=== PATIENT | female | born 1960 | race Caucasian/White ===

== ENCOUNTER 2017-12-10 13:40 | Emergency (ER) | payer BC, MEDICAID ==
[~2017-12-10] VITALS: Ht 165.1 cm; Wt 93.2 kg
[~2017-12-10 13:40] MED LIST: ALBU8.5H8 INH; ASPI-611 PO; ATOR40TA PO; CALC300T4 PO; CYAN25004 PO; FENO134C PO; FERR325T28 PO; FISH1CAP15 PO; FLUT1AER INH; GABA-532 PO; GLUC1KIT IM; HYDR-565 PO; LACT1CAP26 PO; LANTUS SQ; LEVO50TA PO; MAGN500C16 PO; MELA3TAB PO; MULT-1085 PO; NITR0.4T51 SL; NOR5T PO; PANT40TA4 PO; SENN-93 PO; SERT50TA PO; SEVE800T8 PO
[2017-12-10] MEDS ORDERED: furosemide 10 MG/1 ML 10ml inj IV ONE (14:10)
[2017-12-10 14:36] LABS: INR 0.9 INR; PROTHROMBIN TIME 9.7 SECONDS (9.0-12.0)
[2017-12-10 14:38] LABS: BASOPHILS % (AUTO) 0.5 % (0-1); EOSINOPHILS # (AUTO) 0.2 X10'3 (0-0.9); EOSINOPHILS % (AUTO) 4.5 % (0-6); HEMATOCRIT 27.4 % (35.0-45.0); HEMOGLOBIN 9.3 g/dl (12.0-16.0); LYMPHOCYTES # (AUTO) 0.8 X10'3 (1.1-4.8); LYMPHOCYTES % (AUTO) 15.3 % (21-51); MEAN CORPUSCULAR HEMOGLOBIN 31.6 PG (27.0-31.0); MEAN CORPUSCULAR HGB CONC 34.1 % (33.0-36.5); MEAN CORPUSCULAR VOLUME 92.5 FL (78-98); MEAN PLATELET VOLUME 8.5 FL (7.4-10.4); MONOCYTES # (AUTO) 0.3 X10'3 (0-0.9); MONOCYTES % (AUTO) 5.3 % (2-12); NEUTROPHILS # (AUTO) 4.1 X10'3 (1.8-7.7); NEUTROPHILS % (AUTO) 74.4 % (42-75); PLATELET COUNT 168 X10'3 (140-440); RED BLOOD COUNT 2.96 X10'6 (4.20-5.60); RED CELL DISTRIBUTION WIDTH 17.6 % (11.5-14.5); WHITE BLOOD COUNT 5.5 X10'3 (4.5-11.0)
[2017-12-10 14:42] LABS: ALANINE AMINOTRANSFERASE 41 U/L (12-78); ALBUMIN 2.4 G/DL (3.4-5.0); ALBUMIN/GLOBULIN RATIO 0.5 (1.1-1.5); ALKALINE PHOSPHATASE 135 IU/L (46-116); ANION GAP 12 (8-16); ASPARTATE AMINO TRANSFERASE 24 U/L (10-37); BILIRUBIN,TOTAL 0.4 MG/DL (0.1-1.0); BLOOD UREA NITROGEN 47 MG/DL (7-18); CALCIUM 8.4 MG/DL (8.5-10.1); CHLORIDE 105 MMOL/L (99-107); CREATININE 2.47 MG/DL (0.40-0.90); GLUCOSE 210 MG/DL (70-104); POTASSIUM 4.6 MMOL/L (3.5-5.1); SODIUM 142 MMOL/L (135-145); TOTAL CARBON DIOXIDE 25.5 MMOL/L (24-32); TOTAL PROTEIN 7.1 G/DL (6.4-8.2); eGFR 20 ML/MIN
[2017-12-10] MEDS ORDERED: FURO-149 PO (15:03)
[2017-12-10 15:28] VITALS: BP 173/78
== END 2017-12-10 15:30 | disposition home or self-care (01) ==
LOC: ER 13:41
DX: I13.0 Hypertensive heart and chronic kidney disease with heart failure and stage 1 through stage 4 chronic kidney disease, or unspecified chronic kidney disease (principal); E11.22 Type 2 diabetes mellitus with diabetic chronic kidney disease; N18.9 Chronic kidney disease, unspecified; I50.9 Heart failure, unspecified; R60.9 Edema, unspecified; I25.10 Atherosclerotic heart disease of native coronary artery without angina pectoris; J45.909 Unspecified asthma, uncomplicated; G89.29 Other chronic pain; Z90.49 Acquired absence of other specified parts of digestive tract; Z98.61 Coronary angioplasty status; Z88.1 Allergy status to other antibiotic agents; Z79.82 Long term (current) use of aspirin; Z79.4 Long term (current) use of insulin; Z79.899 Other long term (current) drug therapy; Z60.2 Problems related to living alone
CPT/HCPCS: 36415; 71045; 80053; 83880; 84484; 85025; 85610; 93005; 96374; 99285; J1940

== ENCOUNTER 2017-12-13 09:22 | Day surgery (SDC) | payer BC, MEDICAID ==
[~2017-12-13 09:22] MED LIST changes: +FURO-149 PO
[2017-12-13] MEDS ORDERED: LIDOcaine/PRILOcaine 5gm cream TP ONE (10:00)
== END 2017-12-13 10:38 | disposition home or self-care (01) ==
LOC: WOUND CARE 09:22
PROVIDERS: ATTEND Surgery
DX: E11.622 Type 2 diabetes mellitus with other skin ulcer (principal); L98.492 Non-pressure chronic ulcer of skin of other sites with fat layer exposed; K61.0 Anal abscess; E11.22 Type 2 diabetes mellitus with diabetic chronic kidney disease; I13.0 Hypertensive heart and chronic kidney disease with heart failure and stage 1 through stage 4 chronic kidney disease, or unspecified chronic kidney disease; I50.30 Unspecified diastolic (congestive) heart failure; I25.10 Atherosclerotic heart disease of native coronary artery without angina pectoris; J45.909 Unspecified asthma, uncomplicated; N18.4 Chronic kidney disease, stage 4 (severe); J44.0 Chronic obstructive pulmonary disease with (acute) lower respiratory infection; G89.29 Other chronic pain; E78.5 Hyperlipidemia, unspecified; E87.1 Hypo-osmolality and hyponatremia; E66.01 Morbid (severe) obesity due to excess calories; E89.0 Postprocedural hypothyroidism; E11.42 Type 2 diabetes mellitus with diabetic polyneuropathy; E11.649 Type 2 diabetes mellitus with hypoglycemia without coma; E43 Unspecified severe protein-calorie malnutrition; F32.9 Major depressive disorder, single episode, unspecified; F17.200 Nicotine dependence, unspecified, uncomplicated; Z98.51 Tubal ligation status; Z90.49 Acquired absence of other specified parts of digestive tract; Z79.82 Long term (current) use of aspirin; Z79.4 Long term (current) use of insulin; Z79.899 Other long term (current) drug therapy; Z68.33 Body mass index [BMI] 33.0-33.9, adult; Z79.890 Hormone replacement therapy; Z79.84 Long term (current) use of oral hypoglycemic drugs; Z92.3 Personal history of irradiation; Z85.850 Personal history of malignant neoplasm of thyroid; Z95.5 Presence of coronary angioplasty implant and graft; Z71.6 Tobacco abuse counseling
CPT/HCPCS: 17250; 36416; 82948; A6266; 97597

== ENCOUNTER 2017-12-20 10:25 | Outpatient (CLI) | payer BC, MEDICAID ==
[~2017-12-20 10:25] MED LIST changes: +HYDR-4353 PO; -HYDR-565 PO
[2017-12-20] MEDS ORDERED: LIDOcaine/PRILOcaine 5gm cream TP ONE (11:27)
== END 2017-12-20 12:40 | disposition home or self-care (01) ==
LOC: WOUND CARE 10:25 → EDSTATUS 10:30 → WOUND CARE 12:40
PROVIDERS: ATTEND Surgery
DX: E11.622 Type 2 diabetes mellitus with other skin ulcer (principal); L98.492 Non-pressure chronic ulcer of skin of other sites with fat layer exposed; K61.0 Anal abscess; E11.22 Type 2 diabetes mellitus with diabetic chronic kidney disease; I13.0 Hypertensive heart and chronic kidney disease with heart failure and stage 1 through stage 4 chronic kidney disease, or unspecified chronic kidney disease; I50.30 Unspecified diastolic (congestive) heart failure; I25.10 Atherosclerotic heart disease of native coronary artery without angina pectoris; J45.909 Unspecified asthma, uncomplicated; N18.4 Chronic kidney disease, stage 4 (severe); J44.0 Chronic obstructive pulmonary disease with (acute) lower respiratory infection; G89.29 Other chronic pain; E78.5 Hyperlipidemia, unspecified; E87.1 Hypo-osmolality and hyponatremia; E66.01 Morbid (severe) obesity due to excess calories; E89.0 Postprocedural hypothyroidism; E11.42 Type 2 diabetes mellitus with diabetic polyneuropathy; E11.649 Type 2 diabetes mellitus with hypoglycemia without coma; E43 Unspecified severe protein-calorie malnutrition; F32.9 Major depressive disorder, single episode, unspecified; F17.200 Nicotine dependence, unspecified, uncomplicated; Z98.51 Tubal ligation status; Z90.49 Acquired absence of other specified parts of digestive tract; Z79.82 Long term (current) use of aspirin; Z79.4 Long term (current) use of insulin; Z79.899 Other long term (current) drug therapy; Z68.33 Body mass index [BMI] 33.0-33.9, adult; Z79.890 Hormone replacement therapy; Z79.84 Long term (current) use of oral hypoglycemic drugs; Z92.3 Personal history of irradiation; Z85.850 Personal history of malignant neoplasm of thyroid; Z95.5 Presence of coronary angioplasty implant and graft; Z71.6 Tobacco abuse counseling
CPT/HCPCS: 36416; 82948; 99215; A6266

== ENCOUNTER 2018-01-10 10:30 | Day surgery (SDC) | payer BC, MEDICAID ==
[~2018-01-10 10:30] MED LIST changes: +LEVO250T58 PO; -MAGN500C16 PO; +PRED5TAB PO
== END 2018-01-10 12:57 | disposition home or self-care (01) ==
LOC: WOUND CARE 10:30
PROVIDERS: ATTEND Surgery
DX: E11.622 Type 2 diabetes mellitus with other skin ulcer (principal); L98.492 Non-pressure chronic ulcer of skin of other sites with fat layer exposed; K61.0 Anal abscess; E11.22 Type 2 diabetes mellitus with diabetic chronic kidney disease; I13.0 Hypertensive heart and chronic kidney disease with heart failure and stage 1 through stage 4 chronic kidney disease, or unspecified chronic kidney disease; I50.30 Unspecified diastolic (congestive) heart failure; I25.10 Atherosclerotic heart disease of native coronary artery without angina pectoris; J45.909 Unspecified asthma, uncomplicated; N18.4 Chronic kidney disease, stage 4 (severe); J44.0 Chronic obstructive pulmonary disease with (acute) lower respiratory infection; G89.29 Other chronic pain; E78.5 Hyperlipidemia, unspecified; E87.1 Hypo-osmolality and hyponatremia; E66.01 Morbid (severe) obesity due to excess calories; E89.0 Postprocedural hypothyroidism; E11.42 Type 2 diabetes mellitus with diabetic polyneuropathy; E11.649 Type 2 diabetes mellitus with hypoglycemia without coma; E43 Unspecified severe protein-calorie malnutrition; F32.9 Major depressive disorder, single episode, unspecified; F17.200 Nicotine dependence, unspecified, uncomplicated; Z98.51 Tubal ligation status; Z90.49 Acquired absence of other specified parts of digestive tract; Z79.82 Long term (current) use of aspirin; Z79.4 Long term (current) use of insulin; Z79.899 Other long term (current) drug therapy; Z68.33 Body mass index [BMI] 33.0-33.9, adult; Z79.890 Hormone replacement therapy; Z79.84 Long term (current) use of oral hypoglycemic drugs; Z92.3 Personal history of irradiation; Z85.850 Personal history of malignant neoplasm of thyroid; Z95.5 Presence of coronary angioplasty implant and graft; Z71.6 Tobacco abuse counseling
CPT/HCPCS: 97597; A6266

== ENCOUNTER 2018-01-24 11:06 | Outpatient (CLI) | payer BC, MEDICAID ==
[~2018-01-24 11:06] MED LIST changes: -LEVO250T58 PO
== END 2018-01-24 12:26 | disposition home or self-care (01) ==
LOC: WOUND CARE 11:06
PROVIDERS: ATTEND Surgery
DX: E11.622 Type 2 diabetes mellitus with other skin ulcer (principal); L98.492 Non-pressure chronic ulcer of skin of other sites with fat layer exposed; K61.0 Anal abscess; E11.22 Type 2 diabetes mellitus with diabetic chronic kidney disease; I13.0 Hypertensive heart and chronic kidney disease with heart failure and stage 1 through stage 4 chronic kidney disease, or unspecified chronic kidney disease; I50.30 Unspecified diastolic (congestive) heart failure; I25.10 Atherosclerotic heart disease of native coronary artery without angina pectoris; J45.909 Unspecified asthma, uncomplicated; N18.4 Chronic kidney disease, stage 4 (severe); J44.0 Chronic obstructive pulmonary disease with (acute) lower respiratory infection; G89.29 Other chronic pain; E78.5 Hyperlipidemia, unspecified; E87.1 Hypo-osmolality and hyponatremia; E66.01 Morbid (severe) obesity due to excess calories; E89.0 Postprocedural hypothyroidism; E11.42 Type 2 diabetes mellitus with diabetic polyneuropathy; E11.649 Type 2 diabetes mellitus with hypoglycemia without coma; E43 Unspecified severe protein-calorie malnutrition; F32.9 Major depressive disorder, single episode, unspecified; F17.200 Nicotine dependence, unspecified, uncomplicated; Z98.51 Tubal ligation status; Z90.49 Acquired absence of other specified parts of digestive tract; Z79.82 Long term (current) use of aspirin; Z79.4 Long term (current) use of insulin; Z79.899 Other long term (current) drug therapy; Z68.33 Body mass index [BMI] 33.0-33.9, adult; Z79.890 Hormone replacement therapy; Z79.84 Long term (current) use of oral hypoglycemic drugs; Z92.3 Personal history of irradiation; Z85.850 Personal history of malignant neoplasm of thyroid; Z95.5 Presence of coronary angioplasty implant and graft; Z71.6 Tobacco abuse counseling
CPT/HCPCS: 99215; A6021

== ENCOUNTER 2018-01-31 08:52 | Day surgery (SDC) | payer BC, MEDICAID | END 2018-01-31 10:12 | disposition home or self-care (01) | LOC: WOUND CARE 08:52 | PROVIDERS: ATTEND Surgery | DX: E11.622 Type 2 diabetes mellitus with other skin ulcer (principal); L98.492 Non-pressure chronic ulcer of skin of other sites with fat layer exposed; K61.0 Anal abscess; E11.22 Type 2 diabetes mellitus with diabetic chronic kidney disease; I13.0 Hypertensive heart and chronic kidney disease with heart failure and stage 1 through stage 4 chronic kidney disease, or unspecified chronic kidney disease; I50.30 Unspecified diastolic (congestive) heart failure; I25.10 Atherosclerotic heart disease of native coronary artery without angina pectoris; J45.909 Unspecified asthma, uncomplicated; N18.4 Chronic kidney disease, stage 4 (severe); J44.0 Chronic obstructive pulmonary disease with (acute) lower respiratory infection; G89.29 Other chronic pain; E78.5 Hyperlipidemia, unspecified; E87.1 Hypo-osmolality and hyponatremia; E66.01 Morbid (severe) obesity due to excess calories; E89.0 Postprocedural hypothyroidism; E11.42 Type 2 diabetes mellitus with diabetic polyneuropathy; E11.649 Type 2 diabetes mellitus with hypoglycemia without coma; E43 Unspecified severe protein-calorie malnutrition; F32.9 Major depressive disorder, single episode, unspecified; F17.200 Nicotine dependence, unspecified, uncomplicated; Z98.51 Tubal ligation status; Z90.49 Acquired absence of other specified parts of digestive tract; Z79.82 Long term (current) use of aspirin; Z79.4 Long term (current) use of insulin; Z79.899 Other long term (current) drug therapy; Z68.33 Body mass index [BMI] 33.0-33.9, adult; Z79.890 Hormone replacement therapy; Z79.84 Long term (current) use of oral hypoglycemic drugs; Z92.3 Personal history of irradiation; Z85.850 Personal history of malignant neoplasm of thyroid; Z95.5 Presence of coronary angioplasty implant and graft; Z71.6 Tobacco abuse counseling | CPT/HCPCS: 97597; A6021 ==

== ENCOUNTER 2018-02-21 10:01 | Outpatient (CLI) | payer BC, MEDICAID ==
[2018-02-21] MEDS ORDERED: BUDE10.2 INH (14:48)
== END 2018-02-21 11:09 | disposition home or self-care (01) ==
LOC: WOUND CARE 10:01
PROVIDERS: ATTEND Surgery
DX: E11.622 Type 2 diabetes mellitus with other skin ulcer (principal); L98.492 Non-pressure chronic ulcer of skin of other sites with fat layer exposed; K61.0 Anal abscess; E11.22 Type 2 diabetes mellitus with diabetic chronic kidney disease; I13.0 Hypertensive heart and chronic kidney disease with heart failure and stage 1 through stage 4 chronic kidney disease, or unspecified chronic kidney disease; I50.30 Unspecified diastolic (congestive) heart failure; I25.10 Atherosclerotic heart disease of native coronary artery without angina pectoris; J45.909 Unspecified asthma, uncomplicated; N18.4 Chronic kidney disease, stage 4 (severe); J44.0 Chronic obstructive pulmonary disease with (acute) lower respiratory infection; G89.29 Other chronic pain; E78.5 Hyperlipidemia, unspecified; E87.1 Hypo-osmolality and hyponatremia; E66.01 Morbid (severe) obesity due to excess calories; E89.0 Postprocedural hypothyroidism; E11.42 Type 2 diabetes mellitus with diabetic polyneuropathy; E11.649 Type 2 diabetes mellitus with hypoglycemia without coma; E43 Unspecified severe protein-calorie malnutrition; F32.9 Major depressive disorder, single episode, unspecified; F17.200 Nicotine dependence, unspecified, uncomplicated; Z98.51 Tubal ligation status; Z90.49 Acquired absence of other specified parts of digestive tract; Z79.82 Long term (current) use of aspirin; Z79.4 Long term (current) use of insulin; Z79.899 Other long term (current) drug therapy; Z68.33 Body mass index [BMI] 33.0-33.9, adult; Z79.890 Hormone replacement therapy; Z79.84 Long term (current) use of oral hypoglycemic drugs; Z92.3 Personal history of irradiation; Z85.850 Personal history of malignant neoplasm of thyroid; Z95.5 Presence of coronary angioplasty implant and graft; Z71.6 Tobacco abuse counseling
CPT/HCPCS: 36416; 82948; 99215

== ENCOUNTER 2018-03-10 16:38 | Emergency (ER) | payer BC, MEDICAID ==
[~2018-03-10] VITALS: Ht 165.1 cm; Wt 90.0 kg
[~2018-03-10 16:38] MED LIST changes: +BUDE10.2 INH; -NOR5T PO
[2018-03-10 17:32] LABS: BASOPHILS % (AUTO) 0 % (0-1); EOSINOPHILS % (AUTO) 0 % (0-6); HEMOGLOBIN 11.9 g/dl (12.0-16.0); LYMPHOCYTES # (AUTO) 0.6 X10'3 (1.1-4.8); LYMPHOCYTES % (AUTO) 4.3 % (21-51); MEAN CORPUSCULAR HGB CONC 32.1 % (33.0-36.5); MEAN CORPUSCULAR VOLUME 96.3 FL (78-98); MEAN PLATELET VOLUME 7.8 FL (7.4-10.4); MONOCYTES # (AUTO) 0.5 X10'3 (0-0.9); MONOCYTES % (AUTO) 3.8 % (2-12); NEUTROPHILS # (AUTO) 12.5 X10'3 (1.8-7.7); NEUTROPHILS % (AUTO) 91.9 % (42-75); PLATELET COUNT 312 X10'3 (140-440); RED BLOOD COUNT 3.84 X10'6 (4.20-5.60); RED CELL DISTRIBUTION WIDTH 16.4 % (11.5-14.5); WHITE BLOOD COUNT 13.6 X10'3 (4.5-11.0)
[2018-03-10] MEDS ORDERED: vancomycin/NS 1 GM ADD-VANTAGE 250 ML IV ONE (17:55)
[2018-03-10] MEDS ORDERED: levoFLOXACIN-Levaquin 750MG/D5 150 ML IV ONE (17:55)
[2018-03-10 17:57] LABS: ALANINE AMINOTRANSFERASE 25 U/L (12-78); ALBUMIN/GLOBULIN RATIO 0.6 (1.1-1.5); ALKALINE PHOSPHATASE 69 IU/L (46-116); ANION GAP 11 (8-16); ASPARTATE AMINO TRANSFERASE 31 U/L (10-37); BILIRUBIN,TOTAL 0.7 MG/DL (0.1-1.0); BLOOD UREA NITROGEN 23 MG/DL (7-18); BUN/CREATININE RATIO 10.7 (6.6-38.0); CALCIUM 8.9 MG/DL (8.5-10.1); CHLORIDE 97 MMOL/L (99-107); CREATININE 2.14 MG/DL (0.40-0.90); GLUCOSE 120 MG/DL (70-104); POTASSIUM 3.3 MMOL/L (3.5-5.1); SODIUM 139 MMOL/L (135-145); TOTAL CARBON DIOXIDE 31.4 MMOL/L (24-32); TOTAL PROTEIN 8.1 G/DL (6.4-8.2); eGFR 24 ML/MIN
[2018-03-10] MEDS ORDERED: LEVO500T89 PO (19:28)
[2018-03-10 19:49] VITALS: BP 157/77
== END 2018-03-10 20:30 | disposition home or self-care (01) ==
LOC: ER 16:39
DX: J18.9 Pneumonia, unspecified organism (principal); J44.9 Chronic obstructive pulmonary disease, unspecified; I13.0 Hypertensive heart and chronic kidney disease with heart failure and stage 1 through stage 4 chronic kidney disease, or unspecified chronic kidney disease; E11.22 Type 2 diabetes mellitus with diabetic chronic kidney disease; N18.9 Chronic kidney disease, unspecified; I50.9 Heart failure, unspecified; G89.29 Other chronic pain; Z90.49 Acquired absence of other specified parts of digestive tract; Z98.61 Coronary angioplasty status; Z98.51 Tubal ligation status; Z99.2 Dependence on renal dialysis; Z88.1 Allergy status to other antibiotic agents; Z79.82 Long term (current) use of aspirin; Z79.4 Long term (current) use of insulin; Z79.899 Other long term (current) drug therapy; Z60.2 Problems related to living alone
CPT/HCPCS: 36415; 71046; 80053; 83605; 84145; 85025; 87040; 87502; 87503; 93005; 96365; 96366; 96367; 99284; J1956; J3370

== ENCOUNTER 2018-04-15 10:38 | Inpatient (IN) | payer BC, MEDICAID | END 2018-04-17 12:05 | disposition home or self-care (01) | LOC: ER 10:38 → ED HOLD 13:17 → PCU 3S 15:45 ==

== ENCOUNTER 2018-04-25 06:18 | Day surgery (SDC) | payer MEDICARE, BC, MEDICAID ==
[~2018-04-25] VITALS: Ht 165.1 cm; Wt 93.6 kg
[2018-04-25] VITALS (11 sets, daily range): BP systolic 95–128; BP diastolic 54–85
[~2018-04-25 06:18] MED LIST changes: -ATOR40TA PO; +ATOR40TA71 PO; -CALC300T4 PO; -FERR325T28 PO; +FIBER PO; -FLUT1AER INH; -HYDR-4353 PO; +LEVO250T58 PO; -LEVO50TA PO; +LEVO50TA8 PO
[2018-04-25] MEDS ORDERED: LACT1CAP65 PO (06:46)
[2018-04-25] MEDS ORDERED: PANT-47 PO (06:46)
[2018-04-25] MEDS ORDERED: CALC500T11 PO (06:46)
[2018-04-25] MEDS ORDERED: FURO40TA4 PO (06:46)
[2018-04-25] MEDS ORDERED: SEVE800T8 PO (06:46)
[2018-04-25] MEDS ORDERED: diphenhydrAMINE 25mg capsule PO PRN (06:50)
[2018-04-25] MEDS ORDERED: sod bicarbonate 150mEq in D5W 1,150 ML IV ONE (06:50)
[2018-04-25] MEDS ORDERED: normal saline 1000ml 1,000 ML IV SCH (06:50)
[2018-04-25] MEDS ORDERED: METO-395 PO (06:50)
[2018-04-25] MEDS ORDERED: iohexol 350 MG/ML 50ML vial IV ONE (07:19)
[2018-04-25] MEDS ORDERED: iohexol 350MG/ML 100ml bottle IV ONE ×2 (07:19→08:30)
[2018-04-25] MEDS ORDERED: LIDOcaine 1% (10mg/ml)w/preservative injection 20ml MDV ONE (07:19)
[2018-04-25 07:28] LABS: BASOPHILS % (AUTO) 0.9 % (0-1); EOSINOPHILS # (AUTO) 0.1 X10'3 (0-0.9); EOSINOPHILS % (AUTO) 2.4 % (0-6); HEMATOCRIT 37.8 % (35.0-45.0); HEMOGLOBIN 12.1 g/dl (12.0-16.0); LYMPHOCYTES # (AUTO) 1.1 X10'3 (1.1-4.8); LYMPHOCYTES % (AUTO) 20.5 % (21-51); MEAN CORPUSCULAR HEMOGLOBIN 30.7 PG (27.0-31.0); MEAN CORPUSCULAR HGB CONC 32.1 g/dL (33.0-36.5); MEAN CORPUSCULAR VOLUME 95.8 FL (78-98); MEAN PLATELET VOLUME 8.3 FL (7.4-10.4); MONOCYTES # (AUTO) 0.4 X10'3 (0-0.9); MONOCYTES % (AUTO) 8.5 % (2-12); NEUTROPHILS # (AUTO) 3.6 X10'3 (1.8-7.7); NEUTROPHILS % (AUTO) 67.7 % (42-75); PLATELET COUNT 267 X10'3 (140-440); RED BLOOD COUNT 3.94 X10'6 (4.20-5.60); RED CELL DISTRIBUTION WIDTH 17.9 % (11.5-14.5); WHITE BLOOD COUNT 5.3 X10'3 (4.5-11.0)
[2018-04-25 07:30] LABS: ALBUMIN 3.3 G/DL (3.4-5.0); ANION GAP 10 (8-16); BLOOD UREA NITROGEN 31 MG/DL (7-18); BUN/CREATININE RATIO 9.7 (6.6-38.0); CALCIUM 9.1 MG/DL (8.5-10.1); CHLORIDE 99 MMOL/L (99-107); CREATININE 3.19 MG/DL (0.40-0.90); GLUCOSE 208 MG/DL (70-104); POTASSIUM 4.2 MMOL/L (3.5-5.1); SODIUM 141 MMOL/L (135-145); TOTAL CARBON DIOXIDE 32.5 MMOL/L (24-32); eGFR 15 ML/MIN
[2018-04-25 07:36] LABS: PROTHROMBIN TIME 10.2 SECONDS (9.0-12.0)
[2018-04-25] MEDS ORDERED: fentaNYL/PF 50MCG/1 ML 2ML syringe ONE (07:50)
[2018-04-25] MEDS ORDERED: midazolam 2 mg/2 ml injection ONE (07:50)
[2018-04-25] MEDS ORDERED: heparin 1,000unit/ml 10ml vial 10 ML ONE (08:18)
[2018-04-25] MEDS ORDERED: clopidogrel 300mg tablet ONE (08:47)
== END 2018-04-25 13:30 | disposition home or self-care (01) ==
LOC: SSTAY O 06:18
PROVIDERS: ATTEND Internal Medicine Cardiovascular Disease
DX: I25.118 Atherosclerotic heart disease of native coronary artery with other forms of angina pectoris (principal); E78.5 Hyperlipidemia, unspecified; J44.9 Chronic obstructive pulmonary disease, unspecified; E11.22 Type 2 diabetes mellitus with diabetic chronic kidney disease; I12.0 Hypertensive chronic kidney disease with stage 5 chronic kidney disease or end stage renal disease; N18.6 End stage renal disease; F32.9 Major depressive disorder, single episode, unspecified; E89.0 Postprocedural hypothyroidism; Z98.51 Tubal ligation status; Z99.2 Dependence on renal dialysis; Z98.41 Cataract extraction status, right eye; Z98.42 Cataract extraction status, left eye; Z86.14 Personal history of Methicillin resistant Staphylococcus aureus infection; Z85.850 Personal history of malignant neoplasm of thyroid; Z92.3 Personal history of irradiation; Z87.891 Personal history of nicotine dependence; Z88.1 Allergy status to other antibiotic agents; Z79.4 Long term (current) use of insulin; Z99.81 Dependence on supplemental oxygen; Z87.19 Personal history of other diseases of the digestive system; Z90.49 Acquired absence of other specified parts of digestive tract; Z95.5 Presence of coronary angioplasty implant and graft; Z79.82 Long term (current) use of aspirin; Z79.891 Long term (current) use of opiate analgesic; Z79.899 Other long term (current) drug therapy; Z98.890 Other specified postprocedural states; Z83.3 Family history of diabetes mellitus; Z82.49 Family history of ischemic heart disease and other diseases of the circulatory system
CPT/HCPCS: 36415; 80048; 82948; 83735; 85025; 85610; 93458; 99152; 99153; A6257; C1760; C1874; C9600; J1644; J2001; J2250; J3010; J7030; Q0163; Q9967; 93005; A4620; C1725; C1769; C1894

== ENCOUNTER 2018-05-11 16:56 | Inpatient (IN) | payer MEDICARE, BC, MEDICAID | END 2018-05-13 22:35 | disposition home or self-care (01) | LOC: ER 16:56 → PCU 3S 05-12 01:41 → ED HOLD 21:10 | DX: N39.0 Urinary tract infection, site not specified (principal); N18.6 End stage renal disease; R06.03 Acute respiratory distress ==

== ENCOUNTER 2018-06-14 17:20 | Inpatient (IN) | payer MEDICARE, MEDICAID, BC | END 2018-06-19 17:51 | disposition home or self-care (01) | LOC: PCU 3S 06-15 00:10 → ER 17:20 → ED HOLD 22:51 | PROC: 0W9B3ZX Drainage of Left Pleural Cavity, Percutaneous Approach, Diagnostic (ICD-10-PCS; principal; ~2018-06-14) | PROC: 0W993ZX Drainage of Right Pleural Cavity, Percutaneous Approach, Diagnostic (ICD-10-PCS; ~2018-06-14) | PROC: 5A1D70Z Performance of Urinary Filtration, Intermittent, Less than 6 Hours Per Day (ICD-10-PCS; ~2018-06-14) | DX: J18.9 Pneumonia, unspecified organism (principal); J96.01 Acute respiratory failure with hypoxia; N18.6 End stage renal disease; J98.11 Atelectasis; J90 Pleural effusion, not elsewhere classified; E87.70 Fluid overload, unspecified ==

== ENCOUNTER 2018-07-03 15:10 | Outpatient (CLI) | payer MEDICARE, MEDICAID ==
[~2018-07-03 15:10] MED LIST changes: +ASPI-1264 PO; -ASPI-611 PO; +ATOR20TA66 PO; -ATOR40TA71 PO; +BECL7.3A7 INH; +CALC500T11 PO; +CLOP75TA35 PO; -FENO134C PO; +FENO160T PO; -FIBER PO; -FURO-149 PO; +FURO40TA4 PO; -LACT1CAP26 PO; -LEVO250T58 PO; +PANT-47 PO; -PANT40TA4 PO; -PRED5TAB PO
== END 2018-07-03 23:59 | disposition home or self-care (01) ==
LOC: RAD 15:10
PROVIDERS: ATTEND Nurse Practitioner Family
DX: R13.14 Dysphagia, pharyngoesophageal phase (principal); K21.9 Gastro-esophageal reflux disease without esophagitis; I11.0 Hypertensive heart disease with heart failure; I50.9 Heart failure, unspecified; J44.9 Chronic obstructive pulmonary disease, unspecified; E11.9 Type 2 diabetes mellitus without complications; Z88.1 Allergy status to other antibiotic agents
CPT/HCPCS: 74230

== ENCOUNTER 2018-07-24 10:16 | Inpatient (IN) | payer MEDICARE, OTHER, MEDICAID | END 2018-07-25 15:30 | disposition home or self-care (01) | LOC: ER 10:16 → ORTHO 4S 15:24 | DX: J96.01 Acute respiratory failure with hypoxia (principal); N18.6 End stage renal disease; J90 Pleural effusion, not elsewhere classified; Z99.2 Dependence on renal dialysis ==

== ENCOUNTER 2018-08-19 07:10 | Day surgery (SDC) | payer MEDICARE ==
[~2018-08-19] VITALS: Ht 165.1 cm; Wt 94.0 kg
[~2018-08-19 07:10] MED LIST changes: +ALBU2.5V10 IH; -ALBU8.5H8 INH; +AMLO-314 PO; -ATOR20TA66 PO; -CALC500T11 PO; +CALC667T6 PO; +DOCU-261 PO; -FISH1CAP15 PO; +FOLI1CAP8 PO; +LACT1CAP65 PO; +METO-395 PO; +METO5TAB85 PO; +MIDO5TAB PO; -MULT-1085 PO; +OMEG1CAP46 PO; -SENN-93 PO
[2018-08-19 07:38] VITALS: BP 151/71
[2018-08-19] MEDS ORDERED: cefazolin/dext.iso 2gm/100ml 100 ML IV ONE (07:39)
[2018-08-19] MEDS ORDERED: normal saline 1000ml 1,000 ML IV SCH (07:40)
[2018-08-19 08:02] LABS: BASOPHILS # (AUTO) 0.1 X10'3 (0-0.2); BASOPHILS % (AUTO) 1.3 % (0-1); EOSINOPHILS # (AUTO) 0.1 X10'3 (0-0.9); EOSINOPHILS % (AUTO) 1.4 % (0-6); HEMATOCRIT 32.1 % (35.0-45.0); HEMOGLOBIN 10.2 g/dl (12.0-16.0); LYMPHOCYTES # (AUTO) 0.8 X10'3 (1.1-4.8); LYMPHOCYTES % (AUTO) 12.2 % (21-51); MEAN CORPUSCULAR HEMOGLOBIN 30.6 PG (27.0-31.0); MEAN CORPUSCULAR HGB CONC 31.7 g/dL (33.0-36.5); MEAN CORPUSCULAR VOLUME 96.5 FL (78-98); MEAN PLATELET VOLUME 7.8 FL (7.4-10.4); MONOCYTES # (AUTO) 0.5 X10'3 (0-0.9); MONOCYTES % (AUTO) 7.3 % (2-12); NEUTROPHILS # (AUTO) 4.9 X10'3 (1.8-7.7); NEUTROPHILS % (AUTO) 77.8 % (42-75); PLATELET COUNT 265 X10'3 (140-440); RED BLOOD COUNT 3.32 X10'6 (4.20-5.60); RED CELL DISTRIBUTION WIDTH 17.4 % (11.5-14.5); WHITE BLOOD COUNT 6.3 X10'3 (4.5-11.0)
[2018-08-19] MEDS ORDERED: heparin 1,000unit/ml 10ml vial 10 ML ONE (08:31)
[2018-08-19] MEDS ORDERED: LIDOcaine 1%/PF 5ML 10 MG/ML VIAL ONE (08:31)
[2018-08-19] MEDS ORDERED: fentaNYL/PF 50MCG/1 ML 2ML syringe IV PRN (08:35)
[2018-08-19] MEDS ORDERED: midazolam 2 mg/2 ml injection IV PRN (08:35)
[2018-08-19] MEDS ORDERED: LIDOcaine 1%/PF 5ML 10 MG/ML VIAL SQ ONE (08:35)
[2018-08-19] MEDS ORDERED: heparin 1,000 units/ml 10ml inj ICATH ONE (08:35)
[2018-08-19 08:39] LABS: ALBUMIN 3.2 G/DL (3.4-5.0); ANION GAP 6 (8-16); BLOOD UREA NITROGEN 75 MG/DL (7-18); CALCIUM 9.2 MG/DL (8.5-10.1); CHLORIDE 106 MMOL/L (99-107); CREATININE 4.99 MG/DL (0.40-0.90); GLUCOSE 173 MG/DL (70-104); SODIUM 142 MMOL/L (135-145); TOTAL CARBON DIOXIDE 30.1 MMOL/L (24-32); eGFR 9 ML/MIN
[2018-08-19 08:47] LABS: POTASSIUM 6.1 MMOL/L (3.5-5.1)
[2018-08-19] MEDS ORDERED: midazolam 2 mg/2 ml injection ONE (08:51)
[2018-08-19] MEDS ORDERED: fentaNYL/PF 50MCG/1 ML 2ML syringe ONE (08:51)
[2018-08-19 09:50] VITALS: BP 142/66
[2018-08-19 10:05] VITALS: BP 148/70
[2018-08-19 10:20] VITALS: BP 136/64
[2018-08-19 10:35] VITALS: BP 150/72
--- NOTE | 2018-08-19 10:35 | NUR ---
phone call to [facility]. Pt. is expected. Informed them of potassium level. Noted.
[2018-08-19 11:04] VITALS: BP 142/66
== END 2018-08-19 10:55 | disposition home or self-care (01) ==
LOC: SSTAY O 07:10
PROVIDERS: ATTEND Radiology Diagnostic Radiology
DX: I13.0 Hypertensive heart and chronic kidney disease with heart failure and stage 1 through stage 4 chronic kidney disease, or unspecified chronic kidney disease (principal); N18.9 Chronic kidney disease, unspecified; E11.22 Type 2 diabetes mellitus with diabetic chronic kidney disease; I25.10 Atherosclerotic heart disease of native coronary artery without angina pectoris; I50.9 Heart failure, unspecified; J44.9 Chronic obstructive pulmonary disease, unspecified; D64.9 Anemia, unspecified; F32.9 Major depressive disorder, single episode, unspecified; Z86.14 Personal history of Methicillin resistant Staphylococcus aureus infection; Z85.9 Personal history of malignant neoplasm, unspecified; Z79.01 Long term (current) use of anticoagulants; Z79.899 Other long term (current) drug therapy; Z88.6 Allergy status to analgesic agent; Z88.8 Allergy status to other drugs, medicaments and biological substances; Z83.3 Family history of diabetes mellitus; Z82.49 Family history of ischemic heart disease and other diseases of the circulatory system; Z79.4 Long term (current) use of insulin
CPT/HCPCS: 36415; 36581; 77001; 80048; 82948; 85025; 99152; 99153; C1750; C1769; J1644; J2001; J2250; J3010; J7030; A9270

== ENCOUNTER 2018-08-29 08:45 | Emergency (ER) | payer MEDICARE ==
[~2018-08-29] VITALS: Ht 165.1 cm; Wt 91.0 kg
--- NOTE | 2018-08-29 09:10 | NUR ---
PT STATES HER DAUGHTER IS COMING IN LATER, CALLED [phone] TO HAVE HER BRING PT MEDICATIONS OR LIST TO HOSPITAL
[2018-08-29 09:18] LABS: BASOPHILS % (AUTO) 0.8 % (0-1); EOSINOPHILS # (AUTO) 0.1 X10'3 (0-0.9); EOSINOPHILS % (AUTO) 1.2 % (0-6); HEMATOCRIT 28.5 % (35.0-45.0); HEMOGLOBIN 9.3 g/dl (12.0-16.0); LYMPHOCYTES # (AUTO) 0.9 X10'3 (1.1-4.8); LYMPHOCYTES % (AUTO) 16.8 % (21-51); MEAN CORPUSCULAR HEMOGLOBIN 30.8 PG (27.0-31.0); MEAN CORPUSCULAR HGB CONC 32.5 g/dL (33.0-36.5); MEAN CORPUSCULAR VOLUME 94.8 FL (78-98); MEAN PLATELET VOLUME 7.7 FL (7.4-10.4); MONOCYTES # (AUTO) 0.5 X10'3 (0-0.9); MONOCYTES % (AUTO) 9.8 % (2-12); NEUTROPHILS # (AUTO) 3.8 X10'3 (1.8-7.7); NEUTROPHILS % (AUTO) 71.4 % (42-75); PLATELET COUNT 223 X10'3 (140-440); RED BLOOD COUNT 3.01 X10'6 (4.20-5.60); RED CELL DISTRIBUTION WIDTH 16.7 % (11.5-14.5); WHITE BLOOD COUNT 5.3 X10'3 (4.5-11.0)
[2018-08-29 09:33] LABS: PARTIAL THROMBOPLASTIN TIME 31 SECONDS (22-32)
[2018-08-29 09:34] LABS: ALANINE AMINOTRANSFERASE 18 U/L (12-78); ALBUMIN 2.6 G/DL (3.4-5.0); ALBUMIN/GLOBULIN RATIO 0.6 (1.1-1.5); ALKALINE PHOSPHATASE 107 IU/L (46-116); ANION GAP 2 (8-16); ASPARTATE AMINO TRANSFERASE 18 U/L (10-37); BILIRUBIN,TOTAL 0.3 MG/DL (0.1-1.0); BLOOD UREA NITROGEN 25 MG/DL (7-18); BUN/CREATININE RATIO 8.3 (6.6-38.0); CALCIUM 8.7 MG/DL (8.5-10.1); CHLORIDE 103 MMOL/L (99-107); CREATININE 3.02 MG/DL (0.40-0.90); GLUCOSE 263 MG/DL (70-104); POTASSIUM 4.4 MMOL/L (3.5-5.1); SODIUM 139 MMOL/L (135-145); TOTAL CARBON DIOXIDE 34.4 MMOL/L (24-32); TOTAL PROTEIN 7.2 G/DL (6.4-8.2); eGFR 16 ML/MIN
--- NOTE | 2018-08-29 09:51 | NUR ---
ASSUMED CARE OF PT FROM KAELYN PANDA, PT IS RESTING QUIETLY ON GURNEY, RESP EVEN AND UNLABORED, SR ON THE MONITOR, NO ECTOPY
--- NOTE | 2018-08-29 10:59 | NUR ---
PT ASKING TO SIT UP ON EDGE OF BED, FAMILY WITH PT, PT IS AWAKE, ALERT, GCS 15, RESP EVEN AND UNLABORED AT REST, ON 2LITERS 02 NASAL CANNULA, PRODUCTIVE COUGH WITH YELLOW SPUTUM, PT WAITING TO BE EVALUATED BY HOSPITALIST
[2018-08-29 11:37] VITALS: BP 145/72
== END 2018-08-29 11:29 | disposition home or self-care (01) ==
LOC: ER 08:45
DX: I13.2 Hypertensive heart and chronic kidney disease with heart failure and with stage 5 chronic kidney disease, or end stage renal disease (principal); I50.9 Heart failure, unspecified; N18.6 End stage renal disease; E11.22 Type 2 diabetes mellitus with diabetic chronic kidney disease; I25.10 Atherosclerotic heart disease of native coronary artery without angina pectoris; J44.9 Chronic obstructive pulmonary disease, unspecified; G89.29 Other chronic pain; Z99.2 Dependence on renal dialysis; Z86.14 Personal history of Methicillin resistant Staphylococcus aureus infection; Z98.51 Tubal ligation status; Z90.49 Acquired absence of other specified parts of digestive tract; Z98.61 Coronary angioplasty status; Z98.890 Other specified postprocedural states; Z60.2 Problems related to living alone; Z56.0 Unemployment, unspecified; Z88.1 Allergy status to other antibiotic agents; Z88.5 Allergy status to narcotic agent; Z88.8 Allergy status to other drugs, medicaments and biological substances; Z79.4 Long term (current) use of insulin; Z79.82 Long term (current) use of aspirin; Z79.899 Other long term (current) drug therapy
CPT/HCPCS: 36415; 71045; 80053; 84484; 85025; 85610; 85730; 93005; 99285

== ENCOUNTER 2018-08-31 00:30 | Emergency (ER) | payer MEDICARE ==
[~2018-08-31] VITALS: Ht 165.1 cm; Wt 87.3 kg
[2018-08-31] MEDS ORDERED: ipratropium/albuterol 3ml nebule NEB ONE (02:05)
[2018-08-31] MEDS ORDERED: albuterol 2.5 MG/3 ML nebule NEB ONE (02:05)
[2018-08-31 02:34] LABS: ALANINE AMINOTRANSFERASE 20 U/L (12-78); ALBUMIN 2.9 G/DL (3.4-5.0); ALBUMIN/GLOBULIN RATIO 0.6 (1.1-1.5); ALKALINE PHOSPHATASE 111 IU/L (46-116); ANION GAP 4 (8-16); ASPARTATE AMINO TRANSFERASE 21 U/L (10-37); BILIRUBIN,TOTAL 0.4 MG/DL (0.1-1.0); BLOOD UREA NITROGEN 14 MG/DL (7-18); BUN/CREATININE RATIO 6.3 (6.6-38.0); CALCIUM 8.9 MG/DL (8.5-10.1); CHLORIDE 100 MMOL/L (99-107); CREATININE 2.23 MG/DL (0.40-0.90); GLUCOSE 232 MG/DL (70-104); POTASSIUM 3.6 MMOL/L (3.5-5.1); SODIUM 137 MMOL/L (135-145); TOTAL CARBON DIOXIDE 33.4 MMOL/L (24-32); TOTAL PROTEIN 7.7 G/DL (6.4-8.2); eGFR 23 ML/MIN
[2018-08-31 02:49] LABS: BASOPHILS # (AUTO) 0.1 X10'3 (0-0.2); EOSINOPHILS # (AUTO) 0.1 X10'3 (0-0.9); EOSINOPHILS % (AUTO) 0.8 % (0-6); HEMATOCRIT 30.4 % (35.0-45.0); HEMOGLOBIN 9.8 g/dl (12.0-16.0); LYMPHOCYTES # (AUTO) 0.9 X10'3 (1.1-4.8); LYMPHOCYTES % (AUTO) 13.5 % (21-51); MEAN CORPUSCULAR HEMOGLOBIN 30.6 PG (27.0-31.0); MEAN CORPUSCULAR HGB CONC 32.3 g/dL (33.0-36.5); MEAN CORPUSCULAR VOLUME 94.8 FL (78-98); MEAN PLATELET VOLUME 8.1 FL (7.4-10.4); MONOCYTES # (AUTO) 0.7 X10'3 (0-0.9); MONOCYTES % (AUTO) 9.6 % (2-12); NEUTROPHILS # (AUTO) 5.2 X10'3 (1.8-7.7); NEUTROPHILS % (AUTO) 75.1 % (42-75); PLATELET COUNT 246 X10'3 (140-440); RED BLOOD COUNT 3.21 X10'6 (4.20-5.60); RED CELL DISTRIBUTION WIDTH 16.9 % (11.5-14.5); WHITE BLOOD COUNT 6.9 X10'3 (4.5-11.0)
[2018-08-31] MEDS ORDERED: predniSONE 20 mg tablet PO ONE (03:50)
[2018-08-31] MEDS ORDERED: PRED20TA PO (03:53)
[2018-08-31] MEDS ORDERED: AZIT250T PO (03:53)
[2018-08-31 04:09] VITALS: BP 140/63
== END 2018-08-31 04:15 | disposition home or self-care (01) ==
LOC: ER 00:31
DX: J44.1 Chronic obstructive pulmonary disease with (acute) exacerbation (principal); I25.10 Atherosclerotic heart disease of native coronary artery without angina pectoris; I13.0 Hypertensive heart and chronic kidney disease with heart failure and stage 1 through stage 4 chronic kidney disease, or unspecified chronic kidney disease; E11.22 Type 2 diabetes mellitus with diabetic chronic kidney disease; N18.9 Chronic kidney disease, unspecified; I50.9 Heart failure, unspecified; G89.29 Other chronic pain; F32.9 Major depressive disorder, single episode, unspecified; Z95.5 Presence of coronary angioplasty implant and graft; Z98.51 Tubal ligation status; Z90.49 Acquired absence of other specified parts of digestive tract; Z56.0 Unemployment, unspecified; Z98.890 Other specified postprocedural states; Z88.3 Allergy status to other anti-infective agents; Z79.82 Long term (current) use of aspirin; Z79.899 Other long term (current) drug therapy; Z79.4 Long term (current) use of insulin; Z99.81 Dependence on supplemental oxygen
CPT/HCPCS: 36415; 71045; 80053; 85025; 93005; 94640; 94760; 99284; J7512

== ENCOUNTER 2018-09-25 12:53 | Emergency (ER) | payer MEDICARE ==
[~2018-09-25] VITALS: Ht 172.7 cm; Wt 90.0 kg
[~2018-09-25 12:53] MED LIST changes: +AZIT250T PO
[2018-09-25 13:18] VITALS: BP 142/68
[2018-09-25] MEDS ORDERED: HYDROcodone/acetaminophen 10/325mg tab PO ONE (13:30)
[2018-09-25 13:50] LABS: BASOPHILS % (AUTO) 0.5 % (0-1); EOSINOPHILS % (AUTO) 0.4 % (0-6); HEMATOCRIT 31.5 % (35.0-45.0); HEMOGLOBIN 9.7 g/dl (12.0-16.0); LYMPHOCYTES # (AUTO) 0.4 X10'3 (1.1-4.8); LYMPHOCYTES % (AUTO) 4.4 % (21-51); MEAN CORPUSCULAR HEMOGLOBIN 30.4 PG (27.0-31.0); MEAN CORPUSCULAR HGB CONC 30.7 g/dL (33.0-36.5); MEAN PLATELET VOLUME 7.9 FL (7.4-10.4); MONOCYTES # (AUTO) 0.3 X10'3 (0-0.9); MONOCYTES % (AUTO) 3.1 % (2-12); NEUTROPHILS # (AUTO) 8.2 X10'3 (1.8-7.7); NEUTROPHILS % (AUTO) 91.6 % (42-75); PLATELET COUNT 244 X10'3 (140-440); RED BLOOD COUNT 3.18 X10'6 (4.20-5.60); RED CELL DISTRIBUTION WIDTH 18.8 % (11.5-14.5); WHITE BLOOD COUNT 8.9 X10'3 (4.5-11.0)
[2018-09-25 14:04] LABS: ALANINE AMINOTRANSFERASE 20 U/L (12-78); ALBUMIN 2.9 G/DL (3.4-5.0); ALBUMIN/GLOBULIN RATIO 0.6 (1.1-1.5); ALKALINE PHOSPHATASE 78 IU/L (46-116); ANION GAP 7 (8-16); ASPARTATE AMINO TRANSFERASE 18 U/L (10-37); BILIRUBIN,TOTAL 0.6 MG/DL (0.1-1.0); BLOOD UREA NITROGEN 51 MG/DL (7-18); BUN/CREATININE RATIO 14.1 (6.6-38.0); CALCIUM 8.4 MG/DL (8.5-10.1); CHLORIDE 102 MMOL/L (99-107); CREATININE 3.62 MG/DL (0.40-0.90); GLUCOSE 230 MG/DL (70-104); POTASSIUM 4.1 MMOL/L (3.5-5.1); SODIUM 141 MMOL/L (135-145); TOTAL CARBON DIOXIDE 31.6 MMOL/L (24-32); TOTAL PROTEIN 7.4 G/DL (6.4-8.2); eGFR 13 ML/MIN
[2018-09-25] MEDS ORDERED: azithromycin 250mg tablet PO ONE (14:05)
[2018-09-25] MEDS ORDERED: CefTRIAXone 1000mg IM Kit (w/lidocaine diluent) IM ONE (14:05)
[2018-09-25 14:12] LABS: MAGNESIUM 2.2 MG/DL (1.5-2.4)
[2018-09-25 14:36] LABS: ANISOCYTOSIS 2+; PLATELET ESTIMATE NORMAL
[2018-09-25 14:37] LABS: POLYCHROMASIA FEW; SCHISTOCYTES FEW; STOMATOCYTES 2+
[2018-09-25] MEDS ORDERED: AZIT-63 PO (15:19)
== END 2018-09-25 15:49 | disposition home or self-care (01) ==
LOC: ER 12:54
DX: J40 Bronchitis, not specified as acute or chronic (principal); J44.9 Chronic obstructive pulmonary disease, unspecified; I25.10 Atherosclerotic heart disease of native coronary artery without angina pectoris; I13.11 Hypertensive heart and chronic kidney disease without heart failure, with stage 5 chronic kidney disease, or end stage renal disease; E11.22 Type 2 diabetes mellitus with diabetic chronic kidney disease; N18.6 End stage renal disease; G89.29 Other chronic pain; F32.9 Major depressive disorder, single episode, unspecified; Z98.61 Coronary angioplasty status; Z86.14 Personal history of Methicillin resistant Staphylococcus aureus infection; Z99.2 Dependence on renal dialysis; Z90.49 Acquired absence of other specified parts of digestive tract; Z98.51 Tubal ligation status; Z98.890 Other specified postprocedural states; Z60.2 Problems related to living alone; Z56.0 Unemployment, unspecified; Z88.1 Allergy status to other antibiotic agents; Z88.5 Allergy status to narcotic agent; Z79.4 Long term (current) use of insulin; Z79.82 Long term (current) use of aspirin; Z79.899 Other long term (current) drug therapy
CPT/HCPCS: 36415; 71045; 80053; 83735; 83880; 84145; 84484; 85025; 93005; 96372; 99284; J0696

== ENCOUNTER 2018-11-22 17:03 | Emergency (ER) | payer MEDICARE ==
[~2018-11-22] VITALS: Ht 165.1 cm; Wt 87.3 kg
[~2018-11-22 17:03] MED LIST changes: -MELA3TAB PO; +MELA3TAB64 PO; -MIDO5TAB PO; +MIDO5TAB4 PO
[2018-11-22] MEDS ORDERED: ondansetron/PF 4mg/2ml inj IV ONE (18:05)
[2018-11-22] MEDS ORDERED: morphine 4 MG/ML inj SYRINge IV ONE (18:05)
[2018-11-22 18:08] LABS: BASOPHILS # (AUTO) 0.1 X10'3 (0-0.2); BASOPHILS % (AUTO) 1.2 % (0-1); EOSINOPHILS % (AUTO) 0.8 % (0-6); HEMATOCRIT 33.6 % (35.0-45.0); HEMOGLOBIN 10.5 g/dl (12.0-16.0); LYMPHOCYTES # (AUTO) 0.8 X10'3 (1.1-4.8); LYMPHOCYTES % (AUTO) 16.7 % (21-51); MEAN CORPUSCULAR HGB CONC 31.3 g/dL (33.0-36.5); MEAN CORPUSCULAR VOLUME 95.9 FL (78-98); MEAN PLATELET VOLUME 8.3 FL (7.4-10.4); MONOCYTES # (AUTO) 0.5 X10'3 (0-0.9); MONOCYTES % (AUTO) 9.7 % (2-12); NEUTROPHILS # (AUTO) 3.5 X10'3 (1.8-7.7); NEUTROPHILS % (AUTO) 71.6 % (42-75); PLATELET COUNT 266 X10'3 (140-440); RED BLOOD COUNT 3.51 X10'6 (4.20-5.60); RED CELL DISTRIBUTION WIDTH 17.2 % (11.5-14.5); WHITE BLOOD COUNT 4.9 X10'3 (4.5-11.0)
[2018-11-22 18:40] LABS: ALANINE AMINOTRANSFERASE 18 U/L (12-78); ALBUMIN 2.7 G/DL (3.4-5.0); ALBUMIN/GLOBULIN RATIO 0.6 (1.1-1.5); ALKALINE PHOSPHATASE 56 IU/L (46-116); AMYLASE 27 U/L (25-115); ANION GAP 6 (8-16); ASPARTATE AMINO TRANSFERASE 19 U/L (10-37); BILIRUBIN,TOTAL 0.3 MG/DL (0.1-1.0); BLOOD UREA NITROGEN 34 MG/DL (7-18); BUN/CREATININE RATIO 8.8 (6.6-38.0); CALCIUM 8.2 MG/DL (8.5-10.1); CHLORIDE 101 MMOL/L (99-107); CREATININE 3.87 MG/DL (0.40-0.90); GLUCOSE 185 MG/DL (70-104); LIPASE 122 U/L (73-393); POTASSIUM 5.1 MMOL/L (3.5-5.1); SODIUM 138 MMOL/L (135-145); TOTAL CARBON DIOXIDE 31.4 MMOL/L (24-32); TOTAL PROTEIN 7.5 G/DL (6.4-8.2); eGFR 12 ML/MIN
[2018-11-22 19:42] LABS: CLARITY,URINE CLOUDY (Clear); COLOR,URINE YELLOW (Yellow); GLUCOSE, URINE NEGATIVE (Neg); KETONES,URINE NEGATIVE (Neg); LEUKOCYTE ESTERASE ,URINE LARGE (Neg); NITRITES, URINE NEGATIVE (Neg); OCCULT BLOOD,URINE MODERATE (Neg); PROTEIN,URINE 100 mg/dl (Neg); UROBILINOGEN,URINE 0.2 E.U/dL (0.2-1.0)
[2018-11-22 19:55] LABS: UA COLLECTION TYPE CLN CATCH MIDSTREAM
[2018-11-22 19:56] LABS: BACTERIA,URINE FEW /HPF (Neg); RBC,URINE 0-2 /HPF (0-2); SQUAMOUS EPITHELIAL CELL,UR FEW /LPF (FEW); WBC CLUMPS,URINE MODERATE /HPF (NEGATIVE); WBC,URINE TNTC /HPF (0-4)
[2018-11-22 19:57] LABS: YEAST FEW /HPF (NEGATIVE)
[2018-11-22] MEDS ORDERED: normal saline 1000ml 1,000 ML IV ONE (20:05)
[2018-11-22] MEDS ORDERED: CefTRIAXone/D5W-Rocephin 1gm 50 ML IV ONE (20:05)
[2018-11-22] MEDS ORDERED: BISA-155 PO (20:08)
[2018-11-22] MEDS ORDERED: MAGN296S50 PO (20:08)
[2018-11-22] MEDS ORDERED: CEPH250T PO (20:08)
--- NOTE | 2018-11-22 20:27 | NUR ---
DR NUGENT IS AWARE PT LEFT PRIOR TO ANTIBIOTIC ADMINSTRATION, PT DOES HAVE PRESCRIPTION FOR ANTIBIOTIC
[2018-11-22 20:29] VITALS: BP 132/57
== END 2018-11-22 20:32 | disposition home or self-care (01) ==
LOC: ER 17:04
DX: N39.0 Urinary tract infection, site not specified (principal); K59.00 Constipation, unspecified; I25.10 Atherosclerotic heart disease of native coronary artery without angina pectoris; I13.2 Hypertensive heart and chronic kidney disease with heart failure and with stage 5 chronic kidney disease, or end stage renal disease; E11.22 Type 2 diabetes mellitus with diabetic chronic kidney disease; N18.6 End stage renal disease; I50.9 Heart failure, unspecified; J44.9 Chronic obstructive pulmonary disease, unspecified; G89.29 Other chronic pain; F32.9 Major depressive disorder, single episode, unspecified; Z99.2 Dependence on renal dialysis; Z86.14 Personal history of Methicillin resistant Staphylococcus aureus infection; Z98.61 Coronary angioplasty status; Z90.49 Acquired absence of other specified parts of digestive tract; Z98.51 Tubal ligation status; Z98.890 Other specified postprocedural states; Z56.0 Unemployment, unspecified
CPT/HCPCS: 36415; 80053; 81001; 82150; 82948; 83036; 83690; 85025; 85610; 87081; 87088; 96374; 96375; 99284; J2270; J2405

== ENCOUNTER 2019-02-06 01:54 | Inpatient (IN) | payer MEDICARE ==
[~2019-02-06] VITALS: Ht 165.1 cm; Wt 109.9 kg
[2019-02-06] VITALS (7 sets, daily range): BP systolic 102–167; BP diastolic 43–71
[~2019-02-06 01:54] MED LIST changes: -AZIT250T PO; +BISA-155 PO; +MAGN296S50 PO
[2019-02-06] MEDS ORDERED: ipratropium/albuterol 3ml nebule NEB ONE (02:05)
[2019-02-06] MEDS ORDERED: dexamethasone sod phosphate 10mg/ml inj IV STA (02:08)
[2019-02-06 02:19] LABS: BASOPHILS # (AUTO) 0.1 X10'3 (0-0.2); BASOPHILS % (AUTO) 0.7 % (0-1); EOSINOPHILS # (AUTO) 0.1 X10'3 (0-0.9); EOSINOPHILS % (AUTO) 0.9 % (0-6); HEMATOCRIT 32.1 % (35.0-45.0); HEMOGLOBIN 10.6 g/dl (12.0-16.0); LYMPHOCYTES # (AUTO) 0.8 X10'3 (1.1-4.8); LYMPHOCYTES % (AUTO) 9.2 % (21-51); MEAN CORPUSCULAR HGB CONC 32.9 g/dL (33.0-36.5); MEAN CORPUSCULAR VOLUME 100.3 FL (78-98); MEAN PLATELET VOLUME 8.4 FL (7.4-10.4); MONOCYTES # (AUTO) 0.5 X10'3 (0-0.9); MONOCYTES % (AUTO) 5.8 % (2-12); NEUTROPHILS # (AUTO) 7.3 X10'3 (1.8-7.7); NEUTROPHILS % (AUTO) 83.4 % (42-75); PLATELET COUNT 250 X10'3 (140-440); RED CELL DISTRIBUTION WIDTH 18.3 % (11.5-14.5); WHITE BLOOD COUNT 8.7 X10'3 (4.5-11.0)
--- NOTE | 2019-02-06 02:25 | NUR ---
PT SITTING ON THE SIDE OF THE BED, REPORTS SHE CAN BREATH BETTER THIS WAY. RT JUST FINISHED SVN. PT WITH STABLE VS. USING 2 LITERS O2 AND SATS 94%. DAUGHTER AT BEDSIDE. LABS DRAWN. GIVEN DECADRON.
[2019-02-06 02:36] LABS: ALANINE AMINOTRANSFERASE 18 U/L (12-78); ALBUMIN 3.1 G/DL (3.4-5.0); ALBUMIN/GLOBULIN RATIO 0.6 (1.1-1.5); ALKALINE PHOSPHATASE 64 IU/L (46-116); ANION GAP 13 (8-16); ASPARTATE AMINO TRANSFERASE 22 U/L (10-37); BILIRUBIN,TOTAL 0.5 MG/DL (0.1-1.0); BLOOD UREA NITROGEN 78 MG/DL (7-18); BUN/CREATININE RATIO 12.4 (6.6-38.0); CALCIUM 8.5 MG/DL (8.5-10.1); CHLORIDE 97 MMOL/L (99-107); CREATININE 6.27 MG/DL (0.40-0.90); GLUCOSE 229 MG/DL (70-104); POTASSIUM 4.8 MMOL/L (3.5-5.1); SODIUM 136 MMOL/L (135-145); TOTAL CARBON DIOXIDE 25.8 MMOL/L (24-32); TOTAL PROTEIN 8.3 G/DL (6.4-8.2); eGFR 7 ML/MIN
[2019-02-06] MEDS ORDERED: CefTRIAXone 2gm/D5W 50ml 50 ML IV ONE (02:40)
[2019-02-06] MEDS ORDERED: azithromycin 250mg tablet PO ONE (02:40)
[2019-02-06] MEDS ORDERED: aspirin 81mg tab.chew PO ONE (02:45)
--- NOTE | 2019-02-06 03:06 | NUR ---
awaiting hospitalist, trop 0.16. daughter remains at bedside. stable vs.
[2019-02-06] MEDS ORDERED: FOLI1CAP8 PO (03:17)
[2019-02-06] MEDS ORDERED: FLUT1BLS4 INH (03:17)
[2019-02-06] MEDS ORDERED: PRED5TAB PO (03:17)
[2019-02-06] MEDS ORDERED: ONDA4TAB11 PO (03:17)
[2019-02-06] MEDS ORDERED: glucagon, human recombinant 1mg kit SUBCUT PRN (04:10)
[2019-02-06] MEDS ORDERED: dextrose 50%-water 50ml dispensing syringe IV PRN ×2 (04:10)
[2019-02-06] MEDS ORDERED: acetaminophen 325mg tablet PO PRN ×2 (04:10)
[2019-02-06] MEDS ORDERED: MESSAGE TO PHARMACY PO ONE (04:10)
[2019-02-06] MEDS ORDERED: dextrose ORAL solution 15 GM/59 ML bottle PO PRN ×2 (04:10)
[2019-02-06] MEDS ORDERED: Melatonin 3mg tablet PO PRN (04:25)
[2019-02-06] MEDS ORDERED: [UNRECOGNIZED DRUG - REMARK] PO SCH (04:25)
[2019-02-06 04:50] LABS: PARTIAL THROMBOPLASTIN TIME 32 SECONDS (22-32)
[2019-02-06 04:56] LABS: MAGNESIUM 2.3 MG/DL (1.5-2.4); PHOSPHORUS 6.5 MG/DL (2.3-4.5)
--- NOTE | 2019-02-06 05:00 | NUR ---
Patient in room PCU 3012. I have received report from Radha PANDA (ER) and had the opportunity to ask questions and assume patient care. Patient arrived to PCU by fran and ambulated with assistance to her bed. Vital signs taken, telemetry placed. She is in pain but is stable. Will continue to monitor.
[2019-02-06] MEDS ORDERED: ondansetron 4mg rapidly disintigrating tab PO PRN (05:35)
--- NOTE | 2019-02-06 06:00 | NUR ---
Patient in room PCU 3012. I have received report from AMARILYS Quinonez and had the opportunity to ask questions and assume patient care.
[2019-02-06 06:07] LABS: CLARITY,URINE CLOUDY (Clear); COLOR,URINE YELLOW (Yellow); GLUCOSE, URINE 100 mg/dl (Neg); KETONES,URINE TRACE mg/dl (Neg); LEUKOCYTE ESTERASE ,URINE SMALL (Neg); NITRITES, URINE NEGATIVE (Neg); OCCULT BLOOD,URINE MODERATE (Neg); PH,URINE 5.5 (4.8-8.0); PROTEIN,URINE 100 mg/dl (Neg); UROBILINOGEN,URINE 0.2 E.U/dL (0.2-1.0)
[2019-02-06 06:12] LABS: UA COLLECTION TYPE OTHER
[2019-02-06 06:13] LABS: BACTERIA,URINE 3+ /HPF (Neg); SQUAMOUS EPITHELIAL CELL,UR MODERATE /LPF (FEW)
[2019-02-06 06:14] LABS: FINE GRANULAR CAST 0-3 /LPF (NEGATIVE); MUCUS STRANDS NONE SEEN /LPF (Neg)
[2019-02-06] MEDS ORDERED: albuterol 2.5 MG/3 ML nebule NEB PRN (06:35)
--- NOTE | 2019-02-06 06:41 | NUR ---
Problems reprioritized. Patient report given, questions answered & plan of care reviewed with Safia PANDA.
[2019-02-06] MEDS: pantoprazole 40mg Tablet.DR PO SCH (07:35)
[2019-02-06] MEDS: furosemide 40mg tablet PO SCH (07:36)
[2019-02-06] MEDS: lactobacillus rhamnosus 10,000 MMU CELLS/CAPSULE PO SCH ×2 (07:37→20:26)
[2019-02-06] MEDS: clopidogrel 75mg tablet PO SCH (07:37)
[2019-02-06] MEDS: sertraline 50mg tablet PO SCH (07:38)
[2019-02-06] MEDS: docusate sod 100mg capsule PO SCH ×2 (07:38→20:27)
[2019-02-06] MEDS: metoprolol succinate 25mg (24-HOUR) SR. Tablet PO SCH (07:39)
[2019-02-06] MEDS: aspirin 325mg tablet PO SCH (07:39)
[2019-02-06] MEDS: heparin, porcine 5000 units/ml vial SQ SCH ×2 (07:39→20:28)
[2019-02-06] MEDS: calcium acetate 667mg (PhosLO) capsule PO SCH ×3 (07:40→21:09)
[2019-02-06] MEDS: predniSONE 5mg tablet PO SCH ×2 (07:40→20:26)
[2019-02-06] MEDS: cyanocobalamin 500mcg tablet PO SCH (07:40)
[2019-02-06] MEDS: folic acid/vitamin B complex w/vitamin C 0.8mg tablet PO SCH (07:40)
[2019-02-06] MEDS: CefTRIAXone 2gm/D5W 50ml 50 ML IV SCH (07:42)
[2019-02-06] MEDS: amLODIPine 5mg tablet PO SCH (08:00)
[2019-02-06] MEDS ORDERED: albuterol 2.5 MG/3 ML nebule NEB SCH (08:00)
[2019-02-06] MEDS ORDERED: docusate sod 100mg capsule PO SCH (08:00)
[2019-02-06] MEDS ORDERED: gabapentin 300mg capsule PO SCH ×2 (08:00→21:00)
[2019-02-06] MEDS: insulin Lispro (HumaLOG) vial - multi-dose SQ SCH ×2 (08:14→18:51)
[2019-02-06] MEDS: fenofibrate 145mg tablet PO SCH (08:30)
[2019-02-06] MEDS: budesonide 0.5mg/2ml UD nebule IH SCH ×2 (09:37→20:45)
[2019-02-06] MEDS: ipratropium/albuterol 3ml nebule NEB SCH ×3 (09:38→20:45)
[2019-02-06] MEDS ORDERED: normal saline 1000ml 250 ML IV PRN (09:43)
[2019-02-06] MEDS ORDERED: heparin 1,000unit/ml 10ml vial 10 ML IV ONE ×2 (09:43→11:38)
[2019-02-06] MEDS ORDERED: epoetin 20,000 units/ml inj IV ONE (09:45)
[2019-02-06] MEDS ORDERED: heparin 1,000 units/ml 10ml inj HE ONE ×4 (09:50→11:45)
[2019-02-06] MEDS ORDERED: LIDOcaine 1% (10mg/ml) 2ml vial SQ ONE (10:50)
[2019-02-06 11:06] LABS: HEMOGLOBIN A1C 8.3 % (4.5-6.2)
[2019-02-06] MEDS ORDERED: midodrine 5mg tablet PO ONE (13:15)
--- NOTE | 2019-02-06 15:07 | NUR ---
DM consult: Pt with A1c 8.3 seen at bedside while receiving HD. Pt reports she takes her DM medications per rx and checks her BG levels BID q morning and HS with resulting numbers 170-180. Pt reports she believes her biggest difficulty with managing her DM is that she likes to eat a lot in the evening before bed. RD reviewed appropriate options. Pt provided with written and verbal DM education with referral to outpatient DM class and RD contact information. Pt endorses a good appetite which is evident with documented 100% PO intake on renal diet. Pt agrees to double eggs QD at breakfast and double meat TID for satiety and increased protein needs to meet the demands of HD. D/w RN recommendation for the addition of the CHO controlled diet. Pt reports difficulty chewing and swallowing and states that sometimes food gets stuck in throat, RD consulted ST for BSS. Pt agrees to chop all in the mean time. Pt reports LBM was a couple of days ago and agrees to power pudding with dinner tonight. All food preferences/requests d/w dietary. Will continue to follow. Addendum: 02/06/19 at [address] Amended: Links added.
[2019-02-06] MEDS: sevelamer carbonate 800mg tablet PO SCH ×3 (16:36→20:27)
[2019-02-06] MEDS: OMEGA-3/DHA/EPA/FISH OIL 1 EACH CAPSULE.DR PO SCH (16:36)
--- NOTE | 2019-02-06 16:38 | NUR ---
Pt had bedside hemodialysis and skipped lunch, all meds were held BP r/t HD and phos lo r/t no meal.
--- NOTE | 2019-02-06 17:43 | NUR ---
pt has a >10 beat run of Vtach @ 1090. She was in no distress and was unaware. Dr Emmanuel notified no new orders
--- NOTE | 2019-02-06 18:21 | NUR ---
Problems reprioritized. Patient report given, questions answered & plan of care reviewed with AMARILYS Nino.
--- NOTE | 2019-02-06 18:21 | NUR ---
Patient in room PCU 3012C. I have received report from AMARILYS Harkins and had the opportunity to ask questions and assume patient care. Pt is alert and oriented X4, denies CP, SOB, dizziness, SPO2 96% in 3 L via NC. Pt rated pain 0/10, accucheck level II
[2019-02-06] MEDS ORDERED: LEVO200T8 PO (19:22)
[2019-02-06] MEDS: ondansetron/PF 4mg/2ml inj IV PRN (20:29)
[2019-02-06] MEDS ORDERED: insulin glargine (Lantus) pen - multi-dose SQ SCH (21:00)
--- NOTE | 2019-02-06 22:09 | NUR ---
per lantus dose orders state a give of 15 units. there is a note that states give half if gfr below 30 for initial dose. pt receives 15units of lantus at [facility] at home. per conversation with charge nurse we have determined that this note is something that pharmacy added on per normal protocol. but because this is a give dose that is off protocol we should give the full 15units that is ordered.
--- NOTE | 2019-02-07 01:06 | NUR ---
PAGER ID: [phone] MESSAGE: Patient Violet Bradley Room # [id number]. Pt had hemodialysis today and she rated pain 10/10, and she has only Tylenol prescribed. She has no allergies and takes "holistic" med at home. Thank you, Trung
[2019-02-07] MEDS: HYDROcodone/acetaminophen 5mg/325mg tablet PO PRN ×2 (01:19→11:57)
[2019-02-07 02:00] VITALS: BP 107/40
[2019-02-07 05:17] LABS: MONOCYTES # (AUTO) 0.4 X10'3 (0-0.9); RED BLOOD COUNT 2.92 X10'6 (4.20-5.60); WHITE BLOOD COUNT 5.7 X10'3 (4.5-11.0)
[2019-02-07 05:19] LABS: BASOPHILS % (AUTO) 0.6 % (0-1); EOSINOPHILS # (AUTO) 0.1 X10'3 (0-0.9); EOSINOPHILS % (AUTO) 1.2 % (0-6); HEMATOCRIT 29.6 % (35.0-45.0); HEMOGLOBIN 9.5 g/dl (12.0-16.0); LYMPHOCYTES # (AUTO) 0.7 X10'3 (1.1-4.8); LYMPHOCYTES % (AUTO) 13.1 % (21-51); MEAN CORPUSCULAR HEMOGLOBIN 32.6 PG (27.0-31.0); MEAN CORPUSCULAR HGB CONC 32.3 g/dL (33.0-36.5); MEAN CORPUSCULAR VOLUME 101.2 FL (78-98); MEAN PLATELET VOLUME 8.2 FL (7.4-10.4); MONOCYTES % (AUTO) 6.4 % (2-12); NEUTROPHILS # (AUTO) 4.5 X10'3 (1.8-7.7); NEUTROPHILS % (AUTO) 78.7 % (42-75); PLATELET COUNT 232 X10'3 (140-440)
[2019-02-07 05:23] LABS: ANION GAP 7 (8-16); BLOOD UREA NITROGEN 48 MG/DL (7-18); BUN/CREATININE RATIO 12.2 (6.6-38.0); CHLORIDE 98 MMOL/L (99-107); CREATININE 3.95 MG/DL (0.40-0.90); GLUCOSE 192 MG/DL (70-104); POTASSIUM 4.7 MMOL/L (3.5-5.1); SODIUM 135 MMOL/L (135-145); TOTAL CARBON DIOXIDE 29.7 MMOL/L (24-32)
[2019-02-07 05:24] LABS: ALANINE AMINOTRANSFERASE 20 U/L (12-78); ALBUMIN 2.7 G/DL (3.4-5.0); ALBUMIN/GLOBULIN RATIO 0.6 (1.1-1.5); ALKALINE PHOSPHATASE 52 IU/L (46-116); ASPARTATE AMINO TRANSFERASE 23 U/L (10-37); BILIRUBIN,TOTAL 0.3 MG/DL (0.1-1.0); CALCIUM 8.8 MG/DL (8.5-10.1); PHOSPHORUS 5.6 MG/DL (2.3-4.5); TOTAL PROTEIN 7.5 G/DL (6.4-8.2); eGFR 12 ML/MIN
[2019-02-07 06:00] VITALS: BP 120/52
[2019-02-07 06:00] LABS: PARTIAL THROMBOPLASTIN TIME 31 SECONDS (22-32)
--- NOTE | 2019-02-07 06:38 | NUR ---
Problems reprioritized. Patient report given, questions answered & plan of care reviewed with AMARILYS Edwards. Patient stable at shift change
--- NOTE | 2019-02-07 06:44 | NUR ---
Patient in room PCU 3012. I have received report from AMARILYS Nino and had the opportunity to ask questions and assume patient care.
[2019-02-07] MEDS: aspirin 325mg tablet PO SCH (07:44)
[2019-02-07] MEDS: fenofibrate 145mg tablet PO SCH (07:44)
[2019-02-07] MEDS: sertraline 50mg tablet PO SCH (07:44)
[2019-02-07] MEDS: folic acid/vitamin B complex w/vitamin C 0.8mg tablet PO SCH (07:44)
[2019-02-07] MEDS: sevelamer carbonate 800mg tablet PO SCH ×2 (07:44→13:27)
[2019-02-07] MEDS: metoprolol succinate 25mg (24-HOUR) SR. Tablet PO SCH (07:45)
[2019-02-07] MEDS: pantoprazole 40mg Tablet.DR PO SCH (07:45)
[2019-02-07] MEDS: amLODIPine 5mg tablet PO SCH (07:45)
[2019-02-07] MEDS: lactobacillus rhamnosus 10,000 MMU CELLS/CAPSULE PO SCH (07:45)
[2019-02-07] MEDS: clopidogrel 75mg tablet PO SCH (07:45)
[2019-02-07] MEDS: docusate sod 100mg capsule PO SCH (07:45)
[2019-02-07] MEDS: furosemide 40mg tablet PO SCH (07:45)
[2019-02-07] MEDS: calcium acetate 667mg (PhosLO) capsule PO SCH ×2 (07:46→13:02)
[2019-02-07] MEDS: predniSONE 5mg tablet PO SCH (07:46)
[2019-02-07] MEDS: cyanocobalamin 500mcg tablet PO SCH (07:46)
[2019-02-07] MEDS: heparin, porcine 5000 units/ml vial SQ SCH (07:56)
[2019-02-07] MEDS: CefTRIAXone 2gm/D5W 50ml 50 ML IV SCH (07:58)
[2019-02-07] MEDS ORDERED: azithromycin/NS 500mg/250ml 250 ML IV SCH (08:00)
[2019-02-07] MEDS: budesonide 0.5mg/2ml UD nebule IH SCH (08:33)
[2019-02-07] MEDS: ipratropium/albuterol 3ml nebule NEB SCH (08:33)
[2019-02-07] MEDS: insulin Lispro (HumaLOG) vial - multi-dose SQ SCH ×2 (08:56→13:31)
[2019-02-07] MEDS: ondansetron/PF 4mg/2ml inj IV PRN (09:03)
[2019-02-07 11:00] VITALS: BP 128/53
--- NOTE | 2019-02-07 12:00 | NUR ---
Assessed pt's FSBG, critically low at 38, pt denies complaint. Rechecked FSBG on another finger, remains critically low at 38. Pt states that she has never experienced symptoms with low blood sugar before, denies changes in mentation, nausea, etc. Primary RN Jerry notified. Dextrose given IV per MD order. Pt tolerated. FSBG reassessed at 1215, 138. Pt eating lunch at this time.
[2019-02-07] MEDS ORDERED: LEVO500T2 PO (12:36)
[2019-02-07] MEDS ORDERED: FURO80TA87 PO (12:36)
[2019-02-07] MEDS: OMEGA-3/DHA/EPA/FISH OIL 1 EACH CAPSULE.DR PO SCH (13:02)
--- NOTE | 2019-02-07 16:39 | NUR ---
Discharged PIV out and tele off. Signed all papers. Meds called into [facility] in [place] Educated on meds, DM survival skills, renal failure and COPD ex. Left with all belongings.
== END 2019-02-07 13:58 | disposition home or self-care (01) | DRG 189 ==
LOC: ER 01:55 → ED HOLD 04:37 → PCU 3S 04:58
PROVIDERS: ATTEND Internal Medicine Critical Care Medicine
PROC: 5A1D70Z Performance of Urinary Filtration, Intermittent, Less than 6 Hours Per Day (ICD-10-PCS; principal; 2019-02-06)
DX: J96.21 Acute and chronic respiratory failure with hypoxia (principal); N18.6 End stage renal disease; I13.2 Hypertensive heart and chronic kidney disease with heart failure and with stage 5 chronic kidney disease, or end stage renal disease; J44.1 Chronic obstructive pulmonary disease with (acute) exacerbation; J44.0 Chronic obstructive pulmonary disease with (acute) lower respiratory infection; E87.70 Fluid overload, unspecified; J20.9 Acute bronchitis, unspecified; E11.40 Type 2 diabetes mellitus with diabetic neuropathy, unspecified; E11.22 Type 2 diabetes mellitus with diabetic chronic kidney disease; E78.5 Hyperlipidemia, unspecified; F32.9 Major depressive disorder, single episode, unspecified; F41.9 Anxiety disorder, unspecified; I25.10 Atherosclerotic heart disease of native coronary artery without angina pectoris; I50.9 Heart failure, unspecified; G89.29 Other chronic pain; Z60.2 Problems related to living alone; Z79.4 Long term (current) use of insulin; Z79.51 Long term (current) use of inhaled steroids; Z79.82 Long term (current) use of aspirin; Z79.890 Hormone replacement therapy; Z82.49 Family history of ischemic heart disease and other diseases of the circulatory system; Z83.3 Family history of diabetes mellitus; Z85.850 Personal history of malignant neoplasm of thyroid; Z87.891 Personal history of nicotine dependence; Z95.5 Presence of coronary angioplasty implant and graft; Z99.2 Dependence on renal dialysis; Z88.8 Allergy status to other drugs, medicaments and biological substances; Z90.49 Acquired absence of other specified parts of digestive tract; Z98.51 Tubal ligation status; Z79.899 Other long term (current) drug therapy
CPT/HCPCS: 36415; 71045; 80053; 81001; 82948; 83036; 83605; 83735; 83880; 84100; 84145; 84484; 85025; 85610; 85730; 87040; 87070; 87077; 87088; 87186; 93005; 94640; 94760; 96365; 96375; 97110; 97116; 97162; 99291; G0257; G0378; J0456; J0696; J1100; J1644; J1815; J2001; J2405; J7512; J7626; J8597; Q4081

== ENCOUNTER 2019-03-04 12:49 | Inpatient (IN) | payer MEDICARE, OTHER ==
[2019-03-04] VITALS (7 sets, daily range): BP systolic 91–149; BP diastolic 55–77
[~2019-03-04] VITALS: Ht 165.1 cm; Wt 98.4 kg
[~2019-03-04 12:49] MED LIST changes: -BISA-155 PO; -BUDE10.2 INH; +FLUT1BLS4 INH; -FURO40TA4 PO; +FURO80TA87 PO; +LEVO200T8 PO; -LEVO50TA8 PO; -MAGN296S50 PO; +ONDA4TAB11 PO; +PRED5TAB PO
[2019-03-04] MEDS ORDERED: predniSONE 20 mg tablet PO ONE (13:30)
[2019-03-04] MEDS ORDERED: ipratropium/albuterol 3ml nebule NEB ONE (13:30)
[2019-03-04 13:46] LABS: BASOPHILS % (AUTO) 0.5 % (0-1); EOSINOPHILS # (AUTO) 0.1 X10'3 (0-0.9); EOSINOPHILS % (AUTO) 0.6 % (0-6); HEMATOCRIT 31.7 % (35.0-45.0); HEMOGLOBIN 10.2 g/dl (12.0-16.0); LYMPHOCYTES # (AUTO) 1.1 X10'3 (1.1-4.8); LYMPHOCYTES % (AUTO) 10.4 % (21-51); MEAN CORPUSCULAR HEMOGLOBIN 33.4 PG (27.0-31.0); MEAN CORPUSCULAR VOLUME 104.5 FL (78-98); MEAN PLATELET VOLUME 8.2 FL (7.4-10.4); MONOCYTES # (AUTO) 0.5 X10'3 (0-0.9); MONOCYTES % (AUTO) 4.4 % (2-12); NEUTROPHILS % (AUTO) 84.1 % (42-75); PLATELET COUNT 238 X10'3 (140-440); RED BLOOD COUNT 3.04 X10'6 (4.20-5.60); RED CELL DISTRIBUTION WIDTH 17.3 % (11.5-14.5); WHITE BLOOD COUNT 10.7 X10'3 (4.5-11.0)
[2019-03-04 14:03] LABS: ALANINE AMINOTRANSFERASE 22 U/L (12-78); ALBUMIN 3.4 G/DL (3.4-5.0); ALBUMIN/GLOBULIN RATIO 0.7 (1.1-1.5); ALKALINE PHOSPHATASE 61 IU/L (46-116); ANION GAP 12 (8-16); ASPARTATE AMINO TRANSFERASE 30 U/L (10-37); BILIRUBIN,TOTAL 0.4 MG/DL (0.1-1.0); BLOOD UREA NITROGEN 74 MG/DL (7-18); BUN/CREATININE RATIO 10.7 (6.6-38.0); CALCIUM 8.3 MG/DL (8.5-10.1); CHLORIDE 98 MMOL/L (99-107); CREATININE 6.94 MG/DL (0.40-0.90); GLUCOSE 197 MG/DL (70-104); POTASSIUM 5.2 MMOL/L (3.5-5.1); SODIUM 139 MMOL/L (135-145); TOTAL CARBON DIOXIDE 29.3 MMOL/L (24-32); TOTAL PROTEIN 8.6 G/DL (6.4-8.2); eGFR 6 ML/MIN
[2019-03-04 14:11] LABS: TROPONIN I 3.58 NG/ML (0.0-0.05)
[2019-03-04] MEDS ORDERED: aspirin 81mg tab.chew PO ONE (14:20)
[2019-03-04] MEDS: nitroGLYCERIN 0.4mg SUBLingual tab SL PRN ×3 (14:36→15:33)
--- NOTE | 2019-03-04 14:37 | NUR ---
PT HAS A PORT RIGHT CHEST FOR DIALYSIS. FISTULA NOT WORKING LEFT UPPER ARM.
--- NOTE | 2019-03-04 14:52 | NUR ---
PT STATES, FEELING MUCH BETTER STATES PAIN NOW IS A 2.
--- NOTE | 2019-03-04 15:33 | NUR ---
PT C/O CHEST PAIN ON SCALE 5/10. NTG 0.4MG SL GIVEN
--- NOTE | 2019-03-04 15:47 | NUR ---
PT STATES PAIN NOW ABOUT A 2/10. SITTING UP AT BEDSIDE, POSITION OF COMFORT. DIFFICULTIES LAYING FLAT, FEELS LIKE IM SUFFOCATING.
[2019-03-04] MEDS ORDERED: nitroGLYCERIN-Tridil 50MG/D5W 250 ML IV PRN (16:35)
[2019-03-04] MEDS ORDERED: heparin 10,000 units/1 ML INJ IV ONE (16:50)
--- NOTE | 2019-03-04 17:02 | NUR ---
LAB CALLED TROPONIN 4.[address] MCALLISTER.
[2019-03-04] MEDS ORDERED: acetaminophen 325mg tablet PO PRN ×2 (17:15)
[2019-03-04] MEDS ORDERED: potassium Cl 20 mEq SR tablet PO PRN ×2 (17:15)
--- NOTE | 2019-03-04 17:55 | NUR ---
NTG STOPPED FOR APPROX 10 MINUTES WHILE LAB ATTEMPTED BLOOD DRAW
[2019-03-04 18:18] LABS: PARTIAL THROMBOPLASTIN TIME 27 SECONDS (22-32)
[2019-03-04] MEDS: K, MAG and/or Phos replacement - Verify level? MC SCH (19:00)
[2019-03-04] MEDS: ondansetron/PF 4mg/2ml inj IV PRN (19:00)
[2019-03-04] MEDS: heparin 10,000 units/1 ML INJ IV PRN (19:20)
[2019-03-04] MEDS: heparin 25,000 UNIT/250ml bag 250 ML IV SCH (19:22)
[2019-03-04] MEDS: albuterol 2.5 MG/3 ML nebule NEB PRN (19:24)
[2019-03-04] MEDS ORDERED: normal saline 1000ml 250 ML IV PRN (20:25)
[2019-03-04] MEDS ORDERED: albumin (human) 25% 100ml IV 100 ML IV PRN (20:25)
[2019-03-04] MEDS ORDERED: epoetin 20,000 units/ml inj IV ONE (20:25)
[2019-03-04] MEDS ORDERED: heparin 1,000 units/ml 10ml inj HE ONE ×2 (20:30)
--- NOTE | 2019-03-04 20:58 | NUR ---
Late entry:1843:Patient here from ER into room CICU 2012. I have received report from Padmini PANDA and had the opportunity to ask questions and assume patient care. Pt sitting up at 90 degrees on gurney, Sats 88% on on NRB mask, complaining of shortness of breath and chest pain, agitated, restless, lungs sounds coarse. Titrating nitro to per protocol. 22 G PIV in R hand occluded, Nitro infusing through 22G PIV. Attempting to establish 2nd PIV. 1904: Francisco updated, orders received, Titrating Nitro per protocol, Heparin bolus and drip started per cardiac protocol. 2nd peripheral PIV obtained in R FA. Placed on Bipap@ 100% by RT after breathing treatment completed. 2057: typesetters printer at bedside. Pt tolerating Bipap, states shortness of breath and chest pain decreased, sats 100% on 100%, will titrate as tolerated. Able to titrate Nitro down as tolerated as well. Will continue to monitor.
[2019-03-04] MEDS ORDERED: albumin (human) 25% 100ml IV 100 ML IV ONE (22:33)
[2019-03-04] MEDS ORDERED: albumin (human) 25% 100 ML IV solution IV ONE (22:35)
[2019-03-04] MEDS ORDERED: MESSAGE TO PHARMACY PO ONE (22:35)
[2019-03-04] MEDS ORDERED: glucagon, human recombinant 1mg kit SUBCUT PRN (22:35)
[2019-03-04] MEDS ORDERED: dextrose 50%-water 50ml dispensing syringe IV PRN ×2 (22:35)
[2019-03-04] MEDS ORDERED: dextrose ORAL solution 15 GM/59 ML bottle PO PRN (22:35)
--- NOTE | 2019-03-04 22:35 | NUR ---
Albumin 25% 100mL given by dialysis for hypotension.
[2019-03-04 22:51] LABS: ABG BASE EXCESS -1.4 mmol/L (-2.0-3.0); ABG OXYGEN SATURATION 99.2 % (95-98); ABG PCO2 (T) 47.8 mmHg (35.0-45.0); ABG PH (T) 7.332 (7.350-7.450); ABG PO2 (T) 319.1 mmHg (83-108); ALLEN'S TEST Positive; FCOHb 0.3 % (0.5-1.5); FMetHb 0.3 % (0.3-1.12); FO2Hb 98.6 % (94-100); PATIENT TEMPERATURE 36.1; RESPIRATORY RATE (OBSERVED) 20 b/min; TOTAL HEMOGLOBIN 10.4 G/dl (12.0-16.0)
[2019-03-04] MEDS ORDERED: VANCOMYCIN 1gm/H2O 200ml PB 200 ML IV ONE (23:35)
[2019-03-04] MEDS ORDERED: CefTRIAXone 2gm/D5W 50ml 50 ML IV SCH (23:40)
[2019-03-05] VITALS (22 sets, daily range): BP systolic 75–140; BP diastolic 32–79
[2019-03-05] MEDS: pantoprazole 40 MG vial IV SCH ×2 (00:11→07:04)
--- NOTE | 2019-03-05 02:11 | NUR ---
Dialysis completed. TDC accessed for IV medication infusion per MD order. Pt tolerating Bipap. Vital signs stable at this time.
[2019-03-05 02:19] LABS: BASOPHILS % (AUTO) 0.1 % (0-1); EOSINOPHILS % (AUTO) 0.1 % (0-6); HEMATOCRIT 28.8 % (35.0-45.0); HEMOGLOBIN 9.6 g/dl (12.0-16.0); LYMPHOCYTES # (AUTO) 0.3 X10'3 (1.1-4.8); LYMPHOCYTES % (AUTO) 3.4 % (21-51); MEAN CORPUSCULAR HGB CONC 33.4 g/dL (33.0-36.5); MEAN CORPUSCULAR VOLUME 101.9 FL (78-98); MONOCYTES # (AUTO) 0.1 X10'3 (0-0.9); NEUTROPHILS # (AUTO) 8.2 X10'3 (1.8-7.7); NEUTROPHILS % (AUTO) 95.4 % (42-75); PLATELET COUNT 232 X10'3 (140-440); RED BLOOD COUNT 2.82 X10'6 (4.20-5.60); RED CELL DISTRIBUTION WIDTH 17.2 % (11.5-14.5); WHITE BLOOD COUNT 8.6 X10'3 (4.5-11.0)
[2019-03-05 02:22] LABS: ALANINE AMINOTRANSFERASE 26 U/L (12-78); ALBUMIN 3.7 G/DL (3.4-5.0); ALBUMIN/GLOBULIN RATIO 0.7 (1.1-1.5); ALKALINE PHOSPHATASE 58 IU/L (46-116); ANION GAP 10 (8-16); ASPARTATE AMINO TRANSFERASE 56 U/L (10-37); BILIRUBIN,TOTAL 0.6 MG/DL (0.1-1.0); BLOOD UREA NITROGEN 23 MG/DL (7-18); BUN/CREATININE RATIO 8.4 (6.6-38.0); CALCIUM 8.2 MG/DL (8.5-10.1); CHLORIDE 98 MMOL/L (99-107); CREATININE 2.75 MG/DL (0.40-0.90); GLUCOSE 141 MG/DL (70-104); MAGNESIUM 2.1 MG/DL (1.5-2.4); PHOSPHORUS 3.5 MG/DL (2.3-4.5); POTASSIUM 3.7 MMOL/L (3.5-5.1); SODIUM 137 MMOL/L (135-145); TOTAL CARBON DIOXIDE 29.2 MMOL/L (24-32); TOTAL PROTEIN 8.7 G/DL (6.4-8.2); eGFR 18 ML/MIN
[2019-03-05] MEDS ORDERED: cyclobenzaprine 10mg tablet PO PRN (02:40)
[2019-03-05] MEDS: morphine 2 MG/ML inj. syringe IV PRN ×7 (03:03→21:43)
[2019-03-05] MEDS: piperacillin/tazo 4.5gm/100ml 50 ML IV SCH ×2 (03:03→15:08)
[2019-03-05] MEDS: heparin 10,000 units/1 ML INJ IV PRN (03:13)
[2019-03-05] MEDS: heparin 25,000 UNIT/250ml bag 250 ML IV SCH (03:15)
[2019-03-05] MEDS: ipratropium/albuterol 3ml nebule NEB SCH ×4 (03:58→15:08)
[2019-03-05 05:55] LABS: TROPONIN I 12.29 NG/ML (0.0-0.05)
--- NOTE | 2019-03-05 06:33 | NUR ---
Problems reprioritized. Patient report given, questions answered & plan of care reviewed with Ann PANDA.
--- NOTE | 2019-03-05 06:39 | NUR ---
Patient in room CICU 2013. I have received report from AMARILYS Coyne and had the opportunity to ask questions and assume patient care.
[2019-03-05] MEDS: AZITHROMYCIN 500 MG in NS 250ml IV.SOLN IV SCH (07:05)
[2019-03-05] MEDS: K, MAG and/or Phos replacement - Verify level? MC SCH (08:00)
[2019-03-05] MEDS ORDERED: epoetin 20,000 units/ml inj IV ONE (08:00)
[2019-03-05] MEDS ORDERED: heparin 1,000 units/ml 10ml inj HE ONE ×4 (08:00→14:35)
[2019-03-05] MEDS ORDERED: albumin (human) 25% 100ml IV 100 ML IV PRN (08:00)
[2019-03-05] MEDS ORDERED: LIDOcaine 1% (10mg/ml) 2ml vial SQ ONE (08:00)
[2019-03-05] MEDS ORDERED: normal saline 1000ml 250 ML IV PRN (08:00)
[2019-03-05] MEDS: lactobacillus rhamnosus 10,000 MMU CELLS/CAPSULE PO SCH ×2 (09:19→20:40)
[2019-03-05] MEDS ORDERED: albumin (human) 25% 100 ML IV solution IV ONE (11:35)
[2019-03-05] MEDS: ondansetron/PF 4mg/2ml inj IV PRN ×2 (11:44→20:50)
[2019-03-05] MEDS ORDERED: LIDOcaine 1% (10mg/ml)w/preservative injection 20ml MDV ONE (12:44)
[2019-03-05] MEDS ORDERED: fentaNYL/PF 50MCG/1 ML 2ML syringe ONE (12:44)
[2019-03-05] MEDS ORDERED: midazolam 2 mg/2 ml injection ONE (12:44)
[2019-03-05] MEDS ORDERED: iohexol 350 MG/ML 50ML vial IV ONE (12:45)
[2019-03-05] MEDS ORDERED: iohexol 350 MG/1 ML 200ml bottle ONE (12:45)
[2019-03-05] MEDS ORDERED: heparin 1,000unit/ml 10ml vial 10 ML ONE (12:45)
--- NOTE | 2019-03-05 12:45 | NUR ---
Pt taken to brine room laborer emergently. Increasing chest pain (latest trop 13.27), decreasing BP 70s/40s despite turning nitro off and administering 25% albumin. Midline placed by AMARILYS Arenas. Consent signed, site prepped. Pt oriented and aware of events taking place
[2019-03-05] MEDS ORDERED: clopidogrel 300mg tablet ONE (14:15)
--- NOTE | 2019-03-05 14:28 | NUR ---
Received report from syrup machine laborer RNArmin
[2019-03-05] MEDS ORDERED: normal saline 1000ml 1,000 ML IV SCH (15:35)
[2019-03-05] MEDS ORDERED: HYDROcodone/acetaminophen 5mg/325mg tablet PO PRN (15:35)
[2019-03-05] MEDS ORDERED: pantoprazole 40 MG vial IV ONE (15:35)
[2019-03-05] MEDS ORDERED: [UNRECOGNIZED DRUG - REMARK] PO SCH (15:50)
[2019-03-05] MEDS ORDERED: nitroGLYCERIN 0.4mg SUBLingual tab SL PRN (15:50)
[2019-03-05] MEDS ORDERED: glucagon, human recombinant 1mg kit IM PRN (15:50)
[2019-03-05] MEDS ORDERED: non-formulary drug (Ondansetron HCl 1 TAB) PO SCH (15:50)
[2019-03-05] MEDS: gabapentin 300mg capsule PO SCH (16:00)
--- NOTE | 2019-03-05 18:17 | NUR ---
Problems reprioritized. Patient report given, questions answered & plan of care reviewed with AMARILYS Weir.
[2019-03-05] MEDS: albuterol 2.5 MG/3 ML nebule NEB SCH (19:11)
[2019-03-05] MEDS: budesonide 0.5mg/2ml UD nebule IH SCH (19:11)
[2019-03-05] MEDS: furosemide 40mg tablet PO SCH (20:40)
[2019-03-05] MEDS: calcium acetate 667mg (PhosLO) capsule PO SCH (20:40)
[2019-03-05] MEDS: sevelamer carbonate 800mg tablet PO SCH (20:40)
[2019-03-05] MEDS: insulin glargine (Lantus) pen - multi-dose SQ SCH ×2 (20:57→20:58)
[2019-03-05] MEDS: proCHLORperazine 10 MG/2 ml inj IV PRN (21:35)
[2019-03-05] MEDS: HYDROcodone/acetaminophen 10/325mg tab PO PRN (21:36)
[2019-03-05] MEDS: OXAZEpam 15mg capsule PO PRN (22:59)
[2019-03-05] MEDS: albuterol 2.5 MG/3 ML nebule NEB PRN (23:46)
[2019-03-06] VITALS (24 sets, daily range): BP systolic 90–134; BP diastolic 40–95
[2019-03-06] MEDS: VANCOmycin 1250MG/NS 250ml Bag 250 ML IV SCH (00:07)
[2019-03-06] MEDS: piperacillin/tazo 4.5gm/100ml 50 ML IV SCH (00:08)
[2019-03-06] MEDS: gabapentin 300mg capsule PO SCH ×3 (00:10→16:58)
[2019-03-06] MEDS ORDERED: proMETHazine 25mg tablet PO ONE (02:05)
[2019-03-06] MEDS: albuterol 2.5 MG/3 ML nebule NEB SCH ×4 (02:38→20:48)
[2019-03-06 04:40] LABS: BASOPHILS % (AUTO) 0.4 % (0-1); EOSINOPHILS % (AUTO) 0.2 % (0-6); HEMATOCRIT 27.4 % (35.0-45.0); HEMOGLOBIN 9.1 g/dl (12.0-16.0); LYMPHOCYTES # (AUTO) 0.4 X10'3 (1.1-4.8); LYMPHOCYTES % (AUTO) 5.4 % (21-51); MEAN CORPUSCULAR HEMOGLOBIN 33.9 PG (27.0-31.0); MEAN CORPUSCULAR HGB CONC 33.2 g/dL (33.0-36.5); MONOCYTES # (AUTO) 0.4 X10'3 (0-0.9); MONOCYTES % (AUTO) 5.1 % (2-12); NEUTROPHILS # (AUTO) 6.6 X10'3 (1.8-7.7); NEUTROPHILS % (AUTO) 88.9 % (42-75); PLATELET COUNT 223 X10'3 (140-440); RED BLOOD COUNT 2.68 X10'6 (4.20-5.60); RED CELL DISTRIBUTION WIDTH 17.2 % (11.5-14.5); WHITE BLOOD COUNT 7.4 X10'3 (4.5-11.0)
[2019-03-06] MEDS: ondansetron/PF 4mg/2ml inj IV PRN ×2 (04:52→13:44)
[2019-03-06] MEDS: morphine 2 MG/ML inj. syringe IV PRN (04:54)
[2019-03-06 05:04] LABS: ALANINE AMINOTRANSFERASE 41 U/L (12-78); ALBUMIN 3.6 G/DL (3.4-5.0); ALBUMIN/GLOBULIN RATIO 0.8 (1.1-1.5); ALKALINE PHOSPHATASE 54 IU/L (46-116); ANION GAP 10 (8-16); ASPARTATE AMINO TRANSFERASE 196 U/L (10-37); BILIRUBIN,TOTAL 0.7 MG/DL (0.1-1.0); BLOOD UREA NITROGEN 24 MG/DL (7-18); BUN/CREATININE RATIO 7.7 (6.6-38.0); CALCIUM 8.4 MG/DL (8.5-10.1); CHLORIDE 97 MMOL/L (99-107); CREATININE 3.13 MG/DL (0.40-0.90); GLUCOSE 110 MG/DL (70-104); POTASSIUM 3.8 MMOL/L (3.5-5.1); SODIUM 135 MMOL/L (135-145); TOTAL CARBON DIOXIDE 28.2 MMOL/L (24-32); TOTAL PROTEIN 8.1 G/DL (6.4-8.2); eGFR 15 ML/MIN
[2019-03-06 05:06] LABS: PHOSPHORUS 4.9 MG/DL (2.3-4.5)
[2019-03-06 06:07] LABS: TROPONIN I 47.78 NG/ML (0.0-0.05)
[2019-03-06] MEDS: amLODIPine 5mg tablet PO SCH (07:32)
[2019-03-06] MEDS: sertraline 50mg tablet PO SCH (07:32)
[2019-03-06] MEDS: fenofibrate 145mg tablet PO SCH (07:32)
[2019-03-06] MEDS: AZITHROMYCIN 500 MG in NS 250ml IV.SOLN IV SCH (07:32)
[2019-03-06] MEDS: clopidogrel 75mg tablet PO SCH (07:32)
[2019-03-06] MEDS: lactobacillus rhamnosus 10,000 MMU CELLS/CAPSULE PO SCH ×2 (07:33→21:50)
[2019-03-06] MEDS: cyanocobalamin 500mcg tablet PO SCH (07:33)
[2019-03-06] MEDS: furosemide 40mg tablet PO SCH ×3 (07:33→21:49)
[2019-03-06] MEDS: pantoprazole 40 MG vial IV SCH (07:33)
[2019-03-06] MEDS: levoTHYROXINE 100mcg tablet PO SCH (07:33)
[2019-03-06] MEDS: calcium acetate 667mg (PhosLO) capsule PO SCH ×3 (07:33→17:24)
[2019-03-06] MEDS: aspirin 325mg tablet PO SCH (07:33)
[2019-03-06] MEDS: folic acid/vitamin B complex w/vitamin C 0.8mg tablet PO SCH (07:34)
[2019-03-06] MEDS: docusate sod 100mg capsule PO SCH (07:34)
[2019-03-06] MEDS: sevelamer carbonate 800mg tablet PO SCH ×3 (07:34→17:24)
[2019-03-06] MEDS: midodrine 5mg tablet PO SCH (07:34)
[2019-03-06] MEDS: metoprolol succinate 25mg (24-HOUR) SR. Tablet PO SCH (07:41)
[2019-03-06] MEDS ORDERED: pantoprazole 40mg Tablet.DR PO SCH (08:00)
[2019-03-06] MEDS ORDERED: normal saline 1000ml 250 ML IV PRN (08:00)
[2019-03-06] MEDS ORDERED: heparin 1,000 units/ml 10ml inj HE ONE ×2 (08:00)
[2019-03-06] MEDS ORDERED: albumin (human) 25% 100ml IV 100 ML IV PRN (08:00)
[2019-03-06] MEDS ORDERED: epoetin 20,000 units/ml inj IV ONE (08:00)
[2019-03-06] MEDS ORDERED: clopidogrel 75mg tablet PO SCH (08:00)
[2019-03-06] MEDS: budesonide 0.5mg/2ml UD nebule IH SCH (08:00)
[2019-03-06] MEDS: K, MAG and/or Phos replacement - Verify level? MC SCH (08:00)
[2019-03-06] MEDS ORDERED: LIDOcaine 1% (10mg/ml) 2ml vial SQ ONE (08:00)
[2019-03-06] MEDS: piperacillin/tazo 4.5gm/100ml 100 ML IV SCH (12:27)
[2019-03-06 14:53] LABS: HBSAG SCREEN Negative (Negative)
[2019-03-06] MEDS ORDERED: lactulose 20gm/30ml cup PO PRN (17:15)
[2019-03-06] MEDS: HYDROcodone/acetaminophen 10/325mg tab PO PRN (17:24)
--- NOTE | 2019-03-06 18:15 | NUR ---
Patient in room CICU 2013. I have received report from AMARILYS Juarez and had the opportunity to ask questions and assume patient care.
[2019-03-06] MEDS: proCHLORperazine 10 MG/2 ml inj IV PRN (18:50)
[2019-03-06] MEDS: insulin Lispro (HumaLOG) vial - multi-dose SQ SCH (20:43)
[2019-03-06] MEDS: insulin glargine (Lantus) pen - multi-dose SQ SCH ×2 (20:47→21:00)
[2019-03-06] MEDS ORDERED: atropine 0.1mg/ml 10ml syringe ONE (22:31)
[2019-03-06] MEDS ORDERED: atropine 1 MG/1 ML vial IV ONE (22:40)
--- NOTE | 2019-03-06 22:50 | NUR ---
Pt had brief period of 3rd degree heart block at about 2230 w/HR down to 18/min; pt symptomatic w/low BP; HR then back up to 30-40s, difficult to tell if 2nd degree or continued 3rd degree; EKG done; Nalini called, 1/2 amp of atropine given w/no change in HR; received orders for dopamine gtt for continued low BP; Dr. Corey notified and no new orders; back up external pacer placed on patient.
[2019-03-06] MEDS: DOPamine 400mg/D5W 250ml 250 ML IV PRN (23:11)
[2019-03-07] VITALS (27 sets, daily range): BP systolic 90–183; BP diastolic 28–99
[2019-03-07] MEDS: piperacillin/tazo 4.5gm/100ml 100 ML IV SCH ×3 (00:16→23:38)
[2019-03-07] MEDS: VANCOmycin 1250MG/NS 250ml Bag 250 ML IV SCH (00:16)
[2019-03-07] MEDS: morphine 2 MG/ML inj. syringe IV PRN (00:43)
--- NOTE | 2019-03-07 00:45 | NUR ---
Dr. Corey at bedside to eval pt. Orders are to continue Dopamine drip currently at 11mcg/mg/min. Pt will go in this AM to have a pacemaker placed. Will continue close observation of pt.
[2019-03-07] MEDS: ondansetron/PF 4mg/2ml inj IV PRN (01:13)
--- NOTE | 2019-03-07 01:35 | NUR ---
Dr. Corey at bedside; called re: c/o chest pain w/nausea and continued low BP despite dopamine at 11mkcg/kg/min; leigh ann accessed per Nalini.
[2019-03-07] MEDS: budesonide 0.5mg/2ml UD nebule IH SCH ×3 (02:44→21:52)
[2019-03-07] MEDS: albuterol 2.5 MG/3 ML nebule NEB SCH ×4 (02:44→21:52)
[2019-03-07 03:52] LABS: BASOPHILS % (AUTO) 0.2 % (0-1); EOSINOPHILS % (AUTO) 0.3 % (0-6); HEMATOCRIT 28.5 % (35.0-45.0); LYMPHOCYTES # (AUTO) 0.6 X10'3 (1.1-4.8); LYMPHOCYTES % (AUTO) 4.7 % (21-51); MEAN CORPUSCULAR HGB CONC 31.8 g/dL (33.0-36.5); MEAN CORPUSCULAR VOLUME 103.8 FL (78-98); MEAN PLATELET VOLUME 8.2 FL (7.4-10.4); MONOCYTES # (AUTO) 0.8 X10'3 (0-0.9); MONOCYTES % (AUTO) 6.5 % (2-12); NEUTROPHILS % (AUTO) 88.3 % (42-75); PLATELET COUNT 246 X10'3 (140-440); RED BLOOD COUNT 2.74 X10'6 (4.20-5.60); RED CELL DISTRIBUTION WIDTH 17.1 % (11.5-14.5); WHITE BLOOD COUNT 12.5 X10'3 (4.5-11.0)
[2019-03-07 04:06] LABS: ALANINE AMINOTRANSFERASE 41 U/L (12-78); ALBUMIN 3.3 G/DL (3.4-5.0); ALBUMIN/GLOBULIN RATIO 0.7 (1.1-1.5); ALKALINE PHOSPHATASE 51 IU/L (46-116); ANION GAP 16 (8-16); ASPARTATE AMINO TRANSFERASE 143 U/L (10-37); BILIRUBIN,TOTAL 0.9 MG/DL (0.1-1.0); BLOOD UREA NITROGEN 39 MG/DL (7-18); BUN/CREATININE RATIO 8.6 (6.6-38.0); CALCIUM 7.8 MG/DL (8.5-10.1); CHLORIDE 89 MMOL/L (99-107); CREATININE 4.54 MG/DL (0.40-0.90); GLUCOSE 179 MG/DL (70-104); MAGNESIUM 2.1 MG/DL (1.5-2.4); PHOSPHORUS 5.5 MG/DL (2.3-4.5); POTASSIUM 3.9 MMOL/L (3.5-5.1); SODIUM 131 MMOL/L (135-145); TOTAL CARBON DIOXIDE 26.2 MMOL/L (24-32); eGFR 10 ML/MIN
--- NOTE | 2019-03-07 06:08 | NUR ---
PATIENT STOOLED AGAIN, FULL TURN AND BED CHANGE. MULTIPLE TIMES THIS SHIFT. THIS PARTICULAR TIME, PATIENT C/O TIGHTNESS ACROSS HER CHEST. EKG RHYTHM IS PACED (SINCE 01:04). NO ECTOPY. MORPHINE GIVEN PER ORDER. AFTER 1/2 HOUR PATIENT SAID PAIN IMPROVED TO 5/10. PATIENT IS NOT SHOWING SIGNS OF PAIN BEFORE WHEN SHE WAS MOANING. CURRENTLY USING HER PHONE, Carsabi, COMFORTABLE.
--- NOTE | 2019-03-07 06:15 | NUR ---
Problems reprioritized. Patient report given, questions answered & plan of care reviewed with AMARILYS Wilkins.
[2019-03-07] MEDS: proCHLORperazine 10 MG/2 ml inj IV PRN (06:19)
[2019-03-07] MEDS: DOPamine 400mg/D5W 250ml 250 ML IV PRN (06:30)
--- NOTE | 2019-03-07 07:29 | NUR ---
Attempted to call pt's daughter (Vidhya) per pt request to update her on her mother's condition. No answer so a brief message with the number to the hospital was made.
[2019-03-07] MEDS ORDERED: normal saline 1000ml 100 ML IV PRN (08:00)
[2019-03-07] MEDS: metoprolol succinate 25mg (24-HOUR) SR. Tablet PO SCH (08:00)
[2019-03-07] MEDS: calcium acetate 667mg (PhosLO) capsule PO SCH ×3 (08:00→17:19)
[2019-03-07] MEDS: docusate sod 100mg capsule PO SCH (08:00)
[2019-03-07] MEDS: folic acid/vitamin B complex w/vitamin C 0.8mg tablet PO SCH (08:00)
[2019-03-07] MEDS: furosemide 40mg tablet PO SCH ×3 (08:00→20:46)
[2019-03-07] MEDS ORDERED: epoetin 20,000 units/ml inj IV ONE (08:00)
[2019-03-07] MEDS ORDERED: albumin (human) 25% 100ml IV 100 ML IV PRN (08:00)
[2019-03-07] MEDS: sevelamer carbonate 800mg tablet PO SCH ×3 (08:00→19:21)
[2019-03-07] MEDS: amLODIPine 5mg tablet PO SCH (08:00)
[2019-03-07] MEDS ORDERED: normal saline 1000ml 250 ML IV PRN (08:00)
[2019-03-07] MEDS ORDERED: heparin 1,000 units/ml 10ml inj HE ONE ×2 (08:00)
[2019-03-07] MEDS: lactobacillus rhamnosus 10,000 MMU CELLS/CAPSULE PO SCH ×2 (08:00→19:59)
[2019-03-07] MEDS: gabapentin 300mg capsule PO SCH ×4 (08:00→23:41)
[2019-03-07] MEDS: cyanocobalamin 500mcg tablet PO SCH (08:00)
[2019-03-07] MEDS: K, MAG and/or Phos replacement - Verify level? MC SCH (08:00)
[2019-03-07] MEDS: midodrine 5mg tablet PO SCH (08:00)
[2019-03-07] MEDS ORDERED: LIDOcaine 1% W/epiNEPHrine 1:100,000 20ml vial ONE ×2 (08:04→10:30)
[2019-03-07] MEDS ORDERED: midazolam 2 mg/2 ml injection ONE (08:04)
[2019-03-07] MEDS ORDERED: ceFAZolin 1000mg inj ONE ×2 (08:04→08:27)
[2019-03-07] MEDS ORDERED: fentaNYL/PF 50MCG/1 ML 2ML syringe ONE (08:04)
[2019-03-07] MEDS ORDERED: morphine 2 MG/ML inj. syringe ONE (08:34)
--- NOTE | 2019-03-07 08:38 | NUR ---
Pt off the unit for pacemaker placement at 0815.
[2019-03-07] MEDS ORDERED: vancomycin 1,000mg inj ONE (08:40)
[2019-03-07] MEDS ORDERED: iohexol 350 MG/ML 50ML vial IV ONE ×4 (09:07→09:42)
--- NOTE | 2019-03-07 11:30 | NUR ---
pt returned to unit, in stable condition, called family and updated nicole (daughter) on pt's condition. Initially I called sarah but she did not answer.
[2019-03-07] MEDS: AZITHROMYCIN 500 MG in NS 250ml IV.SOLN IV SCH (11:44)
[2019-03-07] MEDS: pantoprazole 40 MG vial IV SCH (11:44)
[2019-03-07] MEDS ORDERED: vancomycin/NS 1 GM ADD-VANTAGE 250 ML IV PRN (12:00)
[2019-03-07] MEDS: insulin Lispro (HumaLOG) vial - multi-dose SQ SCH (12:56)
[2019-03-07] MEDS: aspirin 325mg tablet PO SCH (13:14)
[2019-03-07] MEDS: sertraline 50mg tablet PO SCH (13:15)
[2019-03-07] MEDS: clopidogrel 75mg tablet PO SCH (13:15)
[2019-03-07] MEDS: levoTHYROXINE 100mcg tablet PO SCH (13:15)
[2019-03-07] MEDS: fenofibrate 145mg tablet PO SCH (13:16)
--- NOTE | 2019-03-07 18:36 | NUR ---
Problems reprioritized. Patient report given to Marino, questions answered & plan of care reviewed with .
--- NOTE | 2019-03-07 20:00 | NUR ---
CAN NOT ADMINISTRATIVE COURT JUSTICE O2 SAT ON MONITOR AFTER MULTI LEAD CHANGES, PROBE CHANGES AND TYPES OF PROBE. PATIENT IS WITH IN VIEW OF RN, USING PORTABLE O2 SAT MONITOR WHICH IS ABLE TO GIVE A READING. MONITORING FOR RESPIRATORY DISTRESS Addendum: 03/08/19 at 0615 by Marino Yañez RN LORETTA SCHWARZ WITH + BRUIT AND + THRILL, PER PATIENT THIS DOES NOT WORK WHICH LEAD TO HER TCD CATHER ABOUT 4 MO AGO. SITE IS [facility]
[2019-03-07] MEDS: insulin glargine (Lantus) pen - multi-dose SQ SCH (20:53)
[2019-03-08] VITALS (24 sets, daily range): BP systolic 90–140; BP diastolic 37–75
[2019-03-08] MEDS: albuterol 2.5 MG/3 ML nebule NEB SCH ×4 (03:47→20:25)
[2019-03-08] MEDS: morphine 2 MG/ML inj. syringe IV PRN ×2 (05:24→21:26)
--- NOTE | 2019-03-08 06:30 | NUR ---
Patient in room CICU 2013. I have received report from Marino PANDA and had the opportunity to ask questions and assume patient care.
[2019-03-08] MEDS: pantoprazole 40 MG vial IV SCH (07:42)
[2019-03-08] MEDS: AZITHROMYCIN 500 MG in NS 250ml IV.SOLN IV SCH (07:42)
[2019-03-08] MEDS: levoTHYROXINE 100mcg tablet PO SCH (07:45)
[2019-03-08] MEDS: folic acid/vitamin B complex w/vitamin C 0.8mg tablet PO SCH (07:45)
[2019-03-08] MEDS: metoprolol succinate 25mg (24-HOUR) SR. Tablet PO SCH (07:46)
[2019-03-08] MEDS: midodrine 5mg tablet PO SCH (07:47)
[2019-03-08] MEDS: sertraline 50mg tablet PO SCH (07:49)
[2019-03-08] MEDS: cyanocobalamin 500mcg tablet PO SCH (07:49)
[2019-03-08] MEDS: lactobacillus rhamnosus 10,000 MMU CELLS/CAPSULE PO SCH ×2 (07:50→20:50)
[2019-03-08] MEDS: docusate sod 100mg capsule PO SCH (07:50)
[2019-03-08] MEDS: clopidogrel 75mg tablet PO SCH (07:50)
[2019-03-08] MEDS: fenofibrate 145mg tablet PO SCH (07:50)
[2019-03-08] MEDS: gabapentin 300mg capsule PO SCH (07:50)
[2019-03-08] MEDS: aspirin 325mg tablet PO SCH (07:51)
[2019-03-08] MEDS: amLODIPine 5mg tablet PO SCH (07:51)
[2019-03-08] MEDS: furosemide 40mg tablet PO SCH ×3 (07:51→20:50)
[2019-03-08] MEDS: calcium acetate 667mg (PhosLO) capsule PO SCH ×3 (07:52→17:18)
[2019-03-08] MEDS: K, MAG and/or Phos replacement - Verify level? MC SCH (08:00)
[2019-03-08] MEDS: sevelamer carbonate 800mg tablet PO SCH ×3 (08:27→17:18)
[2019-03-08] MEDS: budesonide 0.5mg/2ml UD nebule IH SCH ×2 (08:35→20:25)
[2019-03-08 08:39] LABS: BASOPHILS % (AUTO) 0.3 % (0-1); EOSINOPHILS # (AUTO) 0.1 X10'3 (0-0.9); EOSINOPHILS % (AUTO) 0.7 % (0-6); HEMATOCRIT 27.5 % (35.0-45.0); HEMOGLOBIN 8.8 g/dl (12.0-16.0); LYMPHOCYTES # (AUTO) 0.4 X10'3 (1.1-4.8); LYMPHOCYTES % (AUTO) 4.1 % (21-51); MEAN CORPUSCULAR HEMOGLOBIN 33.3 PG (27.0-31.0); MEAN CORPUSCULAR HGB CONC 31.8 g/dL (33.0-36.5); MEAN CORPUSCULAR VOLUME 104.8 FL (78-98); MEAN PLATELET VOLUME 8.5 FL (7.4-10.4); MONOCYTES # (AUTO) 0.5 X10'3 (0-0.9); MONOCYTES % (AUTO) 5.7 % (2-12); NEUTROPHILS # (AUTO) 8.5 X10'3 (1.8-7.7); NEUTROPHILS % (AUTO) 89.2 % (42-75); PLATELET COUNT 169 X10'3 (140-440); RED BLOOD COUNT 2.63 X10'6 (4.20-5.60); RED CELL DISTRIBUTION WIDTH 16.8 % (11.5-14.5); WHITE BLOOD COUNT 9.6 X10'3 (4.5-11.0)
[2019-03-08 09:04] LABS: ANION GAP 13 (8-16); BLOOD UREA NITROGEN 33 MG/DL (7-18); BUN/CREATININE RATIO 7.9 (6.6-38.0); CHLORIDE 96 MMOL/L (99-107); CREATININE 4.16 MG/DL (0.40-0.90); GLUCOSE 75 MG/DL (70-104); SODIUM 134 MMOL/L (135-145); TOTAL CARBON DIOXIDE 25.4 MMOL/L (24-32)
[2019-03-08 09:05] LABS: ALANINE AMINOTRANSFERASE 52 U/L (12-78); ALBUMIN 3.4 G/DL (3.4-5.0); ALBUMIN/GLOBULIN RATIO 0.8 (1.1-1.5); ALKALINE PHOSPHATASE 49 IU/L (46-116); ASPARTATE AMINO TRANSFERASE 156 U/L (10-37); BILIRUBIN,TOTAL 0.7 MG/DL (0.1-1.0); CALCIUM 8.3 MG/DL (8.5-10.1); MAGNESIUM 2.1 MG/DL (1.5-2.4); PHOSPHORUS 5.2 MG/DL (2.3-4.5); TOTAL PROTEIN 7.7 G/DL (6.4-8.2); VANCOMYCIN,RANDOM 30.3 UG/ML; eGFR 11 ML/MIN
[2019-03-08] MEDS: HYDROcodone/acetaminophen 10/325mg tab PO PRN ×3 (12:04→20:49)
--- NOTE | 2019-03-08 12:10 | NUR ---
Patient c/o discomfort and feeling weak. Repositioned to chair position in the bed and patient stated that they felt better. However, after 20 min patient stated that her legs were burning and throbbing and hadn't felt this way previously. Christiane administered and Dr. Barry notified. Dr. Barry ordered Gabapentin TID as well as two lidocaine patches cut in half and applied to legs. Both lidocaine patches were cut into two long strips each and then were applied to upper inner quads and lower inner calves. Patient stated she felt some relief.
[2019-03-08] MEDS: piperacillin/tazo 4.5gm/100ml 100 ML IV SCH (12:16)
[2019-03-08] MEDS: LIDOcaine 5% patch TP SCH (12:25)
[2019-03-08] MEDS: ondansetron/PF 4mg/2ml inj IV PRN (13:37)
[2019-03-08] MEDS: gabapentin 400mg capsule PO SCH (15:31)
--- NOTE | 2019-03-08 17:31 | NUR ---
Patient still c/o increasing pain in sacral area. Rechecked sacrum and it has good color and blanches well still. Placed patient far on right side off of sacral area as much as patient can tolerate. Pt. family states that patient has a history of pressure areas on sacrum. Old site followed by Dr. Rubio
[2019-03-08] MEDS: insulin glargine (Lantus) pen - multi-dose SQ SCH (21:31)
--- NOTE | 2019-03-08 22:00 | NUR ---
Pt refusing to stay turned on one side and wants to be "flat" on her back. Attempted to educate on importance of turning to prevent skin breakdown. Pt states that her "butt hurts", after norco and morphine administration. Pt states she needs cbd oil.
[2019-03-08] MEDS: VANCOMYCIN LEVEL IV SCH (23:30)
[2019-03-09] VITALS (24 sets, daily range): BP systolic 108–138; BP diastolic 49–80
--- NOTE | 2019-03-09 | NUR ---
Pt refusing to stay turned on one side and wants to be "flat" on her back. Attempted to educate on importance of turning to prevent skin breakdown.
[2019-03-09] MEDS: piperacillin/tazo 4.5gm/100ml 100 ML IV SCH ×3 (00:33→23:38)
[2019-03-09] MEDS: gabapentin 400mg capsule PO SCH ×4 (00:34→23:38)
[2019-03-09] MEDS: morphine 2 MG/ML inj. syringe IV PRN (00:34)
[2019-03-09] MEDS: HYDROcodone/acetaminophen 10/325mg tab PO PRN ×3 (01:43→20:54)
[2019-03-09] MEDS: albuterol 2.5 MG/3 ML nebule NEB SCH ×4 (02:27→20:29)
[2019-03-09] MEDS: VANCOMYCIN LEVEL IV SCH (02:59)
[2019-03-09 05:42] LABS: BASOPHILS # (AUTO) 0.1 X10'3 (0-0.2); BASOPHILS % (AUTO) 0.7 % (0-1); EOSINOPHILS # (AUTO) 0.1 X10'3 (0-0.9); EOSINOPHILS % (AUTO) 1.3 % (0-6); HEMATOCRIT 26.6 % (35.0-45.0); HEMOGLOBIN 8.8 g/dl (12.0-16.0); LYMPHOCYTES # (AUTO) 0.7 X10'3 (1.1-4.8); LYMPHOCYTES % (AUTO) 9.2 % (21-51); MEAN CORPUSCULAR HEMOGLOBIN 34.3 PG (27.0-31.0); MEAN CORPUSCULAR VOLUME 104.1 FL (78-98); MEAN PLATELET VOLUME 8.3 FL (7.4-10.4); MONOCYTES # (AUTO) 0.8 X10'3 (0-0.9); MONOCYTES % (AUTO) 9.3 % (2-12); NEUTROPHILS # (AUTO) 6.5 X10'3 (1.8-7.7); NEUTROPHILS % (AUTO) 79.5 % (42-75); PLATELET COUNT 177 X10'3 (140-440); RED BLOOD COUNT 2.56 X10'6 (4.20-5.60); RED CELL DISTRIBUTION WIDTH 16.7 % (11.5-14.5); WHITE BLOOD COUNT 8.2 X10'3 (4.5-11.0)
[2019-03-09 05:53] LABS: ANION GAP 12 (8-16); BILIRUBIN,TOTAL 0.7 MG/DL (0.1-1.0); BLOOD UREA NITROGEN 42 MG/DL (7-18); BUN/CREATININE RATIO 7.7 (6.6-38.0); CALCIUM 8.2 MG/DL (8.5-10.1); CHLORIDE 92 MMOL/L (99-107); CREATININE 5.46 MG/DL (0.40-0.90); GLUCOSE 84 MG/DL (70-104); MAGNESIUM 2.2 MG/DL (1.5-2.4); PHOSPHORUS 5.8 MG/DL (2.3-4.5); SODIUM 131 MMOL/L (135-145); TOTAL CARBON DIOXIDE 26.7 MMOL/L (24-32); eGFR 8 ML/MIN
[2019-03-09 05:54] LABS: ALANINE AMINOTRANSFERASE 54 U/L (12-78); ALBUMIN 3.3 G/DL (3.4-5.0); ALBUMIN/GLOBULIN RATIO 0.7 (1.1-1.5); ALKALINE PHOSPHATASE 49 IU/L (46-116); ASPARTATE AMINO TRANSFERASE 133 U/L (10-37); TOTAL PROTEIN 7.8 G/DL (6.4-8.2); VANCOMYCIN,RANDOM 30.3 UG/ML
[2019-03-09] MEDS: dextrose ORAL solution 15 GM/59 ML bottle PO PRN ×3 (07:27→17:28)
[2019-03-09] MEDS ORDERED: heparin 1,000 units/ml 10ml inj HE ONE ×2 (08:00)
[2019-03-09] MEDS ORDERED: normal saline 1000ml 250 ML IV PRN (08:00)
[2019-03-09] MEDS ORDERED: epoetin 20,000 units/ml inj IV ONE (08:00)
[2019-03-09] MEDS ORDERED: LIDOcaine 1% (10mg/ml) 2ml vial SQ ONE (08:00)
[2019-03-09] MEDS ORDERED: albumin (human) 25% 100ml IV 100 ML IV PRN (08:00)
[2019-03-09] MEDS: K, MAG and/or Phos replacement - Verify level? MC SCH (08:00)
[2019-03-09] MEDS: budesonide 0.5mg/2ml UD nebule IH SCH ×2 (08:09→20:29)
[2019-03-09] MEDS: pantoprazole 40mg Tablet.DR PO SCH (08:22)
[2019-03-09] MEDS: AZITHROMYCIN 500 MG in NS 250ml IV.SOLN IV SCH (08:25)
[2019-03-09] MEDS: docusate sod 100mg capsule PO SCH (08:25)
[2019-03-09] MEDS: aspirin 325mg tablet PO SCH (08:25)
[2019-03-09] MEDS: furosemide 40mg tablet PO SCH ×3 (08:26→20:30)
[2019-03-09] MEDS: folic acid/vitamin B complex w/vitamin C 0.8mg tablet PO SCH (08:26)
[2019-03-09] MEDS: lactobacillus rhamnosus 10,000 MMU CELLS/CAPSULE PO SCH ×2 (08:26→20:30)
[2019-03-09] MEDS: clopidogrel 75mg tablet PO SCH (08:27)
[2019-03-09] MEDS: amLODIPine 5mg tablet PO SCH (08:27)
[2019-03-09] MEDS: calcium acetate 667mg (PhosLO) capsule PO SCH ×3 (08:27→18:09)
[2019-03-09] MEDS: midodrine 5mg tablet PO SCH (08:28)
[2019-03-09] MEDS: levoTHYROXINE 100mcg tablet PO SCH (08:29)
[2019-03-09] MEDS: sevelamer carbonate 800mg tablet PO SCH ×3 (08:29→18:09)
[2019-03-09] MEDS: metoprolol succinate 25mg (24-HOUR) SR. Tablet PO SCH (08:30)
[2019-03-09] MEDS: fenofibrate 145mg tablet PO SCH (08:30)
[2019-03-09] MEDS: cyanocobalamin 500mcg tablet PO SCH (08:31)
[2019-03-09] MEDS: sertraline 50mg tablet PO SCH (08:31)
[2019-03-09] MEDS: LIDOcaine 5% patch TP SCH (08:33)
--- NOTE | 2019-03-09 09:15 | NUR ---
Patient in room CICU 2013. I have received report from AMARILYS POLLACK and had the opportunity to ask questions and assume patient care.
--- NOTE | 2019-03-09 12:03 | NUR ---
Initial: Pt admit w/ COPD exacerbation, NSTEMI, hx ESRD on HD, T2DM w/ DM ed done recent previous visit by RD. Pt s/p stent placement. LBM 03/07 receiving renvela, colace, and reglan. BMx8 03/07 noted likely error. Pt wt increased 10kg bed scale w/ negative fluid balance on HD; likely error. Pt PO remains poor 0-25% 5 days since admit; feels weak and tired per MD note. Pt seen by RD for additional preferences; pt requests finely chopped trays and declines additional food preferences at this time. Dietary notified. JOHN d/w RN regarding diet advancement to regular per MD approval given poor PO hx. Receiving HD today. Will continue to monitor. Rec: 1. liberalize diet to regular per MD approval given poor PO hx 2. finely chopped tray per pt request; encourage PO; consider ONS if PO improves 3. routine bowel care 4. MVI w/ HD 5. wt w/ HD Addendum: 03/09/19 at [address] Amended: Links added.
--- NOTE | 2019-03-09 12:10 | NUR ---
DISCUSSED ZOSYN DOSE DUE AT 1200 WITH HD IN PROGRESS WITH [facility] LAST. STATES "START IT WHEN HD IS COMPLETE, AND I WILL RE TIME IT FROM THERE".
--- NOTE | 2019-03-09 18:26 | NUR ---
Problems reprioritized. Patient report given, questions answered & plan of care reviewed with AMARILYS HEAD.
--- NOTE | 2019-03-09 18:30 | NUR ---
Patient in room CICU 2013. I have received report from roberta slaughter and had the opportunity to ask questions and assume patient care.
--- NOTE | 2019-03-09 19:18 | NUR ---
pt is A&Ox 4. pt is noncompliant with turning and keeping her arm in the sling, education provided however pt continues to refuse. will continue to monitor
[2019-03-09] MEDS: OXAZEpam 15mg capsule PO PRN (20:53)
[2019-03-09] MEDS: insulin glargine (Lantus) pen - multi-dose SQ SCH (21:00)
--- NOTE | 2019-03-09 23:41 | NUR ---
pt has been using her call light and bed controls since I got on shift. pt now reports that she is too weak to use her remotes and reach for things off the bedside table. pt needs strong encouragement to retain her independence and to participate in her own care and with ADLs.
[2019-03-10] VITALS (20 sets, daily range): BP systolic 93–153; BP diastolic 46–74
--- NOTE | 2019-03-10 02:25 | NUR ---
pt continues to need a lot of encouragement to retain her independence. visualized pt turn her and reposition herself in bed. will continue to monitor
[2019-03-10] MEDS: VANCOMYCIN LEVEL IV SCH (03:00)
[2019-03-10] MEDS: albuterol 2.5 MG/3 ML nebule NEB SCH ×4 (03:58→20:13)
--- NOTE | 2019-03-10 06:30 | NUR ---
Patient in room CICU 2013. I have received report from Ирина PANDA and had the opportunity to ask questions and assume patient care.
[2019-03-10 07:02] LABS: BASOPHILS % (AUTO) 0.5 % (0-1); EOSINOPHILS # (AUTO) 0.1 X10'3 (0-0.9); EOSINOPHILS % (AUTO) 1.6 % (0-6); HEMATOCRIT 25.2 % (35.0-45.0); HEMOGLOBIN 8.2 g/dl (12.0-16.0); LYMPHOCYTES # (AUTO) 0.7 X10'3 (1.1-4.8); LYMPHOCYTES % (AUTO) 10.3 % (21-51); MEAN CORPUSCULAR HEMOGLOBIN 34.1 PG (27.0-31.0); MEAN CORPUSCULAR HGB CONC 32.8 g/dL (33.0-36.5); MEAN PLATELET VOLUME 8.4 FL (7.4-10.4); MONOCYTES # (AUTO) 0.7 X10'3 (0-0.9); MONOCYTES % (AUTO) 9.2 % (2-12); NEUTROPHILS # (AUTO) 5.7 X10'3 (1.8-7.7); NEUTROPHILS % (AUTO) 78.4 % (42-75); PLATELET COUNT 170 X10'3 (140-440); RED BLOOD COUNT 2.42 X10'6 (4.20-5.60); RED CELL DISTRIBUTION WIDTH 17.2 % (11.5-14.5); WHITE BLOOD COUNT 7.3 X10'3 (4.5-11.0)
[2019-03-10 07:10] LABS: ALANINE AMINOTRANSFERASE 39 U/L (12-78); ALBUMIN/GLOBULIN RATIO 0.7 (1.1-1.5); ALKALINE PHOSPHATASE 55 IU/L (46-116); ANION GAP 8 (8-16); ASPARTATE AMINO TRANSFERASE 77 U/L (10-37); BILIRUBIN,TOTAL 0.7 MG/DL (0.1-1.0); BLOOD UREA NITROGEN 25 MG/DL (7-18); BUN/CREATININE RATIO 5.8 (6.6-38.0); CALCIUM 8.4 MG/DL (8.5-10.1); CHLORIDE 96 MMOL/L (99-107); CREATININE 4.29 MG/DL (0.40-0.90); GLUCOSE 80 MG/DL (70-104); PHOSPHORUS 4.1 MG/DL (2.3-4.5); POTASSIUM 3.9 MMOL/L (3.5-5.1); SODIUM 133 MMOL/L (135-145); TOTAL CARBON DIOXIDE 28.8 MMOL/L (24-32); TOTAL PROTEIN 7.4 G/DL (6.4-8.2); VANCOMYCIN,RANDOM 24.5 UG/ML; eGFR 11 ML/MIN
[2019-03-10] MEDS: AZITHROMYCIN 500 MG in NS 250ml IV.SOLN IV SCH (07:23)
[2019-03-10] MEDS: aspirin 325mg tablet PO SCH (07:24)
[2019-03-10] MEDS: LIDOcaine 5% patch TP SCH (07:24)
[2019-03-10] MEDS: folic acid/vitamin B complex w/vitamin C 0.8mg tablet PO SCH (07:24)
[2019-03-10] MEDS: sevelamer carbonate 800mg tablet PO SCH ×3 (07:24→18:00)
[2019-03-10] MEDS: levoTHYROXINE 100mcg tablet PO SCH (07:24)
[2019-03-10] MEDS: furosemide 40mg tablet PO SCH ×3 (07:25→21:10)
[2019-03-10] MEDS: fenofibrate 145mg tablet PO SCH (07:25)
[2019-03-10] MEDS: pantoprazole 40mg Tablet.DR PO SCH (07:25)
[2019-03-10] MEDS: midodrine 5mg tablet PO SCH (07:26)
[2019-03-10] MEDS: metoprolol succinate 25mg (24-HOUR) SR. Tablet PO SCH (07:26)
[2019-03-10] MEDS: cyanocobalamin 500mcg tablet PO SCH (07:26)
[2019-03-10] MEDS: gabapentin 400mg capsule PO SCH ×2 (07:27→16:44)
[2019-03-10] MEDS: calcium acetate 667mg (PhosLO) capsule PO SCH ×3 (07:27→18:00)
[2019-03-10] MEDS: clopidogrel 75mg tablet PO SCH (07:27)
[2019-03-10] MEDS: amLODIPine 5mg tablet PO SCH (07:27)
[2019-03-10] MEDS: sertraline 50mg tablet PO SCH (07:27)
[2019-03-10] MEDS: lactobacillus rhamnosus 10,000 MMU CELLS/CAPSULE PO SCH ×2 (07:27→21:10)
[2019-03-10] MEDS: HYDROcodone/acetaminophen 10/325mg tab PO PRN ×3 (07:59→21:10)
[2019-03-10] MEDS: K, MAG and/or Phos replacement - Verify level? MC SCH (08:00)
[2019-03-10] MEDS: docusate sod 100mg capsule PO SCH (08:00)
[2019-03-10] MEDS: budesonide 0.5mg/2ml UD nebule IH SCH ×2 (08:12→20:12)
--- NOTE | 2019-03-10 10:24 | NUR ---
MARÍA PANDA NOTIFIED EXTENDED PIV IS SWOLLEN AND WON'T DRAW. PIV PLACED TO RIGHT AC. CEPHALIC VEIN WITH EXTENDED PIV IN IS NON COMPRESSIBLE. ALIRIO PANDA NOTIFIED OF STATUS OF EXTENDED PIV RAHEEL PANDA
[2019-03-10] MEDS ORDERED: epoetin 20,000 units/ml inj SQ ONE (11:05)
[2019-03-10] MEDS ORDERED: enoxaparin 40mg/0.4ml syringe SUBCUT ONE (11:10)
--- NOTE | 2019-03-10 11:17 | NUR ---
pt's arm with extended PIV swollen. notified Dr. Rocha of PICC RN finding of noncompressible cephalic vein. orders for Lovenox BID. per Dr. Carroll, okay to remove extended PIV.
--- NOTE | 2019-03-10 17:40 | NUR ---
pt report called to Lilia PANDA; all questions answered
[2019-03-10] MEDS ORDERED: normal saline 1000ml 250 ML IV PRN (18:00)
[2019-03-10] MEDS ORDERED: epoetin 20,000 units/ml inj IV ONE (18:00)
[2019-03-10] MEDS ORDERED: heparin 1,000 units/ml 10ml inj HE ONE (18:05)
[2019-03-10] MEDS: insulin glargine (Lantus) pen - multi-dose SQ SCH (21:00)
[2019-03-10] MEDS: enoxaparin 40mg/0.4ml syringe SUBCUT SCH ×2 (21:09→23:25)
--- NOTE | 2019-03-10 23:09 | NUR ---
Patient did not eat so she did not take her PhosLo or Renvela. Spoke to pharmacy and was advised to hold medications.
--- NOTE | 2019-03-10 23:52 | NUR ---
Held patient Humalog & Lantus due to patient not eating anything tonight and blood sugar at 94.
[2019-03-11] MEDS: gabapentin 400mg capsule PO SCH ×4 (01:15→23:37)
[2019-03-11] MEDS: HYDROcodone/acetaminophen 10/325mg tab PO PRN ×4 (01:15→20:45)
[2019-03-11 02:42] VITALS: BP 138/68
[2019-03-11] MEDS: albuterol 2.5 MG/3 ML nebule NEB SCH ×4 (02:43→20:12)
[2019-03-11 05:05] LABS: BASOPHILS # (AUTO) 0.1 X10'3 (0-0.2); BASOPHILS % (AUTO) 1.1 % (0-1); EOSINOPHILS # (AUTO) 0.1 X10'3 (0-0.9); EOSINOPHILS % (AUTO) 1.3 % (0-6); HEMATOCRIT 27.2 % (35.0-45.0); HEMOGLOBIN 8.9 g/dl (12.0-16.0); LYMPHOCYTES # (AUTO) 0.9 X10'3 (1.1-4.8); LYMPHOCYTES % (AUTO) 11.1 % (21-51); MEAN CORPUSCULAR HGB CONC 32.7 g/dL (33.0-36.5); MEAN PLATELET VOLUME 8.6 FL (7.4-10.4); MONOCYTES # (AUTO) 0.7 X10'3 (0-0.9); MONOCYTES % (AUTO) 8.4 % (2-12); NEUTROPHILS # (AUTO) 6.3 X10'3 (1.8-7.7); NEUTROPHILS % (AUTO) 78.1 % (42-75); PLATELET COUNT 180 X10'3 (140-440); RED BLOOD COUNT 2.62 X10'6 (4.20-5.60); RED CELL DISTRIBUTION WIDTH 17.4 % (11.5-14.5); WHITE BLOOD COUNT 8.1 X10'3 (4.5-11.0)
[2019-03-11 05:25] LABS: ALANINE AMINOTRANSFERASE 32 U/L (12-78); ALBUMIN 2.9 G/DL (3.4-5.0); ALBUMIN/GLOBULIN RATIO 0.6 (1.1-1.5); ALKALINE PHOSPHATASE 55 IU/L (46-116); ANION GAP 14 (8-16); ASPARTATE AMINO TRANSFERASE 60 U/L (10-37); BILIRUBIN,TOTAL 0.7 MG/DL (0.1-1.0); BLOOD UREA NITROGEN 34 MG/DL (7-18); BUN/CREATININE RATIO 6.3 (6.6-38.0); CALCIUM 8.3 MG/DL (8.5-10.1); CHLORIDE 94 MMOL/L (99-107); CREATININE 5.41 MG/DL (0.40-0.90); GLUCOSE 76 MG/DL (70-104); PHOSPHORUS 5.4 MG/DL (2.3-4.5); POTASSIUM 4.1 MMOL/L (3.5-5.1); SODIUM 133 MMOL/L (135-145); TOTAL CARBON DIOXIDE 24.7 MMOL/L (24-32); TOTAL PROTEIN 7.6 G/DL (6.4-8.2); VANCOMYCIN,RANDOM 22.8 UG/ML; eGFR 8 ML/MIN
[2019-03-11 06:00] VITALS: BP 135/62
--- NOTE | 2019-03-11 06:19 | NUR ---
Problems reprioritized. Patient report given, questions answered & plan of care reviewed with AMARILYS Rodrigues, and AMARILYS Armendariz.
[2019-03-11] MEDS: K, MAG and/or Phos replacement - Verify level? MC SCH (07:55)
[2019-03-11] MEDS: lactobacillus rhamnosus 10,000 MMU CELLS/CAPSULE PO SCH ×2 (08:00→20:45)
[2019-03-11] MEDS: furosemide 40mg tablet PO SCH ×3 (08:00→20:45)
[2019-03-11] MEDS: docusate sod 100mg capsule PO SCH (08:00)
[2019-03-11] MEDS: aspirin 325mg tablet PO SCH (08:00)
[2019-03-11] MEDS: pantoprazole 40mg Tablet.DR PO SCH (08:00)
[2019-03-11] MEDS: amLODIPine 5mg tablet PO SCH (08:01)
[2019-03-11] MEDS: calcium acetate 667mg (PhosLO) capsule PO SCH ×3 (08:01→17:44)
[2019-03-11] MEDS: midodrine 5mg tablet PO SCH (08:01)
[2019-03-11] MEDS: folic acid/vitamin B complex w/vitamin C 0.8mg tablet PO SCH (08:01)
[2019-03-11] MEDS: clopidogrel 75mg tablet PO SCH (08:01)
[2019-03-11] MEDS: metoprolol succinate 25mg (24-HOUR) SR. Tablet PO SCH (08:02)
[2019-03-11] MEDS: sevelamer carbonate 800mg tablet PO SCH ×3 (08:02→17:45)
[2019-03-11] MEDS: cyanocobalamin 500mcg tablet PO SCH (08:02)
[2019-03-11] MEDS: levoTHYROXINE 100mcg tablet PO SCH (08:02)
[2019-03-11] MEDS: fenofibrate 145mg tablet PO SCH (08:02)
[2019-03-11] MEDS: sertraline 50mg tablet PO SCH (08:03)
[2019-03-11] MEDS: enoxaparin 40mg/0.4ml syringe SUBCUT SCH ×2 (08:04→20:46)
[2019-03-11] MEDS: LIDOcaine 5% patch TP SCH (08:05)
[2019-03-11] MEDS: budesonide 0.5mg/2ml UD nebule IH SCH ×2 (09:25→20:12)
[2019-03-11] MEDS ORDERED: heparin 1,000 units/ml 10ml inj HE ONE (09:40)
[2019-03-11 11:00] VITALS: BP 132/64
--- NOTE | 2019-03-11 13:05 | NUR ---
Spoke with dialysis nurse, held 80mg lasix due to low BP
[2019-03-11 15:00] VITALS: BP 152/76
[2019-03-11] MEDS: albuterol 2.5 MG/3 ML nebule NEB PRN (16:27)
[2019-03-11 18:00] VITALS: BP 156/76
--- NOTE | 2019-03-11 18:12 | NUR ---
Problems reprioritized. Patient report given, questions answered & plan of care reviewed with Trung PANDA. Patient stable at transfer of care.
--- NOTE | 2019-03-11 18:12 | NUR ---
Patient in room PCU 3009. I have received report from AMARILYS Rodrigues and had the opportunity to ask questions and assume patient care.
[2019-03-11] MEDS: insulin glargine (Lantus) pen - multi-dose SQ SCH (21:00)
[2019-03-11 22:00] VITALS: BP 154/68
[2019-03-12] VITALS (7 sets, daily range): BP systolic 106–138; BP diastolic 64–72
[2019-03-12] MEDS: HYDROcodone/acetaminophen 10/325mg tab PO PRN ×6 (00:54→23:39)
[2019-03-12] MEDS: albuterol 2.5 MG/3 ML nebule NEB SCH ×4 (02:37→20:40)
[2019-03-12 05:50] LABS: BASOPHILS # (AUTO) 0.1 X10'3 (0-0.2); BASOPHILS % (AUTO) 0.8 % (0-1); EOSINOPHILS # (AUTO) 0.1 X10'3 (0-0.9); EOSINOPHILS % (AUTO) 1.2 % (0-6); HEMATOCRIT 29.7 % (35.0-45.0); HEMOGLOBIN 9.8 g/dl (12.0-16.0); LYMPHOCYTES # (AUTO) 0.7 X10'3 (1.1-4.8); LYMPHOCYTES % (AUTO) 9.1 % (21-51); MEAN CORPUSCULAR HEMOGLOBIN 34.2 PG (27.0-31.0); MEAN CORPUSCULAR HGB CONC 32.9 g/dL (33.0-36.5); MEAN PLATELET VOLUME 8.5 FL (7.4-10.4); MONOCYTES # (AUTO) 0.6 X10'3 (0-0.9); MONOCYTES % (AUTO) 7.2 % (2-12); NEUTROPHILS # (AUTO) 6.7 X10'3 (1.8-7.7); NEUTROPHILS % (AUTO) 81.7 % (42-75); PLATELET COUNT 193 X10'3 (140-440); RED BLOOD COUNT 2.85 X10'6 (4.20-5.60); RED CELL DISTRIBUTION WIDTH 17.2 % (11.5-14.5); WHITE BLOOD COUNT 8.2 X10'3 (4.5-11.0)
[2019-03-12 05:55] LABS: ALANINE AMINOTRANSFERASE 33 U/L (12-78); ALBUMIN/GLOBULIN RATIO 0.6 (1.1-1.5); ALKALINE PHOSPHATASE 62 IU/L (46-116); ANION GAP 12 (8-16); ASPARTATE AMINO TRANSFERASE 45 U/L (10-37); BILIRUBIN,TOTAL 0.7 MG/DL (0.1-1.0); BLOOD UREA NITROGEN 20 MG/DL (7-18); BUN/CREATININE RATIO 5.1 (6.6-38.0); CALCIUM 8.6 MG/DL (8.5-10.1); CHLORIDE 96 MMOL/L (99-107); CREATININE 3.94 MG/DL (0.40-0.90); GLUCOSE 92 MG/DL (70-104); PHOSPHORUS 4.4 MG/DL (2.3-4.5); POTASSIUM 3.9 MMOL/L (3.5-5.1); SODIUM 135 MMOL/L (135-145); TOTAL CARBON DIOXIDE 27.5 MMOL/L (24-32); VANCOMYCIN,RANDOM 18.5 UG/ML; eGFR 12 ML/MIN
--- NOTE | 2019-03-12 06:39 | NUR ---
Problems reprioritized. Patient report given, questions answered & plan of care reviewed with AMARILYS Herrmann. Patient stable at shift change.
--- NOTE | 2019-03-12 07:43 | NUR ---
blood glucose 70 and symptomatic: difficult to arouse PRN given with juice.
[2019-03-12] MEDS: docusate sod 100mg capsule PO SCH (08:00)
[2019-03-12] MEDS: K, MAG and/or Phos replacement - Verify level? MC SCH (08:00)
[2019-03-12] MEDS: LIDOcaine 5% patch TP SCH (08:03)
[2019-03-12] MEDS: pantoprazole 40mg Tablet.DR PO SCH (08:04)
[2019-03-12] MEDS: metoprolol succinate 25mg (24-HOUR) SR. Tablet PO SCH (08:04)
[2019-03-12] MEDS: sertraline 50mg tablet PO SCH (08:04)
[2019-03-12] MEDS: levoTHYROXINE 100mcg tablet PO SCH (08:04)
[2019-03-12] MEDS: cyanocobalamin 500mcg tablet PO SCH (08:04)
[2019-03-12] MEDS: midodrine 5mg tablet PO SCH (08:05)
[2019-03-12] MEDS: gabapentin 400mg capsule PO SCH ×2 (08:05→16:00)
[2019-03-12] MEDS: folic acid/vitamin B complex w/vitamin C 0.8mg tablet PO SCH (08:05)
[2019-03-12] MEDS: fenofibrate 145mg tablet PO SCH (08:06)
[2019-03-12] MEDS: furosemide 40mg tablet PO SCH ×3 (08:06→20:26)
[2019-03-12] MEDS: amLODIPine 5mg tablet PO SCH (08:06)
[2019-03-12] MEDS: lactobacillus rhamnosus 10,000 MMU CELLS/CAPSULE PO SCH ×2 (08:06→20:25)
[2019-03-12] MEDS: calcium acetate 667mg (PhosLO) capsule PO SCH ×3 (08:06→18:00)
[2019-03-12] MEDS: clopidogrel 75mg tablet PO SCH (08:06)
[2019-03-12] MEDS: aspirin 325mg tablet PO SCH (08:06)
[2019-03-12] MEDS: enoxaparin 40mg/0.4ml syringe SUBCUT SCH ×2 (08:15→20:26)
[2019-03-12] MEDS: budesonide 0.5mg/2ml UD nebule IH SCH ×2 (09:01→20:40)
[2019-03-12] MEDS: sevelamer carbonate 800mg tablet PO SCH ×3 (10:18→18:00)
[2019-03-12] MEDS ORDERED: epoetin 20,000 units/ml inj IV ONE (12:00)
[2019-03-12] MEDS ORDERED: normal saline 1000ml 250 ML IV PRN (12:00)
[2019-03-12] MEDS ORDERED: normal saline 1000ml 100 ML IV PRN (12:00)
--- NOTE | 2019-03-12 18:25 | NUR ---
Patient in room U 3009. I have received report from AMARILYS Herrmann and had the opportunity to ask questions and assume patient care. Patient did not eat her dinner so Phoslo capsule and Renvela tablet were not administered. Both medications needs to be taken with meal. Patient's appetite has been poor.
[2019-03-12] MEDS: insulin glargine (Lantus) pen - multi-dose SQ SCH (21:00)
[2019-03-13 02:00] VITALS: BP 114/61
[2019-03-13] MEDS: albuterol 2.5 MG/3 ML nebule NEB SCH ×2 (02:55→08:16)
[2019-03-13] MEDS: HYDROcodone/acetaminophen 10/325mg tab PO PRN ×3 (04:48→14:37)
[2019-03-13 06:00] VITALS: BP 115/61
[2019-03-13 06:13] LABS: BASOPHILS # (AUTO) 0.1 X10'3 (0-0.2); BASOPHILS % (AUTO) 0.9 % (0-1); EOSINOPHILS # (AUTO) 0.1 X10'3 (0-0.9); EOSINOPHILS % (AUTO) 1.3 % (0-6); HEMATOCRIT 30.3 % (35.0-45.0); HEMOGLOBIN 9.9 g/dl (12.0-16.0); LYMPHOCYTES % (AUTO) 10.4 % (21-51); MEAN CORPUSCULAR HEMOGLOBIN 34.5 PG (27.0-31.0); MEAN CORPUSCULAR HGB CONC 32.7 g/dL (33.0-36.5); MEAN CORPUSCULAR VOLUME 105.7 FL (78-98); MEAN PLATELET VOLUME 8.4 FL (7.4-10.4); MONOCYTES # (AUTO) 0.8 X10'3 (0-0.9); MONOCYTES % (AUTO) 8.3 % (2-12); NEUTROPHILS # (AUTO) 7.3 X10'3 (1.8-7.7); NEUTROPHILS % (AUTO) 79.1 % (42-75); PLATELET COUNT 194 X10'3 (140-440); RED BLOOD COUNT 2.86 X10'6 (4.20-5.60); RED CELL DISTRIBUTION WIDTH 17.7 % (11.5-14.5); WHITE BLOOD COUNT 9.2 X10'3 (4.5-11.0)
--- NOTE | 2019-03-13 06:20 | NUR ---
Problems reprioritized. Patient report given, questions answered & plan of care reviewed with AMARILYS Herrmann. Patient stable at shift change
[2019-03-13 06:58] LABS: ALANINE AMINOTRANSFERASE 24 U/L (12-78); ALBUMIN/GLOBULIN RATIO 0.6 (1.1-1.5); ALKALINE PHOSPHATASE 70 IU/L (46-116); ANION GAP 12 (8-16); ASPARTATE AMINO TRANSFERASE 30 U/L (10-37); BILIRUBIN,TOTAL 0.6 MG/DL (0.1-1.0); BLOOD UREA NITROGEN 29 MG/DL (7-18); BUN/CREATININE RATIO 5.3 (6.6-38.0); CALCIUM 8.7 MG/DL (8.5-10.1); CHLORIDE 94 MMOL/L (99-107); CREATININE 5.48 MG/DL (0.40-0.90); GLUCOSE 100 MG/DL (70-104); MAGNESIUM 2.1 MG/DL (1.5-2.4); PHOSPHORUS 5.2 MG/DL (2.3-4.5); POTASSIUM 4.1 MMOL/L (3.5-5.1); SODIUM 132 MMOL/L (135-145); TOTAL CARBON DIOXIDE 26.5 MMOL/L (24-32); TOTAL PROTEIN 7.9 G/DL (6.4-8.2); VANCOMYCIN,RANDOM 17.3 UG/ML; eGFR 8 ML/MIN
[2019-03-13] MEDS: clopidogrel 75mg tablet PO SCH (07:48)
[2019-03-13] MEDS: calcium acetate 667mg (PhosLO) capsule PO SCH ×2 (07:48→13:00)
[2019-03-13] MEDS: levoTHYROXINE 100mcg tablet PO SCH (07:48)
[2019-03-13] MEDS: fenofibrate 145mg tablet PO SCH (07:49)
[2019-03-13] MEDS: gabapentin 400mg capsule PO SCH ×2 (07:49)
[2019-03-13] MEDS: folic acid/vitamin B complex w/vitamin C 0.8mg tablet PO SCH (07:49)
[2019-03-13] MEDS: midodrine 5mg tablet PO SCH (07:49)
[2019-03-13] MEDS: sertraline 50mg tablet PO SCH (07:49)
[2019-03-13] MEDS: metoprolol succinate 25mg (24-HOUR) SR. Tablet PO SCH (07:49)
[2019-03-13] MEDS: furosemide 40mg tablet PO SCH ×3 (07:49→15:41)
[2019-03-13] MEDS: aspirin 325mg tablet PO SCH (07:49)
[2019-03-13] MEDS: amLODIPine 5mg tablet PO SCH (07:49)
[2019-03-13] MEDS: pantoprazole 40mg Tablet.DR PO SCH (07:50)
[2019-03-13] MEDS: lactobacillus rhamnosus 10,000 MMU CELLS/CAPSULE PO SCH (07:50)
[2019-03-13] MEDS: sevelamer carbonate 800mg tablet PO SCH ×2 (07:50→13:00)
[2019-03-13] MEDS: cyanocobalamin 500mcg tablet PO SCH (07:50)
[2019-03-13] MEDS: enoxaparin 40mg/0.4ml syringe SUBCUT SCH (07:51)
[2019-03-13] MEDS: LIDOcaine 5% patch TP SCH (07:52)
[2019-03-13] MEDS: K, MAG and/or Phos replacement - Verify level? MC SCH (08:00)
[2019-03-13] MEDS: docusate sod 100mg capsule PO SCH (08:00)
[2019-03-13] MEDS: budesonide 0.5mg/2ml UD nebule IH SCH (08:16)
[2019-03-13 11:00] VITALS: BP 114/50
[2019-03-14] MEDS ORDERED: FURO80TA87 PO (16:15)
[2019-03-14] MEDS ORDERED: ALBU18HF2 INH (16:16)
[2019-03-14] MEDS ORDERED: HYDR-4353 PO (23:28)
--- NOTE | 2019-03-16 14:05 | NUR ---
Extra charge added for dialysis on Sunday03/09/19. Late entry Addendum: 03/16/19 at 1406 by Marya Saha RN Amended: Links added.
== END 2019-03-13 16:05 | disposition home health service (06) | DRG 242 ==
LOC: ER 12:50 → ED HOLD 17:15 → CMPBEDREQ 20:01 → CICU 2S 20:12 → PCU 3S 03-10 18:45
PROC: 5A1D70Z Performance of Urinary Filtration, Intermittent, Less than 6 Hours Per Day (ICD-10-PCS; 2019-03-04)
PROC: 4A023N7 Measurement of Cardiac Sampling and Pressure, Left Heart, Percutaneous Approach (ICD-10-PCS; principal; 2019-03-05)
PROC: 027236Z Dilation of Coronary Artery, Three Arteries with Three Drug-eluting Intraluminal Devices, Percutaneous Approach (ICD-10-PCS; 2019-03-05)
PROC: B2151ZZ Fluoroscopy of Left Heart using Low Osmolar Contrast (ICD-10-PCS; 2019-03-05)
PROC: 5A1D70Z Performance of Urinary Filtration, Intermittent, Less than 6 Hours Per Day (ICD-10-PCS; 2019-03-05)
PROC: 5A1D70Z Performance of Urinary Filtration, Intermittent, Less than 6 Hours Per Day (ICD-10-PCS; 2019-03-06)
PROC: 0JH606Z Insertion of Pacemaker, Dual Chamber into Chest Subcutaneous Tissue and Fascia, Open Approach (ICD-10-PCS; 2019-03-07)
PROC: 02H63JZ Insertion of Pacemaker Lead into Right Atrium, Percutaneous Approach (ICD-10-PCS; 2019-03-07)
PROC: 5A1D70Z Performance of Urinary Filtration, Intermittent, Less than 6 Hours Per Day (ICD-10-PCS; 2019-03-07)
PROC: 5A1D70Z Performance of Urinary Filtration, Intermittent, Less than 6 Hours Per Day (ICD-10-PCS; 2019-03-09)
PROC: 5A1D70Z Performance of Urinary Filtration, Intermittent, Less than 6 Hours Per Day (ICD-10-PCS; 2019-03-11)
PROC: 5A1D70Z Performance of Urinary Filtration, Intermittent, Less than 6 Hours Per Day (ICD-10-PCS; 2019-03-13)
DX: I21.4 Non-ST elevation (NSTEMI) myocardial infarction (principal); N18.6 End stage renal disease; J44.1 Chronic obstructive pulmonary disease with (acute) exacerbation; I13.2 Hypertensive heart and chronic kidney disease with heart failure and with stage 5 chronic kidney disease, or end stage renal disease; E87.70 Fluid overload, unspecified; I50.9 Heart failure, unspecified; F17.200 Nicotine dependence, unspecified, uncomplicated; I25.10 Atherosclerotic heart disease of native coronary artery without angina pectoris; Z82.49 Family history of ischemic heart disease and other diseases of the circulatory system; E78.5 Hyperlipidemia, unspecified; Z85.850 Personal history of malignant neoplasm of thyroid; G89.4 Chronic pain syndrome; R07.9 Chest pain, unspecified; E11.22 Type 2 diabetes mellitus with diabetic chronic kidney disease; Z99.2 Dependence on renal dialysis; R00.1 Bradycardia, unspecified; I95.9 Hypotension, unspecified; L89.159 Pressure ulcer of sacral region, unspecified stage
CPT/HCPCS: 33208; 33225; 92920; 92950; 93306; 93458; 96365; 99291; C9600; C9606; 36415; 36600; 71045; 71046; 76937; 80053; 80202; 82803; 82948; 83735; 84100; 84443; 84484; 85018; 85025; 85610; 85730; 87040; 87081; 87340; 90935; 93005; 94640; 94660; 94760; 97110; 97116; 97161; 97530; 97535; 99152; 99153; A4565; A4620; A6258; C1725; C1760; C1769; C1874; C1882; C1887; C1894; C1895; C1900; C9113; G0257; G0378; J0456; J0461; J0690; J0780; J1265; J1644; J1650; J1815; J2001; J2250; J2270; J2405; J2543; J3010; J3370; J3490; J7512; J7626; J8597; P9047; Q0169; Q4081; Q9967

== ENCOUNTER 2019-03-14 11:04 | Inpatient (IN) | payer MEDICARE ==
[~2019-03-14] VITALS: Ht 165.1 cm; Wt 89.9 kg
[~2019-03-14 11:04] MED LIST changes: -AMLO-314 PO; -FLUT1BLS4 INH; -FURO80TA87 PO; -LACT1CAP65 PO; -MELA3TAB64 PO; -OMEG1CAP46 PO; -PRED5TAB PO
[2019-03-14 11:53] LABS: BASOPHILS % (AUTO) 0.1 % (0-1); EOSINOPHILS % (AUTO) 0.1 % (0-6); HEMATOCRIT 31.8 % (35.0-45.0); HEMOGLOBIN 10.3 g/dl (12.0-16.0); LYMPHOCYTES # (AUTO) 0.7 X10'3 (1.1-4.8); LYMPHOCYTES % (AUTO) 3.6 % (21-51); MEAN CORPUSCULAR HEMOGLOBIN 34.2 PG (27.0-31.0); MEAN CORPUSCULAR HGB CONC 32.4 g/dL (33.0-36.5); MEAN CORPUSCULAR VOLUME 105.6 FL (78-98); MEAN PLATELET VOLUME 8.4 FL (7.4-10.4); MONOCYTES # (AUTO) 1.1 X10'3 (0-0.9); MONOCYTES % (AUTO) 5.8 % (2-12); NEUTROPHILS # (AUTO) 16.5 X10'3 (1.8-7.7); NEUTROPHILS % (AUTO) 90.4 % (42-75); PLATELET COUNT 202 X10'3 (140-440); RED BLOOD COUNT 3.01 X10'6 (4.20-5.60); RED CELL DISTRIBUTION WIDTH 18.3 % (11.5-14.5); WHITE BLOOD COUNT 18.2 X10'3 (4.5-11.0)
[2019-03-14 12:05] LABS: PARTIAL THROMBOPLASTIN TIME 36 SECONDS (22-32)
[2019-03-14 12:07] LABS: ALANINE AMINOTRANSFERASE 20 U/L (12-78); ALBUMIN 3.1 G/DL (3.4-5.0); ALBUMIN/GLOBULIN RATIO 0.6 (1.1-1.5); ALKALINE PHOSPHATASE 81 IU/L (46-116); ANION GAP 10 (8-16); ASPARTATE AMINO TRANSFERASE 24 U/L (10-37); BILIRUBIN,TOTAL 0.6 MG/DL (0.1-1.0); BLOOD UREA NITROGEN 22 MG/DL (7-18); CALCIUM 8.8 MG/DL (8.5-10.1); CHLORIDE 94 MMOL/L (99-107); GLUCOSE 167 MG/DL (70-104); POTASSIUM 3.9 MMOL/L (3.5-5.1); SODIUM 133 MMOL/L (135-145); TOTAL CARBON DIOXIDE 29.2 MMOL/L (24-32); TOTAL PROTEIN 8.4 G/DL (6.4-8.2)
[2019-03-14] MEDS ORDERED: CefTRIAXone 2gm/D5W 50ml 50 ML IV ONE (12:10)
[2019-03-14 12:18] LABS: BUN/CREATININE RATIO 4.7 (6.6-38.0); CREATININE 4.68 MG/DL (0.40-0.90); ETHANOL < 0.010 GM/DL (0.0-0.010); eGFR 10 ML/MIN
--- NOTE | 2019-03-14 12:28 | NUR ---
patient to ct.
[2019-03-14 14:02] LABS: CLARITY,URINE TURBID (Clear); COLOR,URINE YELLOW (Yellow); GLUCOSE, URINE NEGATIVE (Neg); KETONES,URINE TRACE mg/dl (Neg); LEUKOCYTE ESTERASE ,URINE MODERATE (Neg); NITRITES, URINE NEGATIVE (Neg); OCCULT BLOOD,URINE SMALL (Neg); PROTEIN,URINE 100 mg/dl (Neg); UROBILINOGEN,URINE 0.2 E.U/dL (0.2-1.0)
[2019-03-14 14:04] LABS: UA COLLECTION TYPE STRAIGHT CATH
[2019-03-14 14:12] LABS: BACTERIA,URINE 1+ /HPF (Neg); MUCUS STRANDS NONE SEEN /LPF (Neg); SQUAMOUS EPITHELIAL CELL,UR NONE SEEN /LPF (FEW); WBC CLUMPS,URINE MANY /HPF (NEGATIVE); WBC,URINE TNTC /HPF (0-4)
[2019-03-14 14:21] LABS: URINE AMPHETAMINE SCREEN NEGATIVE (Neg); URINE BARBITUATE SCREEN NEGATIVE (Neg); URINE BENZODIAZEPINES SCREEN NEGATIVE (Neg); URINE CANNABINOID SCREEN NEGATIVE (Neg); URINE COCAINE SCREEN NEGATIVE (Neg); URINE METHADONE SCREEN NEGATIVE (Neg); URINE OPIATE SCREEN POSITIVE (Neg); URINE PHENCYCLIDINE SCREEN NEGATIVE (Neg)
[2019-03-14] MEDS ORDERED: vancomycin/NS 1 GM ADD-VANTAGE 250 ML IV ONE (14:30)
[2019-03-14] MEDS ORDERED: cefTAZidime inj 2 GM in normal saline 100ml IV soln 100 ML IV ONE (14:30)
[2019-03-14] MEDS ORDERED: FURO80TA87 PO (16:15)
[2019-03-14] MEDS ORDERED: ALBU18HF2 INH (16:16)
[2019-03-14] MEDS ORDERED: acetaminophen 650mg rectal suppository RC PRN (19:45)
[2019-03-14] MEDS ORDERED: glucagon, human recombinant 1mg kit SUBCUT PRN (19:45)
[2019-03-14] MEDS ORDERED: insulin Lispro (HumaLOG) vial - multi-dose SQ SCH (19:45)
[2019-03-14] MEDS ORDERED: dextrose ORAL solution 15 GM/59 ML bottle PO PRN ×2 (19:45)
[2019-03-14] MEDS ORDERED: dextrose 50%-water 50ml dispensing syringe IV PRN ×2 (19:45)
[2019-03-14] MEDS ORDERED: ondansetron/PF 4mg/2ml inj IV PRN (19:45)
[2019-03-14] MEDS ORDERED: acetaminophen 325mg tablet PO PRN (19:45)
[2019-03-14] MEDS ORDERED: MESSAGE TO PHARMACY PO ONE (19:45)
[2019-03-14] MEDS ORDERED: nitroGLYCERIN 0.4mg SUBLingual tab SL PRN (19:55)
[2019-03-14] MEDS ORDERED: non-formulary drug (Albuterol Sulfate (Ventolin Hfa) 2 PUFFS) INH PRN (19:55)
[2019-03-14] MEDS ORDERED: ondansetron 4mg rapidly disintigrating tab PO PRN (20:24)
--- NOTE | 2019-03-14 20:27 | NUR ---
Patient in room ED 16. I have received report from Mary Funes and had the opportunity to ask questions and assume patient care.
[2019-03-14] MEDS: docusate sod 100mg capsule PO SCH (20:35)
[2019-03-14] MEDS: heparin, porcine 5000 units/ml vial SQ SCH (20:39)
[2019-03-14] MEDS: calcium acetate 667mg (PhosLO) capsule PO SCH (21:00)
[2019-03-14] MEDS ORDERED: insulin glargine (Lantus) pen - multi-dose SQ SCH (21:00)
[2019-03-14] MEDS: insulin glargine (Lantus) pen - multi-dose SQ SCH (21:00)
[2019-03-14 21:20] VITALS: BP 120/51
[2019-03-14] MEDS: sevelamer carbonate 800mg tablet PO SCH (21:43)
[2019-03-14] MEDS ORDERED: HYDR-4353 PO (23:28)
[2019-03-14] MEDS: albuterol 2.5 MG/3 ML nebule NEB SCH (23:38)
[2019-03-14] MEDS: HYDROcodone/acetaminophen 10/325mg tab PO PRN (23:43)
[2019-03-15 00:21] VITALS: BP 115/52
[2019-03-15] MEDS: albuterol 2.5 MG/3 ML nebule NEB SCH ×4 (03:00→21:13)
--- NOTE | 2019-03-15 03:05 | NUR ---
Problems reprioritized. Patient report given, questions answered & plan of care reviewed with AMARILYS Montemayor.
--- NOTE | 2019-03-15 03:06 | NUR ---
Patient in room QUE 352. I have received report from AMARILYS Olivera and had the opportunity to ask questions and assume patient care. Addendum: 03/15/19 at 0306 by Sara Morgan RN Amended: Links added.
[2019-03-15 05:22] LABS: BASOPHILS % (AUTO) 0.1 % (0-1); EOSINOPHILS % (AUTO) 0.2 % (0-6); HEMATOCRIT 26.5 % (35.0-45.0); HEMOGLOBIN 8.6 g/dl (12.0-16.0); LYMPHOCYTES # (AUTO) 0.7 X10'3 (1.1-4.8); LYMPHOCYTES % (AUTO) 4.1 % (21-51); MEAN CORPUSCULAR HEMOGLOBIN 34.3 PG (27.0-31.0); MEAN CORPUSCULAR HGB CONC 32.5 g/dL (33.0-36.5); MEAN CORPUSCULAR VOLUME 105.5 FL (78-98); MEAN PLATELET VOLUME 8.4 FL (7.4-10.4); MONOCYTES # (AUTO) 1.2 X10'3 (0-0.9); MONOCYTES % (AUTO) 6.9 % (2-12); NEUTROPHILS # (AUTO) 15.4 X10'3 (1.8-7.7); NEUTROPHILS % (AUTO) 88.7 % (42-75); PLATELET COUNT 182 X10'3 (140-440); RED BLOOD COUNT 2.51 X10'6 (4.20-5.60); RED CELL DISTRIBUTION WIDTH 18.3 % (11.5-14.5); WHITE BLOOD COUNT 17.4 X10'3 (4.5-11.0)
[2019-03-15 05:29] LABS: ALANINE AMINOTRANSFERASE 17 U/L (12-78); ALBUMIN 2.5 G/DL (3.4-5.0); ALBUMIN/GLOBULIN RATIO 0.5 (1.1-1.5); ALKALINE PHOSPHATASE 72 IU/L (46-116); ANION GAP 11 (8-16); ASPARTATE AMINO TRANSFERASE 18 U/L (10-37); BILIRUBIN,TOTAL 0.4 MG/DL (0.1-1.0); BLOOD UREA NITROGEN 30 MG/DL (7-18); BUN/CREATININE RATIO 5.4 (6.6-38.0); CALCIUM 8.4 MG/DL (8.5-10.1); CHLORIDE 96 MMOL/L (99-107); GLUCOSE 137 MG/DL (70-104); PHOSPHORUS 3.8 MG/DL (2.3-4.5); POTASSIUM 3.8 MMOL/L (3.5-5.1); SODIUM 133 MMOL/L (135-145); TOTAL CARBON DIOXIDE 26.1 MMOL/L (24-32); TOTAL PROTEIN 7.1 G/DL (6.4-8.2); eGFR 8 ML/MIN
--- NOTE | 2019-03-15 06:00 | NUR ---
received report from Albina PANDA
--- NOTE | 2019-03-15 06:00 | NUR ---
received report from oz villar rn
--- NOTE | 2019-03-15 06:25 | NUR ---
Problems reprioritized. Patient report given, questions answered & plan of care reviewed with AMARILYS Santos.
--- NOTE | 2019-03-15 07:17 | NUR ---
PT HAS A FISTULA IN THE LEFT UPPER ARM NEAR AC. IT HAS A GOOD BRUI
[2019-03-15 07:19] VITALS: BP 110/49
[2019-03-15] MEDS: budesonide 0.5mg/2ml UD nebule IH SCH ×2 (07:20→21:13)
[2019-03-15] MEDS ORDERED: docusate sod 100mg capsule PO SCH (08:00)
[2019-03-15] MEDS ORDERED: furosemide 40mg tablet PO SCH (08:00)
[2019-03-15] MEDS: fenofibrate 145mg tablet PO SCH (08:06)
[2019-03-15] MEDS: docusate sod 100mg capsule PO SCH ×2 (08:07→21:49)
[2019-03-15] MEDS: midodrine 5mg tablet PO SCH (08:07)
[2019-03-15] MEDS: pantoprazole 40mg Tablet.DR PO SCH (08:08)
[2019-03-15] MEDS: sertraline 50mg tablet PO SCH (08:08)
[2019-03-15] MEDS: aspirin 325mg tablet PO SCH (08:09)
[2019-03-15] MEDS: levoTHYROXINE 100mcg tablet PO SCH (08:09)
[2019-03-15] MEDS: calcium acetate 667mg (PhosLO) capsule PO SCH ×3 (08:09→19:17)
[2019-03-15] MEDS: sevelamer carbonate 800mg tablet PO SCH ×3 (08:09→21:48)
[2019-03-15] MEDS: clopidogrel 75mg tablet PO SCH (08:09)
[2019-03-15] MEDS: metoprolol succinate 25mg (24-HOUR) SR. Tablet PO SCH (08:09)
[2019-03-15] MEDS: gabapentin 300mg capsule PO SCH ×3 (08:09→15:35)
[2019-03-15] MEDS: HYDROcodone/acetaminophen 10/325mg tab PO PRN ×3 (08:10→23:53)
[2019-03-15] MEDS: heparin, porcine 5000 units/ml vial SQ SCH ×2 (08:13→21:48)
[2019-03-15] MEDS ORDERED: levoFLOXACIN 250mg tablet PO SCH (08:20)
[2019-03-15] MEDS ORDERED: normal saline 1000ml 100 ML IV PRN (08:23)
[2019-03-15] MEDS ORDERED: normal saline 1000ml 250 ML IV PRN (08:23)
[2019-03-15] MEDS ORDERED: heparin 1,000 units/ml 10ml inj HE ONE ×2 (08:30→08:50)
[2019-03-15 11:00] VITALS: BP 116/72
[2019-03-15 18:00] VITALS: BP 101/53
--- NOTE | 2019-03-15 19:03 | NUR ---
Report given to Leatha PANDA
--- NOTE | 2019-03-15 19:04 | NUR ---
Patient in room QUE 352. I have received report from KATELYN PANDA AND NICOLE PANDA and had the opportunity to ask questions and assume patient care.
[2019-03-15] MEDS: insulin glargine (Lantus) pen - multi-dose SQ SCH (21:00)
[2019-03-15] MEDS: lactobacillus rhamnosus 10,000 MMU CELLS/CAPSULE PO SCH (21:49)
[2019-03-16] VITALS: BP 107/45
--- NOTE | 2019-03-16 01:39 | NUR ---
Patient in room QUE 352. I have received report from AMARILYS Zhang and had the opportunity to ask questions and assume patient care.
[2019-03-16] MEDS: albuterol 2.5 MG/3 ML nebule NEB SCH ×3 (03:03→13:57)
--- NOTE | 2019-03-16 06:10 | NUR ---
Patient in room QUE 352. I have received report from Albina Boyd RN and had the opportunity to ask questions and assume patient care.
[2019-03-16 06:28] LABS: BASOPHILS # (AUTO) 0.1 X10'3 (0-0.2); BASOPHILS % (AUTO) 0.4 % (0-1); EOSINOPHILS # (AUTO) 0.1 X10'3 (0-0.9); EOSINOPHILS % (AUTO) 0.4 % (0-6); HEMATOCRIT 28.1 % (35.0-45.0); HEMOGLOBIN 9.2 g/dl (12.0-16.0); LYMPHOCYTES # (AUTO) 0.7 X10'3 (1.1-4.8); LYMPHOCYTES % (AUTO) 5.2 % (21-51); MEAN CORPUSCULAR HEMOGLOBIN 34.7 PG (27.0-31.0); MEAN CORPUSCULAR HGB CONC 32.8 g/dL (33.0-36.5); MEAN CORPUSCULAR VOLUME 105.7 FL (78-98); MEAN PLATELET VOLUME 8.8 FL (7.4-10.4); MONOCYTES % (AUTO) 7.4 % (2-12); NEUTROPHILS # (AUTO) 11.6 X10'3 (1.8-7.7); NEUTROPHILS % (AUTO) 86.6 % (42-75); PLATELET COUNT 186 X10'3 (140-440); RED BLOOD COUNT 2.66 X10'6 (4.20-5.60); RED CELL DISTRIBUTION WIDTH 18.5 % (11.5-14.5); WHITE BLOOD COUNT 13.4 X10'3 (4.5-11.0)
[2019-03-16 06:30] VITALS: BP 106/48
--- NOTE | 2019-03-16 06:30 | NUR ---
Problems reprioritized. Patient report given, questions answered & plan of care reviewed with AMARILYS Turner. Addendum: 03/16/19 at 0631 by Sara Morgan RN Amended: Links added.
[2019-03-16 07:00] LABS: ALANINE AMINOTRANSFERASE 13 U/L (12-78); ALBUMIN 2.5 G/DL (3.4-5.0); ALBUMIN/GLOBULIN RATIO 0.5 (1.1-1.5); ALKALINE PHOSPHATASE 83 IU/L (46-116); ANION GAP 8 (8-16); ASPARTATE AMINO TRANSFERASE 18 U/L (10-37); BILIRUBIN,TOTAL 0.5 MG/DL (0.1-1.0); BLOOD UREA NITROGEN 22 MG/DL (7-18); BUN/CREATININE RATIO 5.6 (6.6-38.0); CALCIUM 8.9 MG/DL (8.5-10.1); CHLORIDE 98 MMOL/L (99-107); CREATININE 3.96 MG/DL (0.40-0.90); GLUCOSE 88 MG/DL (70-104); MAGNESIUM 2.1 MG/DL (1.5-2.4); PHOSPHORUS 3.5 MG/DL (2.3-4.5); POTASSIUM 3.7 MMOL/L (3.5-5.1); SODIUM 135 MMOL/L (135-145); TOTAL CARBON DIOXIDE 28.7 MMOL/L (24-32); TOTAL PROTEIN 7.6 G/DL (6.4-8.2); eGFR 12 ML/MIN
[2019-03-16] MEDS ORDERED: gabapentin 300mg capsule PO SCH (08:00)
[2019-03-16] MEDS: budesonide 0.5mg/2ml UD nebule IH SCH (09:01)
[2019-03-16] MEDS: sevelamer carbonate 800mg tablet PO SCH ×2 (09:32→13:32)
[2019-03-16] MEDS: levoTHYROXINE 100mcg tablet PO SCH (09:32)
[2019-03-16] MEDS: calcium acetate 667mg (PhosLO) capsule PO SCH ×2 (09:32→13:32)
[2019-03-16] MEDS: fenofibrate 145mg tablet PO SCH (09:32)
[2019-03-16] MEDS: clopidogrel 75mg tablet PO SCH (09:32)
[2019-03-16] MEDS: midodrine 5mg tablet PO SCH (09:32)
[2019-03-16] MEDS: docusate sod 100mg capsule PO SCH (09:32)
[2019-03-16] MEDS: aspirin 325mg tablet PO SCH (09:33)
[2019-03-16] MEDS: sertraline 50mg tablet PO SCH (09:33)
[2019-03-16] MEDS: lactobacillus rhamnosus 10,000 MMU CELLS/CAPSULE PO SCH (09:33)
[2019-03-16] MEDS: metoprolol succinate 25mg (24-HOUR) SR. Tablet PO SCH (09:33)
[2019-03-16] MEDS: pantoprazole 40mg Tablet.DR PO SCH (09:33)
[2019-03-16] MEDS: heparin, porcine 5000 units/ml vial SQ SCH (09:34)
[2019-03-16] MEDS: HYDROcodone/acetaminophen 10/325mg tab PO PRN ×2 (09:35→14:08)
[2019-03-16 11:00] VITALS: BP 112/54
[2019-03-16] MEDS ORDERED: LACT1CAP26 PO (14:17)
[2019-03-16] MEDS ORDERED: fluconazole 100mg tablet PO ONE (14:20)
[2019-03-16] MEDS ORDERED: FLUC150T66 PO (15:39)
--- NOTE | 2019-03-16 16:45 | NUR ---
DC inst provided to pt & family. No IV. All belongings sent w/pt. WC to front lobby.
== END 2019-03-16 16:48 | disposition home or self-care (01) | DRG 689 ==
LOC: ER 11:04 → ED HOLD 20:24 → SUR 3N 21:00
PROVIDERS: ADMIT Internal Medicine Critical Care Medicine; ATTEND Internal Medicine Critical Care Medicine
PROC: 5A1D70Z Performance of Urinary Filtration, Intermittent, Less than 6 Hours Per Day (ICD-10-PCS; principal; 2019-03-15)
DX: N39.0 Urinary tract infection, site not specified (principal); G93.41 Metabolic encephalopathy; N18.6 End stage renal disease; I13.2 Hypertensive heart and chronic kidney disease with heart failure and with stage 5 chronic kidney disease, or end stage renal disease; E11.22 Type 2 diabetes mellitus with diabetic chronic kidney disease; I25.10 Atherosclerotic heart disease of native coronary artery without angina pectoris; I50.9 Heart failure, unspecified; J44.9 Chronic obstructive pulmonary disease, unspecified; F32.9 Major depressive disorder, single episode, unspecified; G89.29 Other chronic pain; R04.0 Epistaxis; Z60.2 Problems related to living alone; Z95.0 Presence of cardiac pacemaker; Z99.2 Dependence on renal dialysis; Z88.8 Allergy status to other drugs, medicaments and biological substances; Z90.49 Acquired absence of other specified parts of digestive tract; Z98.51 Tubal ligation status; Z82.49 Family history of ischemic heart disease and other diseases of the circulatory system; Z83.3 Family history of diabetes mellitus
CPT/HCPCS: 36415; 70450; 71045; 80053; 80305; 80320; 81001; 82948; 83605; 83735; 84100; 84145; 84484; 85025; 85610; 85730; 87040; 87077; 87081; 87088; 87502; 87503; 93005; 94640; 94760; 96365; 97161; 97530; 99285; G0257; G0378; J0696; J0713; J1644; J1815; J3370; J7626; J8597

== ENCOUNTER 2019-04-02 08:00 | Outpatient (CLI) | payer MEDICARE ==
[~2019-04-02] VITALS: Ht 165.1 cm; Wt 90.0 kg
[~2019-04-02 08:00] MED LIST changes: +ALBU18HF2 INH; -CYAN25004 PO; +DOCUMENT DATE & TIME OF BETA-BLOCKER PO ONE; +FLUC150T66 PO; -FOLI1CAP8 PO; +FURO80TA87 PO; +HYDR-4353 PO; +LACT1CAP26 PO; +ONDA-103 PO; -ONDA4TAB11 PO; +albuterol 2.5 MG/3 ML nebule NEB ONE; +cefazolin/dext.iso 2gm/100ml 100 ML IV ONE; +famotidine 10mg tablet PO ONE; +ringers solution, lacted 1,000 ML IV SCH
== END 2019-04-02 08:05 | disposition home or self-care (01) ==
LOC: PRE-OP 08:00 → EDSTATUS 09:30
PROVIDERS: ATTEND Surgery
DX: I12.0 Hypertensive chronic kidney disease with stage 5 chronic kidney disease or end stage renal disease (principal); Z53.8 Procedure and treatment not carried out for other reasons; N18.6 End stage renal disease; M19.90 Unspecified osteoarthritis, unspecified site; J45.909 Unspecified asthma, uncomplicated; Z90.710 Acquired absence of both cervix and uterus; Z98.890 Other specified postprocedural states; Z88.8 Allergy status to other drugs, medicaments and biological substances; Z79.01 Long term (current) use of anticoagulants; Z79.4 Long term (current) use of insulin; Z79.899 Other long term (current) drug therapy; Z95.5 Presence of coronary angioplasty implant and graft; Z95.0 Presence of cardiac pacemaker; Z87.891 Personal history of nicotine dependence; Z87.01 Personal history of pneumonia (recurrent)
CPT/HCPCS: J7120

== ENCOUNTER 2019-05-14 15:07 | Emergency (ER) | payer MEDICARE ==
[~2019-05-14] VITALS: Ht 165.1 cm; Wt 95.5 kg
[~2019-05-14 15:07] MED LIST changes: -DOCUMENT DATE & TIME OF BETA-BLOCKER PO ONE; -albuterol 2.5 MG/3 ML nebule NEB ONE; -cefazolin/dext.iso 2gm/100ml 100 ML IV ONE; -famotidine 10mg tablet PO ONE; -ringers solution, lacted 1,000 ML IV SCH
[2019-05-14 16:24] LABS: CLARITY,URINE CLOUDY (Clear); COLOR,URINE YELLOW (Yellow); GLUCOSE, URINE NEGATIVE (Neg); KETONES,URINE NEGATIVE (Neg); LEUKOCYTE ESTERASE ,URINE LARGE (Neg); NITRITES, URINE NEGATIVE (Neg); OCCULT BLOOD,URINE MODERATE (Neg); PROTEIN,URINE 100 mg/dl (Neg); URINE HCG NEGATIVE (NEG); UROBILINOGEN,URINE 0.2 E.U/dL (0.2-1.0)
[2019-05-14 16:26] LABS: UA COLLECTION TYPE CLN CATCH MIDSTREAM
[2019-05-14 16:34] LABS: WBC,URINE TNTC /HPF (0-4)
[2019-05-14 16:35] LABS: BACTERIA,URINE 4+ /HPF (Neg); MUCUS STRANDS FEW /LPF (Neg); SQUAMOUS EPITHELIAL CELL,UR MODERATE /LPF (FEW); TRANSITIONAL EPI CELLS,URINE FEW /HPF; WBC CLUMPS,URINE MANY /HPF (NEGATIVE)
[2019-05-14 17:16] LABS: BASOPHILS # (AUTO) 0.1 X10'3 (0-0.2); BASOPHILS % (AUTO) 1.6 % (0-1); EOSINOPHILS # (AUTO) 0.1 X10'3 (0-0.9); EOSINOPHILS % (AUTO) 2.3 % (0-6); HEMATOCRIT 35.1 % (35.0-45.0); HEMOGLOBIN 11.5 g/dl (12.0-16.0); LYMPHOCYTES # (AUTO) 1.2 X10'3 (1.1-4.8); LYMPHOCYTES % (AUTO) 20.9 % (21-51); MEAN CORPUSCULAR HGB CONC 32.8 g/dL (33.0-36.5); MEAN CORPUSCULAR VOLUME 109.7 FL (78-98); MONOCYTES # (AUTO) 0.3 X10'3 (0-0.9); MONOCYTES % (AUTO) 6.1 % (2-12); NEUTROPHILS # (AUTO) 3.8 X10'3 (1.8-7.7); NEUTROPHILS % (AUTO) 69.1 % (42-75); PLATELET COUNT 242 X10'3 (140-440); RED CELL DISTRIBUTION WIDTH 16.5 % (11.5-14.5); WHITE BLOOD COUNT 5.5 X10'3 (4.5-11.0)
[2019-05-14 17:24] LABS: ALANINE AMINOTRANSFERASE 19 U/L (12-78); ALBUMIN 3.3 G/DL (3.4-5.0); ALBUMIN/GLOBULIN RATIO 0.7 (1.1-1.5); ALKALINE PHOSPHATASE 60 IU/L (46-116); ANION GAP 6 (8-16); ASPARTATE AMINO TRANSFERASE 30 U/L (10-37); BILIRUBIN,TOTAL 0.3 MG/DL (0.1-1.0); BLOOD UREA NITROGEN 40 MG/DL (7-18); BUN/CREATININE RATIO 5.5 (6.6-38.0); CALCIUM 10.4 MG/DL (8.5-10.1); CHLORIDE 100 MMOL/L (99-107); CREATININE 7.33 MG/DL (0.40-0.90); GLUCOSE 93 MG/DL (70-104); LIPASE 440 U/L (73-393); POTASSIUM 5.1 MMOL/L (3.5-5.1); SODIUM 139 MMOL/L (135-145); TOTAL CARBON DIOXIDE 32.9 MMOL/L (24-32); TOTAL PROTEIN 8.2 G/DL (6.4-8.2); eGFR 6 ML/MIN
--- NOTE | 2019-05-14 20:29 | NUR ---
pt to hallway bed in her wheelchair, she is able to transfer self without assist, on 02 3 liters nasal cannula
--- NOTE | 2019-05-14 20:51 | NUR ---
pt is 58 yo female c/o foul odor in urine, cloudy, lower abd "cramping", x 4-5 days, missed dialysis today but able to go tomorrow, on 02 3 liters 09/10, pt is resting quietly, family at bedside, waiting to be evaluated
[2019-05-14] MEDS ORDERED: LEVO500T89 PO (21:15)
[2019-05-14] MEDS ORDERED: HYDROcodone/acetaminophen 5mg/325mg tablet PO ONE (21:25)
[2019-05-14 21:39] VITALS: BP 117/69
== END 2019-05-14 21:41 | disposition home or self-care (01) ==
LOC: ER 15:07
DX: N39.0 Urinary tract infection, site not specified (principal); I13.2 Hypertensive heart and chronic kidney disease with heart failure and with stage 5 chronic kidney disease, or end stage renal disease; I50.9 Heart failure, unspecified; N18.6 End stage renal disease; I25.10 Atherosclerotic heart disease of native coronary artery without angina pectoris; J44.9 Chronic obstructive pulmonary disease, unspecified; E11.22 Type 2 diabetes mellitus with diabetic chronic kidney disease; G89.29 Other chronic pain; F32.9 Major depressive disorder, single episode, unspecified; Z86.14 Personal history of Methicillin resistant Staphylococcus aureus infection; Z99.2 Dependence on renal dialysis; Z85.9 Personal history of malignant neoplasm, unspecified; Z98.61 Coronary angioplasty status; Z90.49 Acquired absence of other specified parts of digestive tract; Z95.0 Presence of cardiac pacemaker; Z98.51 Tubal ligation status; Z56.0 Unemployment, unspecified; Z79.2 Long term (current) use of antibiotics; Z79.82 Long term (current) use of aspirin; Z79.4 Long term (current) use of insulin; Z79.899 Other long term (current) drug therapy
CPT/HCPCS: 36415; 80053; 81001; 81025; 83690; 85025; 87077; 87088; 87186; 99283

== ENCOUNTER 2019-07-04 22:07 | Emergency (ER) | payer MEDICARE ==
[~2019-07-04] VITALS: Ht 165.1 cm; Wt 96.4 kg
--- NOTE | 2019-07-04 22:15 | NUR ---
Pt. screened at ambulance bay. Pt. has chronic SOB/cough. Spoke with MD Scottie and he ok'd to bring pt. back to and ED room.
[2019-07-04] MEDS ORDERED: ipratropium/albuterol 3ml nebule NEB ONE (22:50)
[2019-07-04 23:14] LABS: BASOPHILS % (AUTO) 0.7 % (0-1); EOSINOPHILS # (AUTO) 0.1 X10'3 (0-0.9); EOSINOPHILS % (AUTO) 1.7 % (0-6); HEMATOCRIT 31.7 % (35.0-45.0); HEMOGLOBIN 10.3 g/dl (12.0-16.0); LYMPHOCYTES # (AUTO) 0.7 X10'3 (1.1-4.8); LYMPHOCYTES % (AUTO) 10.3 % (21-51); MEAN CORPUSCULAR HEMOGLOBIN 35.7 PG (27.0-31.0); MEAN CORPUSCULAR HGB CONC 32.7 g/dL (33.0-36.5); MEAN CORPUSCULAR VOLUME 109.2 FL (78-98); MEAN PLATELET VOLUME 7.9 FL (7.4-10.4); MONOCYTES # (AUTO) 0.4 X10'3 (0-0.9); MONOCYTES % (AUTO) 6.7 % (2-12); NEUTROPHILS # (AUTO) 5.2 X10'3 (1.8-7.7); NEUTROPHILS % (AUTO) 80.6 % (42-75); PLATELET COUNT 219 X10'3 (140-440); RED CELL DISTRIBUTION WIDTH 14.9 % (11.5-14.5); WHITE BLOOD COUNT 6.5 X10'3 (4.5-11.0)
[2019-07-04 23:24] LABS: ALANINE AMINOTRANSFERASE 22 U/L (12-78); ALBUMIN 3.2 G/DL (3.4-5.0); ALBUMIN/GLOBULIN RATIO 0.6 (1.1-1.5); ALKALINE PHOSPHATASE 58 IU/L (46-116); ANION GAP 5 (8-16); ASPARTATE AMINO TRANSFERASE 28 U/L (10-37); BILIRUBIN,TOTAL 0.3 MG/DL (0.1-1.0); BLOOD UREA NITROGEN 32 MG/DL (7-18); BUN/CREATININE RATIO 7.3 (6.6-38.0); CHLORIDE 99 MMOL/L (99-107); CREATININE 4.38 MG/DL (0.40-0.90); GLUCOSE 183 MG/DL (70-104); POTASSIUM 4.3 MMOL/L (3.5-5.1); SODIUM 137 MMOL/L (135-145); TOTAL CARBON DIOXIDE 33.2 MMOL/L (24-32); TOTAL PROTEIN 8.3 G/DL (6.4-8.2); eGFR 10 ML/MIN
[2019-07-04 23:31] LABS: MAGNESIUM 2.2 MG/DL (1.5-2.4)
[2019-07-04 23:42] LABS: CLARITY,URINE CLOUDY (Clear); COLOR,URINE YELLOW (Yellow); GLUCOSE, URINE NEGATIVE (Neg); KETONES,URINE NEGATIVE (Neg); LEUKOCYTE ESTERASE ,URINE LARGE (Neg); NITRITES, URINE NEGATIVE (Neg); OCCULT BLOOD,URINE MODERATE (Neg); PH,URINE 7.5 (4.8-8.0); PROTEIN,URINE 100 mg/dl (Neg); UROBILINOGEN,URINE 0.2 E.U/dL (0.2-1.0)
[2019-07-04 23:47] LABS: UA COLLECTION TYPE NON-SPECIFIED
[2019-07-04 23:48] LABS: AMORPHOUS PHOSPHATES 2+; BACTERIA,URINE 1+ /HPF (Neg); SQUAMOUS EPITHELIAL CELL,UR MODERATE /LPF (FEW); WBC,URINE 50-100 /HPF (0-4)
[2019-07-05] MEDS ORDERED: furosemide 10 MG/1 ML 10ml inj IV ONE
[2019-07-05] MEDS ORDERED: ciprofloxacin 250mg tablet PO ONE
[2019-07-05] MEDS ORDERED: CIPR250T4 PO
[2019-07-05 00:11] VITALS: BP 167/87
== END 2019-07-05 00:27 | disposition home or self-care (01) ==
LOC: ER 22:07
DX: J44.1 Chronic obstructive pulmonary disease with (acute) exacerbation (principal); N39.0 Urinary tract infection, site not specified; I25.10 Atherosclerotic heart disease of native coronary artery without angina pectoris; I13.2 Hypertensive heart and chronic kidney disease with heart failure and with stage 5 chronic kidney disease, or end stage renal disease; I50.9 Heart failure, unspecified; N18.6 End stage renal disease; G89.29 Other chronic pain; E11.22 Type 2 diabetes mellitus with diabetic chronic kidney disease; Z85.9 Personal history of malignant neoplasm, unspecified; Z98.61 Coronary angioplasty status; Z86.14 Personal history of Methicillin resistant Staphylococcus aureus infection; Z99.2 Dependence on renal dialysis; Z90.49 Acquired absence of other specified parts of digestive tract; Z95.0 Presence of cardiac pacemaker; Z98.51 Tubal ligation status; Z98.890 Other specified postprocedural states; Z79.2 Long term (current) use of antibiotics; Z88.8 Allergy status to other drugs, medicaments and biological substances; Z79.82 Long term (current) use of aspirin; Z79.4 Long term (current) use of insulin; Z79.899 Other long term (current) drug therapy
CPT/HCPCS: 36415; 71045; 80053; 81001; 83735; 83880; 84145; 84484; 85025; 87088; 93005; 94640; 96374; 99285; J1940; 94760

== ENCOUNTER 2019-07-12 01:49 | Emergency (ER) | payer MEDICARE ==
[~2019-07-12] VITALS: Ht 165.1 cm; Wt 88.6 kg
[2019-07-12 02:36] LABS: BASOPHILS # (AUTO) 0.1 X10'3 (0-0.2); BASOPHILS % (AUTO) 1.2 % (0-1); EOSINOPHILS # (AUTO) 0.1 X10'3 (0-0.9); EOSINOPHILS % (AUTO) 2.3 % (0-6); HEMATOCRIT 32.6 % (35.0-45.0); HEMOGLOBIN 10.6 g/dl (12.0-16.0); LYMPHOCYTES % (AUTO) 17.5 % (21-51); MEAN CORPUSCULAR HEMOGLOBIN 35.4 PG (27.0-31.0); MEAN CORPUSCULAR HGB CONC 32.4 g/dL (33.0-36.5); MEAN CORPUSCULAR VOLUME 109.3 FL (78-98); MEAN PLATELET VOLUME 8.2 FL (7.4-10.4); MONOCYTES # (AUTO) 0.7 X10'3 (0-0.9); MONOCYTES % (AUTO) 11.9 % (2-12); NEUTROPHILS # (AUTO) 3.9 X10'3 (1.8-7.7); NEUTROPHILS % (AUTO) 67.1 % (42-75); PLATELET COUNT 241 X10'3 (140-440); RED BLOOD COUNT 2.99 X10'6 (4.20-5.60); RED CELL DISTRIBUTION WIDTH 14.9 % (11.5-14.5); WHITE BLOOD COUNT 5.8 X10'3 (4.5-11.0)
[2019-07-12 02:44] LABS: PARTIAL THROMBOPLASTIN TIME 29 SECONDS (22-32)
[2019-07-12 02:48] LABS: ALANINE AMINOTRANSFERASE 19 U/L (12-78); ALBUMIN 3.4 G/DL (3.4-5.0); ALBUMIN/GLOBULIN RATIO 0.7 (1.1-1.5); ALKALINE PHOSPHATASE 59 IU/L (46-116); ANION GAP 9 (8-16); ASPARTATE AMINO TRANSFERASE 26 U/L (10-37); BILIRUBIN,TOTAL 0.5 MG/DL (0.1-1.0); BLOOD UREA NITROGEN 18 MG/DL (7-18); BUN/CREATININE RATIO 5.3 (6.6-38.0); CALCIUM 8.8 MG/DL (8.5-10.1); CHLORIDE 98 MMOL/L (99-107); CREATININE 3.38 MG/DL (0.40-0.90); GLUCOSE 152 MG/DL (70-104); POTASSIUM 3.8 MMOL/L (3.5-5.1); SODIUM 140 MMOL/L (135-145); TOTAL CARBON DIOXIDE 33.1 MMOL/L (24-32); TOTAL PROTEIN 8.5 G/DL (6.4-8.2); eGFR 14 ML/MIN
[2019-07-12 02:57] LABS: TROPONIN I 0.04 NG/ML (0.0-0.05)
[2019-07-12] MEDS ORDERED: CefTRIAXone/D5W-Rocephin 1gm 50 ML IV ONE (03:20)
[2019-07-12] MEDS ORDERED: ALB0.5UD IH (04:10)
[2019-07-12 04:32] VITALS: BP 157/85
== END 2019-07-12 04:35 | disposition home or self-care (01) ==
LOC: ER 01:50
DX: R06.02 Shortness of breath (principal); I25.10 Atherosclerotic heart disease of native coronary artery without angina pectoris; I13.2 Hypertensive heart and chronic kidney disease with heart failure and with stage 5 chronic kidney disease, or end stage renal disease; I50.9 Heart failure, unspecified; E11.22 Type 2 diabetes mellitus with diabetic chronic kidney disease; N18.6 End stage renal disease; J45.909 Unspecified asthma, uncomplicated; J44.9 Chronic obstructive pulmonary disease, unspecified; G89.29 Other chronic pain; F32.9 Major depressive disorder, single episode, unspecified; Z99.2 Dependence on renal dialysis; Z86.2 Personal history of diseases of the blood and blood-forming organs and certain disorders involving the immune mechanism; Z86.14 Personal history of Methicillin resistant Staphylococcus aureus infection; Z85.9 Personal history of malignant neoplasm, unspecified; Z90.49 Acquired absence of other specified parts of digestive tract; Z98.51 Tubal ligation status; Z98.890 Other specified postprocedural states; Z60.2 Problems related to living alone; Z56.0 Unemployment, unspecified; Z88.1 Allergy status to other antibiotic agents; Z88.8 Allergy status to other drugs, medicaments and biological substances; Z79.82 Long term (current) use of aspirin; Z79.4 Long term (current) use of insulin; Z79.899 Other long term (current) drug therapy
CPT/HCPCS: 36415; 71045; 80053; 83605; 83880; 84145; 84484; 85025; 85610; 85730; 87040; 93005; 96365; 99285; J0696

== ENCOUNTER 2019-08-02 19:18 | Emergency (ER) | payer MEDICARE ==
[~2019-08-02] VITALS: Ht 165.1 cm; Wt 90.9 kg
[~2019-08-02 19:18] MED LIST changes: +ALB0.5UD IH; -CALC667T6 PO; -FLUC150T66 PO; -HYDR-4353 PO
--- NOTE | 2019-08-02 19:28 | NUR ---
PT ON O2 AT HOME, 3 TO 4 L.
--- NOTE | 2019-08-02 20:04 | NUR ---
PT WAS DRESSING UP FOR DISCHARGE AND ALL OF SUDDEN PT NOTICED THE BLEEDING FROM PORT COMING OUT ,CALLED FOR HELP.NURSE YANIV RN DOING PRESSURE AT BEDSIDE WHEN ARRIVED,PRIMARY NURSE ON BREAK AT THIS TIME,COVERING FOR HER,PT VITALS STABLE SPO2 100%,HR 76,BP 131/97.DR MCGWOAN SAW NEW ORDER TO HOLD THE DISCHARGE,OBSERVE THE PT FOR 2 HR IN ER AND CONT TO PUT PRESSURE AND THEN GO FROM THERE.
[2019-08-02 21:09] VITALS: BP 160/81
--- NOTE | 2019-08-02 21:28 | NUR ---
CALLED PT DAUGHTER AND NOTIFIED HER THAT PT IS READY TO GO HOME. BLEEDING APPEARS TO BE CONTROLLED.
== END 2019-08-02 22:10 | disposition home or self-care (01) ==
LOC: ER 19:19
DX: T82.42XA Displacement of vascular dialysis catheter, initial encounter (principal); I25.10 Atherosclerotic heart disease of native coronary artery without angina pectoris; I50.9 Heart failure, unspecified; J44.9 Chronic obstructive pulmonary disease, unspecified; E11.22 Type 2 diabetes mellitus with diabetic chronic kidney disease; G89.29 Other chronic pain; N18.6 End stage renal disease; I13.2 Hypertensive heart and chronic kidney disease with heart failure and with stage 5 chronic kidney disease, or end stage renal disease; F32.9 Major depressive disorder, single episode, unspecified; Z98.61 Coronary angioplasty status; Z86.14 Personal history of Methicillin resistant Staphylococcus aureus infection; Z90.49 Acquired absence of other specified parts of digestive tract; Z98.51 Tubal ligation status; Z98.890 Other specified postprocedural states; Z60.2 Problems related to living alone; Z56.0 Unemployment, unspecified; Z88.8 Allergy status to other drugs, medicaments and biological substances; Z79.82 Long term (current) use of aspirin; Z79.4 Long term (current) use of insulin; Z79.899 Other long term (current) drug therapy
CPT/HCPCS: 71045; 96374; 99285

== ENCOUNTER 2019-08-04 12:10 | Day surgery (SDC) | payer MEDICARE ==
[2019-08-04] VITALS (7 sets, daily range): BP systolic 150–167; BP diastolic 52–81
--- NOTE | 2019-08-04 12:35 | NUR ---
Called Dr. Madrid to ask about labs needed & pre-procedure IV antibiotics. stated no labs needed unless pt on coumadin and no pre-meds necessary.
[2019-08-04] MEDS ORDERED: fentaNYL/PF 50MCG/1 ML 2ML syringe ONE (13:33)
[2019-08-04] MEDS ORDERED: midazolam 2 mg/2 ml injection ONE (13:33)
[2019-08-04] MEDS ORDERED: LIDOcaine 1% w/epiNEPHrine 1:200,000 30ml vial ONE (13:37)
[2019-08-04] MEDS ORDERED: gelatin sponge, absorbable (Gelfoam 12-7MM) sponge TP ONE (13:37)
[2019-08-04] MEDS ORDERED: heparin 1,000unit/ml 10ml vial 10 ML ONE (13:57)
[2019-08-14] MEDS ORDERED: FOLI1CAP8 PO (16:44)
[2019-08-16] MEDS ORDERED: PRED10TA PO (12:24)
[2019-08-16] MEDS ORDERED: LEVO500T2 PO (12:24)
== END 2019-08-04 16:40 | disposition home or self-care (01) ==
LOC: SSTAY O 12:10
PROVIDERS: ATTEND Radiology Vascular & Interventional Radiology
DX: N18.9 Chronic kidney disease, unspecified (principal); Z79.899 Other long term (current) drug therapy; Z88.1 Allergy status to other antibiotic agents; Z88.8 Allergy status to other drugs, medicaments and biological substances; Z79.4 Long term (current) use of insulin; Z83.3 Family history of diabetes mellitus; Z82.49 Family history of ischemic heart disease and other diseases of the circulatory system; Z11.59 Encounter for screening for other viral diseases
CPT/HCPCS: 36558; 76937; 77001; 87635; 99152; 99153; C1750; C1769; C1894; J1644; J2250; J3010; 36556; A9270

== ENCOUNTER 2019-09-23 08:13 | Day surgery (SDC) | payer MEDICARE ==
[~2019-09-23] VITALS: Ht 165.1 cm; Wt 87.1 kg
[~2019-09-23 08:13] MED LIST changes: -ALB0.5UD IH; -ALBU2.5V10 IH; +FOLI1CAP8 PO; -GLUC1KIT IM; -LACT1CAP26 PO; -ONDA-103 PO; -SEVE800T8 PO
[2019-09-23 08:30] VITALS: BP 115/65
[2019-09-23] MEDS ORDERED: normal saline 1000ml 1,000 ML IV ONE (08:40)
[2019-09-23 08:53] LABS: BASOPHILS # (AUTO) 0.1 X10'3 (0-0.2); BASOPHILS % (AUTO) 0.8 % (0-1); EOSINOPHILS # (AUTO) 0.1 X10'3 (0-0.9); EOSINOPHILS % (AUTO) 0.5 % (0-6); HEMATOCRIT 30.7 % (35.0-45.0); HEMOGLOBIN 9.8 g/dl (12.0-16.0); LYMPHOCYTES # (AUTO) 0.5 X10'3 (1.1-4.8); LYMPHOCYTES % (AUTO) 4.2 % (21-51); MEAN CORPUSCULAR HEMOGLOBIN 33.4 PG (27.0-31.0); MEAN CORPUSCULAR VOLUME 104.5 FL (78-98); MEAN PLATELET VOLUME 8.8 FL (7.4-10.4); MONOCYTES # (AUTO) 0.7 X10'3 (0-0.9); NEUTROPHILS # (AUTO) 9.7 X10'3 (1.8-7.7); NEUTROPHILS % (AUTO) 88.5 % (42-75); PLATELET COUNT 173 X10'3 (140-440); RED BLOOD COUNT 2.94 X10'6 (4.20-5.60); RED CELL DISTRIBUTION WIDTH 16.9 % (11.5-14.5); WHITE BLOOD COUNT 10.9 X10'3 (4.5-11.0)
[2019-09-23 09:05] LABS: ALBUMIN 3.1 G/DL (3.4-5.0); ANION GAP 13 (8-16); BLOOD UREA NITROGEN 98 MG/DL (7-18); BUN/CREATININE RATIO 9.2 (6.6-38.0); CALCIUM 8.5 MG/DL (8.5-10.1); CHLORIDE 102 MMOL/L (99-107); CREATININE 10.63 MG/DL (0.40-0.90); GLUCOSE 221 MG/DL (70-104); SODIUM 140 MMOL/L (135-145); TOTAL CARBON DIOXIDE 25.1 MMOL/L (24-32); eGFR 4 ML/MIN
[2019-09-23 09:13] LABS: POTASSIUM 6.8 MMOL/L (3.5-5.1)
--- NOTE | 2019-09-23 09:14 | NUR ---
contacted to report critical lab K 6.8. will call back.
[2019-09-23] MEDS ORDERED: sodium bicarbonate (8.4%) inj. 100 MEQ in dextrose 5%-water 1,000 ML IV SCH (09:20)
[2019-09-23] MEDS ORDERED: albuterol 2.5 MG/3 ML nebule NEB ONE (09:20)
[2019-09-23] MEDS ORDERED: tPA-cathflo 2 MG/2 ml IV flush ONE (09:26)
[2019-09-23] MEDS ORDERED: iohexol 300mg/ml 100ml inj. ONE (10:13)
[2019-09-23] MEDS ORDERED: midazolam 2 mg/2 ml injection ONE (10:13)
[2019-09-23] MEDS ORDERED: LIDOcaine 1%/PF 5ML 10 MG/ML VIAL ONE (10:13)
[2019-09-23] MEDS ORDERED: fentaNYL/PF 50MCG/1 ML 2ML syringe ONE ×2 (10:13→11:43)
[2019-09-23] MEDS ORDERED: heparin 1,000unit/ml 10ml vial 10 ML ONE (10:13)
[2019-09-23] MEDS ORDERED: heparin 1,000 UNITS/NS 500ml 500 ML ONE (10:16)
[2019-09-23] MEDS ORDERED: sodium bicarbonate (8.4%) 1 mEq/ml syringe IV ONE (10:30)
[2019-09-23 12:30] VITALS: BP 144/87
[2019-09-23 12:45] VITALS: BP 135/71
[2019-09-23 13:00] VITALS: BP 127/68
== END 2019-09-23 13:25 | disposition home IV services (08) ==
LOC: SSTAY O 08:13
PROVIDERS: ATTEND Radiology Diagnostic Radiology
DX: T82.868A Thrombosis due to vascular prosthetic devices, implants and grafts, initial encounter (principal); T82.49XA Other complication of vascular dialysis catheter, initial encounter; E11.22 Type 2 diabetes mellitus with diabetic chronic kidney disease; I13.2 Hypertensive heart and chronic kidney disease with heart failure and with stage 5 chronic kidney disease, or end stage renal disease; N18.6 End stage renal disease; I25.10 Atherosclerotic heart disease of native coronary artery without angina pectoris; I50.9 Heart failure, unspecified; I25.2 Old myocardial infarction; J44.9 Chronic obstructive pulmonary disease, unspecified; D64.89 Other specified anemias; F32.9 Major depressive disorder, single episode, unspecified; Z86.14 Personal history of Methicillin resistant Staphylococcus aureus infection; Z88.1 Allergy status to other antibiotic agents; Z88.5 Allergy status to narcotic agent; Z88.8 Allergy status to other drugs, medicaments and biological substances; Z79.82 Long term (current) use of aspirin; Z79.899 Other long term (current) drug therapy; Z82.49 Family history of ischemic heart disease and other diseases of the circulatory system; Z83.3 Family history of diabetes mellitus; Y83.8 Other surgical procedures as the cause of abnormal reaction of the patient, or of later complication, without mention of misadventure at the time of the procedure; Y83.2 Surgical operation with anastomosis, bypass or graft as the cause of abnormal reaction of the patient, or of later complication, without mention of misadventure at the time of the procedure; Y92.89 Other specified places as the place of occurrence of the external cause
CPT/HCPCS: 36415; 36581; 36905; 77001; 80048; 85025; 94640; 94760; 99152; 99153; C1725; C1750; C1769; C1894; J1644; J2250; J2997; J3010; J7030; Q9967; A9270

== ENCOUNTER 2019-09-23 20:06 | Emergency (ER) | payer MEDICARE ==
[~2019-09-23] VITALS: Ht 165.1 cm; Wt 87.3 kg
[2019-09-23 20:25] VITALS: BP 123/67
== END 2019-09-23 21:56 | disposition home or self-care (01) ==
LOC: ER 20:06
DX: S20.211A Contusion of right front wall of thorax, initial encounter (principal); T82.898A Other specified complication of vascular prosthetic devices, implants and grafts, initial encounter; I25.10 Atherosclerotic heart disease of native coronary artery without angina pectoris; I50.9 Heart failure, unspecified; I13.2 Hypertensive heart and chronic kidney disease with heart failure and with stage 5 chronic kidney disease, or end stage renal disease; I25.2 Old myocardial infarction; J44.9 Chronic obstructive pulmonary disease, unspecified; N18.6 End stage renal disease; E11.22 Type 2 diabetes mellitus with diabetic chronic kidney disease; F32.9 Major depressive disorder, single episode, unspecified; G89.29 Other chronic pain; Z86.14 Personal history of Methicillin resistant Staphylococcus aureus infection; Z85.9 Personal history of malignant neoplasm, unspecified; Z98.51 Tubal ligation status; Z95.0 Presence of cardiac pacemaker; Z98.61 Coronary angioplasty status; Z98.890 Other specified postprocedural states; Z60.2 Problems related to living alone; Z56.0 Unemployment, unspecified; Z88.8 Allergy status to other drugs, medicaments and biological substances; Z88.5 Allergy status to narcotic agent; Z79.82 Long term (current) use of aspirin; Z79.4 Long term (current) use of insulin; Z79.899 Other long term (current) drug therapy
CPT/HCPCS: 71045; 99284

== ENCOUNTER 2019-10-22 02:09 | Emergency (ER) | payer MEDICARE ==
[~2019-10-22] VITALS: Ht 165.1 cm; Wt 88.6 kg
[2019-10-22] MEDS ORDERED: fluconazole 150mg tablet PO ONE (02:50)
[2019-10-22 03:33] VITALS: BP 133/62
== END 2019-10-22 04:42 | disposition home or self-care (01) ==
LOC: ER 02:09
DX: M79.674 Pain in right toe(s) (principal); I25.10 Atherosclerotic heart disease of native coronary artery without angina pectoris; I25.2 Old myocardial infarction; J45.909 Unspecified asthma, uncomplicated; J44.9 Chronic obstructive pulmonary disease, unspecified; I13.2 Hypertensive heart and chronic kidney disease with heart failure and with stage 5 chronic kidney disease, or end stage renal disease; E11.22 Type 2 diabetes mellitus with diabetic chronic kidney disease; N18.6 End stage renal disease; G89.29 Other chronic pain; F32.9 Major depressive disorder, single episode, unspecified; Z86.2 Personal history of diseases of the blood and blood-forming organs and certain disorders involving the immune mechanism; Z99.2 Dependence on renal dialysis; Z86.14 Personal history of Methicillin resistant Staphylococcus aureus infection; Z85.9 Personal history of malignant neoplasm, unspecified; Z90.49 Acquired absence of other specified parts of digestive tract; Z95.0 Presence of cardiac pacemaker; Z98.51 Tubal ligation status; Z98.890 Other specified postprocedural states; Z60.2 Problems related to living alone; Z56.0 Unemployment, unspecified; Z88.1 Allergy status to other antibiotic agents; Z88.5 Allergy status to narcotic agent; Z88.8 Allergy status to other drugs, medicaments and biological substances; Z79.82 Long term (current) use of aspirin; Z79.4 Long term (current) use of insulin; Z79.899 Other long term (current) drug therapy
CPT/HCPCS: 73660; 82948; 99283

== ENCOUNTER 2019-11-03 12:07 | Day surgery (SDC) | payer MEDICARE ==
[~2019-11-03] VITALS: Ht 165.1 cm; Wt 97.8 kg
[2019-11-03] MEDS ORDERED: fentaNYL/PF 50MCG/1 ML 2ML syringe ONE (12:26)
[2019-11-03] MEDS ORDERED: heparin 1,000unit/ml 10ml vial 10 ML ONE (12:26)
[2019-11-03] MEDS ORDERED: midazolam 2 mg/2 ml injection ONE (12:26)
[2019-11-03] MEDS ORDERED: LIDOcaine 1%/PF 5ML 10 MG/ML VIAL ONE (12:26)
[2019-11-03 12:30] VITALS: BP 112/61
[2019-11-03] MEDS ORDERED: normal saline 1000ml 1,000 ML IV PRN (12:35)
--- NOTE | 2019-11-03 12:55 | NUR ---
PT DIFFICULT PIV START, DR MARYJANE CABRERA WILL ADMINISTER MEDS THROUGH EXISTING CATH Addendum: 11/03/19 at 1257 by Jessica Oliveira RN Amended: Links added.
[2019-11-03 13:43] VITALS: BP 125/63
[2019-11-03 13:45] VITALS: BP 125/64
[2019-11-03 14:00] VITALS: BP 141/89
[2019-11-03 14:15] VITALS: BP 113/77
[2019-11-03 14:30] VITALS: BP 116/66
== END 2019-11-03 14:45 | disposition home or self-care (01) ==
LOC: SSTAY O 12:07
PROVIDERS: ATTEND Radiology Diagnostic Radiology
DX: T82.868A Thrombosis due to vascular prosthetic devices, implants and grafts, initial encounter (principal); E11.22 Type 2 diabetes mellitus with diabetic chronic kidney disease; N18.9 Chronic kidney disease, unspecified; I25.10 Atherosclerotic heart disease of native coronary artery without angina pectoris; Z88.5 Allergy status to narcotic agent; Z88.8 Allergy status to other drugs, medicaments and biological substances; Z88.1 Allergy status to other antibiotic agents; Z95.5 Presence of coronary angioplasty implant and graft; Z85.850 Personal history of malignant neoplasm of thyroid; Z79.82 Long term (current) use of aspirin; Z79.01 Long term (current) use of anticoagulants; Z79.899 Other long term (current) drug therapy; Z79.4 Long term (current) use of insulin; Z82.49 Family history of ischemic heart disease and other diseases of the circulatory system; Z83.3 Family history of diabetes mellitus; Y83.2 Surgical operation with anastomosis, bypass or graft as the cause of abnormal reaction of the patient, or of later complication, without mention of misadventure at the time of the procedure; Y92.89 Other specified places as the place of occurrence of the external cause
CPT/HCPCS: 76536; C1751; C1769; C1894; J1644; J2250; J3010; 99152; 99153; A9270

== ENCOUNTER 2019-12-17 12:07 | Emergency (ER) | payer MEDICARE ==
[2019-12-17 12:15] VITALS: BP 146/54
[2019-12-17] MEDS ORDERED: HYDROcodone/acetaminophen 5mg/325mg tablet PO ONE (13:50)
== END 2019-12-17 14:37 | disposition home or self-care (01) ==
LOC: ER 12:07
DX: M25.511 Pain in right shoulder (principal); J90 Pleural effusion, not elsewhere classified; I25.10 Atherosclerotic heart disease of native coronary artery without angina pectoris; J44.9 Chronic obstructive pulmonary disease, unspecified; I25.2 Old myocardial infarction; G89.29 Other chronic pain; F32.9 Major depressive disorder, single episode, unspecified; I13.2 Hypertensive heart and chronic kidney disease with heart failure and with stage 5 chronic kidney disease, or end stage renal disease; E11.22 Type 2 diabetes mellitus with diabetic chronic kidney disease; N18.6 End stage renal disease; I50.9 Heart failure, unspecified; Z98.51 Tubal ligation status; Z90.49 Acquired absence of other specified parts of digestive tract; Z98.61 Coronary angioplasty status; Z60.2 Problems related to living alone; Z56.0 Unemployment, unspecified; Z99.2 Dependence on renal dialysis; Z88.1 Allergy status to other antibiotic agents; Z88.5 Allergy status to narcotic agent; Z88.8 Allergy status to other drugs, medicaments and biological substances; Z79.82 Long term (current) use of aspirin; Z79.4 Long term (current) use of insulin; Z79.899 Other long term (current) drug therapy; W05.0XXA Fall from non-moving wheelchair, initial encounter; Y93.89 Activity, other specified; Y92.89 Other specified places as the place of occurrence of the external cause; Y99.8 Other external cause status
CPT/HCPCS: 73030; 99284

== ENCOUNTER 2020-01-02 00:50 | Emergency (ER) | payer MEDICARE, OTHER ==
[~2020-01-02] VITALS: Ht 165.1 cm; Wt 86.4 kg
[~2020-01-02 00:50] MED LIST changes: -LANTUS SQ
[2020-01-02 01:35] LABS: BASOPHILS # (AUTO) 0.1 X10'3 (0-0.2); BASOPHILS % (AUTO) 0.7 % (0-1); EOSINOPHILS # (AUTO) 0.1 X10'3 (0-0.9); EOSINOPHILS % (AUTO) 0.8 % (0-6); HEMATOCRIT 30.9 % (35.0-45.0); HEMOGLOBIN 9.9 g/dl (12.0-16.0); LYMPHOCYTES # (AUTO) 0.8 X10'3 (1.1-4.8); LYMPHOCYTES % (AUTO) 7.4 % (21-51); MEAN CORPUSCULAR VOLUME 106.2 FL (78-98); MEAN PLATELET VOLUME 8.8 FL (7.4-10.4); MONOCYTES # (AUTO) 0.5 X10'3 (0-0.9); NEUTROPHILS # (AUTO) 9.4 X10'3 (1.8-7.7); NEUTROPHILS % (AUTO) 86.1 % (42-75); PLATELET COUNT 201 X10'3 (140-440); RED BLOOD COUNT 2.91 X10'6 (4.20-5.60); RED CELL DISTRIBUTION WIDTH 17.3 % (11.5-14.5); WHITE BLOOD COUNT 10.9 X10'3 (4.5-11.0)
[2020-01-02 01:46] LABS: ALANINE AMINOTRANSFERASE 17 U/L (12-78); ALBUMIN/GLOBULIN RATIO 0.6 (1.1-1.5); ALKALINE PHOSPHATASE 78 IU/L (46-116); ANION GAP 8 (8-16); ASPARTATE AMINO TRANSFERASE 20 U/L (10-37); BILIRUBIN,TOTAL 1.4 MG/DL (0.1-1.0); BLOOD UREA NITROGEN 58 MG/DL (7-18); BUN/CREATININE RATIO 8.4 (6.6-38.0); CALCIUM 8.9 MG/DL (8.5-10.1); CHLORIDE 98 MMOL/L (99-107); CREATININE 6.94 MG/DL (0.40-0.90); GLUCOSE 174 MG/DL (70-104); LIPASE 98 U/L (73-393); POTASSIUM 4.9 MMOL/L (3.5-5.1); SODIUM 138 MMOL/L (135-145); TOTAL CARBON DIOXIDE 31.6 MMOL/L (24-32); TOTAL PROTEIN 8.4 G/DL (6.4-8.2); eGFR 6 ML/MIN
[2020-01-02] MEDS ORDERED: magnesium citrate 296ml oral solution PO ONE (02:05)
[2020-01-02] MEDS ORDERED: famotidine 10mg tablet PO ONE (03:15)
[2020-01-02] MEDS ORDERED: ondansetron/PF 4mg/2ml inj IM ONE (03:15)
[2020-01-02] MEDS ORDERED: pantoprazole 40mg Tablet.DR PO ONE (03:15)
[2020-01-02] MEDS ORDERED: mag hydrox/Alum hydrox/simeth 30ml oral suspension PO ONE (03:15)
[2020-01-02 03:31] VITALS: BP 101/54
== END 2020-01-02 03:33 | disposition home or self-care (01) ==
LOC: ER 00:51
DX: K59.00 Constipation, unspecified (principal); R10.10 Upper abdominal pain, unspecified; I25.10 Atherosclerotic heart disease of native coronary artery without angina pectoris; I50.9 Heart failure, unspecified; I13.2 Hypertensive heart and chronic kidney disease with heart failure and with stage 5 chronic kidney disease, or end stage renal disease; I25.2 Old myocardial infarction; J44.9 Chronic obstructive pulmonary disease, unspecified; N18.6 End stage renal disease; E11.22 Type 2 diabetes mellitus with diabetic chronic kidney disease; G89.29 Other chronic pain; F32.9 Major depressive disorder, single episode, unspecified; Z90.49 Acquired absence of other specified parts of digestive tract; Z98.61 Coronary angioplasty status; Z98.51 Tubal ligation status; Z95.0 Presence of cardiac pacemaker; Z98.890 Other specified postprocedural states; Z60.2 Problems related to living alone; Z56.0 Unemployment, unspecified; Z88.5 Allergy status to narcotic agent; Z88.8 Allergy status to other drugs, medicaments and biological substances; Z79.82 Long term (current) use of aspirin; Z79.899 Other long term (current) drug therapy; Z99.2 Dependence on renal dialysis
CPT/HCPCS: 36415; 74176; 80053; 83605; 83690; 85025; 93005; 96372; 99285; J2405

== ENCOUNTER 2020-01-13 19:03 | Emergency (ER) | payer MEDICARE ==
[~2020-01-13] VITALS: Ht 165.1 cm; Wt 81.8 kg
[~2020-01-13 19:03] MED LIST changes: +LEVO500T89 PO; +PRED10TA PO
[2020-01-13 19:53] LABS: BASOPHILS # (AUTO) 0.1 X10'3 (0-0.2); BASOPHILS % (AUTO) 0.9 % (0-1); EOSINOPHILS # (AUTO) 0.1 X10'3 (0-0.9); EOSINOPHILS % (AUTO) 0.7 % (0-6); HEMATOCRIT 33.9 % (35.0-45.0); HEMOGLOBIN 10.6 g/dl (12.0-16.0); LYMPHOCYTES # (AUTO) 0.9 X10'3 (1.1-4.8); LYMPHOCYTES % (AUTO) 10.9 % (21-51); MEAN CORPUSCULAR HEMOGLOBIN 33.1 PG (27.0-31.0); MEAN CORPUSCULAR HGB CONC 31.2 g/dL (33.0-36.5); MEAN CORPUSCULAR VOLUME 106.1 FL (78-98); MEAN PLATELET VOLUME 9.9 FL (7.4-10.4); MONOCYTES # (AUTO) 0.4 X10'3 (0-0.9); MONOCYTES % (AUTO) 4.4 % (2-12); NEUTROPHILS # (AUTO) 6.8 X10'3 (1.8-7.7); NEUTROPHILS % (AUTO) 83.1 % (42-75); PLATELET COUNT 135 X10'3 (140-440); RED CELL DISTRIBUTION WIDTH 17.1 % (11.5-14.5); WHITE BLOOD COUNT 8.2 X10'3 (4.5-11.0)
[2020-01-13 20:15] LABS: ALANINE AMINOTRANSFERASE 18 U/L (12-78); ALBUMIN 3.5 G/DL (3.4-5.0); ALBUMIN/GLOBULIN RATIO 0.8 (1.1-1.5); ALKALINE PHOSPHATASE 70 IU/L (46-116); ANION GAP 12 (8-16); ASPARTATE AMINO TRANSFERASE 29 U/L (10-37); BILIRUBIN,TOTAL 1.3 MG/DL (0.1-1.0); BLOOD UREA NITROGEN 53 MG/DL (7-18); BUN/CREATININE RATIO 9.4 (6.6-38.0); CALCIUM 8.7 MG/DL (8.5-10.1); CHLORIDE 98 MMOL/L (99-107); CREATININE 5.62 MG/DL (0.40-0.90); GLUCOSE 111 MG/DL (70-104); LIPASE 104 U/L (73-393); POTASSIUM 4.3 MMOL/L (3.5-5.1); SODIUM 142 MMOL/L (135-145); TOTAL CARBON DIOXIDE 31.8 MMOL/L (24-32); eGFR 8 ML/MIN
--- NOTE | 2020-01-13 21:19 | NUR ---
PT REPORTS THAT SHE DOES NOT PRODUCE URINE.
[2020-01-13 21:25] LABS: PARTIAL THROMBOPLASTIN TIME 25 SECONDS (22-32)
[2020-01-13 23:46] VITALS: BP 120/60
== END 2020-01-14 00:05 | disposition home or self-care (01) ==
LOC: ER 19:04
DX: I13.2 Hypertensive heart and chronic kidney disease with heart failure and with stage 5 chronic kidney disease, or end stage renal disease (principal); E11.22 Type 2 diabetes mellitus with diabetic chronic kidney disease; N18.6 End stage renal disease; E87.70 Fluid overload, unspecified; R34 Anuria and oliguria; R10.84 Generalized abdominal pain; R11.2 Nausea with vomiting, unspecified; I50.9 Heart failure, unspecified; F17.200 Nicotine dependence, unspecified, uncomplicated; Z99.2 Dependence on renal dialysis; Z90.49 Acquired absence of other specified parts of digestive tract; Z95.0 Presence of cardiac pacemaker; Z98.51 Tubal ligation status; Z98.890 Other specified postprocedural states; Z60.2 Problems related to living alone; Z56.0 Unemployment, unspecified; Z88.1 Allergy status to other antibiotic agents; Z79.82 Long term (current) use of aspirin; Z79.899 Other long term (current) drug therapy
CPT/HCPCS: 36415; 71045; 80053; 83690; 85025; 85610; 85730; 86885; 86900; 86901; 93005; 99285

== ENCOUNTER 2020-01-18 06:45 | Emergency (ER) | payer MEDICARE ==
[~2020-01-18] VITALS: Ht 165.1 cm; Wt 86.4 kg
[~2020-01-18 06:45] MED LIST changes: -LEVO500T89 PO
[2020-01-18 06:53] VITALS: BP 103/57
== END 2020-01-18 08:58 | disposition home or self-care (01) ==
LOC: ER 06:46
DX: T82.49XA Other complication of vascular dialysis catheter, initial encounter (principal); N18.6 End stage renal disease; I25.10 Atherosclerotic heart disease of native coronary artery without angina pectoris; I50.9 Heart failure, unspecified; I13.2 Hypertensive heart and chronic kidney disease with heart failure and with stage 5 chronic kidney disease, or end stage renal disease; I25.2 Old myocardial infarction; J44.9 Chronic obstructive pulmonary disease, unspecified; E11.22 Type 2 diabetes mellitus with diabetic chronic kidney disease; Z86.14 Personal history of Methicillin resistant Staphylococcus aureus infection; Z90.49 Acquired absence of other specified parts of digestive tract; Z95.0 Presence of cardiac pacemaker; Z98.61 Coronary angioplasty status; Z98.51 Tubal ligation status; Z98.890 Other specified postprocedural states; Z60.2 Problems related to living alone; Z56.0 Unemployment, unspecified; Z88.8 Allergy status to other drugs, medicaments and biological substances; Z79.82 Long term (current) use of aspirin; Z79.899 Other long term (current) drug therapy; Z88.3 Allergy status to other anti-infective agents; Y92.89 Other specified places as the place of occurrence of the external cause
CPT/HCPCS: 99284